=== PATIENT | female | born 1975 | race American Indian/Alaskan Native ===

== ENCOUNTER 2018-01-09 20:19 | Emergency (ER) | payer BC ==
[2018-01-09 21:20] LABS: Basophils % (Auto) 0.3 % (0.0-1.8); Eosinophils % (Auto) 0.1 % (0.0-4.3); Hematocrit 39.4 % (30.3-42.9); Hemoglobin 13.4 gm/dl (10.1-14.3); Lymphocytes # (Auto) 1.5 K/mm3 (1.2-5.4); Mean Corpuscular HGB Conc 34 % (30-34); Mean Corpuscular Hemoglobin 29 pg (28-32); Mean Corpuscular Volume 86 fl (79-97); Monocytes # (Auto) 1.4 K/mm3 (0.0-0.8); Monocytes % (Auto) 9.6 % (0.0-7.3); Platelet Count 300 K/mm3 (140-440); Red Blood Count 4.58 M/mm3 (3.65-5.03); Red Cell Distribution Width 14.4 % (13.2-15.2)
[2018-01-09 21:29] LABS: Alanine Aminotransferase 8 units/L (7-56); BUN/Creatinine Ratio 13; Blood Urea Nitrogen 10 mg/dL (7-17); Calcium 8.6 mg/dL (8.4-10.2); Hemolysis Index 8
[2018-01-09 22:31] LABS: HCG Qualitative,Urine Negative (Negative)
--- NOTE | 2018-01-09 23:10 | XRay Report ---
FINAL REPORT PROCEDURE: XR CHEST ROUTINE 2V TECHNIQUE: PA and lateral chest radiographs were obtained. CPT 96997 HISTORY: cough, fever COMPARISON: No prior studies are available for comparison. FINDINGS: Heart: Normal. Mediastinum/Vessels: Normal. Lungs/Pleural space: Normal. Bony thorax: No acute osseous abnormality. Other: IMPRESSION: Normal examination.
[2018-01-09] MEDS ORDERED: NACL 0.9% 1000 ML 1,000 ML IV ONE (23:29)
[2018-01-09] MEDS ORDERED: CLEOCIN 600 MG/50 mL 600 MG/50 ML BAG IV ONE (23:29)
[2018-01-09] MEDS ORDERED: FLAGYL 500 MG/100 ML 500 MG/100 ML BAG IV ONE (23:29)
--- NOTE | 2018-01-09 23:44 | Emergency Department Report ---
ED Abdominal Pain HPI - General Chief Complaint: Fever Stated Complaint: FEVER; BODYACHES Time Seen by Provider: 01/09/18 23:00 Source: patient Mode of arrival: Wheelchair Limitations: No Limitations - History of Present Illness Initial Comments: This is a 42-year-old female nontoxic, well nourished in appearance, no acute signs of distress presents to the ED with c/o of abdominal pain, fever, chills, body aches and nausea 1. Patient denies any vomiting. Patient describes abdominal pain primarily in the right and left upper quadrant. Patient stated he has subjective fever. Patient denies taking anything [id number]. Patient denies any recent travels or long car rides. Patient denies any chest pain, short of breath, numbness, tingling, back pain, headache, stiff neck. Patient denies any urinary symptoms. Patient states allergies to penicillin. Past medical history includes arthritis, asthma, hypertension and headache and seizures. MD Complaint: abdominal pain -: This morning Location: LUQ, RUQ Radiation: none Migration to: no migration Severity scale (0 -10): 8 Quality: cramping, aching Consistency: constant Improves With: nothing Worsens With: nothing Associated Symptoms: nausea, fever. denies: vomiting, diarrhea, chills, constipation, dysuria, hematemesis, hematochezia, melena, hematuria, anorexia, syncope - Related Data Home Medications Medication Instructions Recorded Confirmed Last Taken Albuterol Sulfate [Ventolin HFA] 2 puff INHALATION Q4HR PRN 08/29/13 10/31/14 Unknown Lisinopril/Hydrochlorothiazide 1 tab PO QDAY 08/29/13 10/31/14 11/01/13 [Zestoretic 20-25 mg] Metoprolol Xl [Metoprolol 1 tab PO QDAY 08/29/13 10/31/14 11/01/13 SUCCINATE ER TAB] Previous Rx's Medication Instructions Recorded Last Taken Type Albuterol *Only Ed* [Proventil 2.5 mg IH Q4H PRN #1 pack 08/29/13 11/01/13 Rx 0.5% NEBS] Albuterol Sulfate [Ventolin HFA] 2 puff IH Q4H PRN #1 hfa.aer.ad 08/29/13 18:00 Rx HYDROcodone/APAP 5-325 [[place] 1 each PO Q8HR PRN #14 tablet 01/10/15 Unknown Rx 5/325] Ibuprofen [Motrin 800 MG tab] 800 mg PO TID PRN #30 tablet 01/10/15 Unknown Rx methOCARBAMOL [Robaxin] 500 mg PO BID PRN #30 tab 01/10/15 Unknown Rx Albuterol Sulfate [Albuterol 0.63% 0.63 mg IH Q4HR PRN #2 ml 11/03/15 Unknown Rx NEBS] Albuterol Sulfate [Proair 90 mcg IH Q4HR PRN #2 aer.pow.ba 11/03/15 Unknown Rx Respiclick] Ipratropium Munday [Atrovent Hfa] 12.9 gm IH Q4HR #2 hfa.aer.ad 11/03/15 Unknown Rx Ipratropium [Atrovent NEB] 0.5 mg IH Q4HR #2 ml 11/03/15 Unknown Rx predniSONE [Deltasone] 40 mg PO QDAY #8 tab 11/03/15 Unknown Rx Cyclobenzaprine [Flexeril] 10 mg PO TID PRN #15 tablet 07/22/16 Unknown Rx Ibuprofen [Motrin] 800 mg PO Q8HR PRN #15 tablet 07/22/16 Unknown Rx Clindamycin [Clindamycin CAP] 300 mg PO Q8H 7 Days cap 01/10/18 Unknown Rx Fluconazole [Diflucan TAB] 150 mg PO ONCE #1 tablet 01/10/18 Unknown Rx Ibuprofen [Motrin] 600 mg PO Q6H PRN #30 tablet 01/10/18 Unknown Rx Allergies Allergy/AdvReac Type Severity Reaction Status Date / Time Penicillins Allergy Rash Verified 07/23/14 16:50 Tomato Allergy Hives Uncoded 07/21/16 22:52 ED Review of Systems ROS: Stated complaint: FEVER; BODYACHES Other details as noted in HPI Constitutional: fever. denies: chills Eyes: denies: eye pain, eye discharge, vision change ENT: denies: ear pain, throat pain Respiratory: denies: cough, shortness of breath, wheezing Cardiovascular: denies: chest pain, palpitations Endocrine: no symptoms reported Gastrointestinal: abdominal pain, nausea. denies: vomiting, diarrhea, constipation Genitourinary: denies: urgency, dysuria, discharge Musculoskeletal: denies: back pain, joint swelling, arthralgia Skin: denies: rash, lesions Neurological: denies: headache, weakness, paresthesias Psychiatric: denies: anxiety, depression Hematological/Lymphatic: denies: easy bleeding, easy bruising ED Past Medical Hx - Past Medical History Previous Medical History?: Yes Hx Hypertension: Yes Hx Arthritis: Yes Hx Headaches / Migraines: Yes Hx Seizures: Yes Hx Asthma: Yes Additional medical history: anemia, svt, endometriosis - Surgical History Past Surgical History?: Yes Additional Surgical History: hernia, tubal ligation knee surgery - Social History Smoking Status: Never Smoker Substance Use Type: None - Medications Home Medications: Home Medications Medication Instructions Recorded Confirmed Last Taken Type Albuterol *Only Ed* [Proventil 2.5 mg IH Q4H PRN #1 pack 08/29/13 10/31/1405/07 Rx 0.5% NEBS] Albuterol Sulfate [Ventolin HFA] 2 puff IH Q4H PRN #1 hfa.aer.ad 08/29/1311/01/13 18:00 Rx Albuterol Sulfate [Ventolin HFA] 2 puff INHALATION Q4HR PRN 08/29/13 10/31/14 Unknown History Lisinopril/Hydrochlorothiazide 1 tab PO QDAY 08/29/13 10/31/14 11/01/13 History [Zestoretic 20-25 mg] Metoprolol Xl [Metoprolol 1 tab PO QDAY 08/29/13 10/31/14 11/01/13 History SUCCINATE ER TAB] HYDROcodone/APAP 5-325 [[place] 1 each PO Q8HR PRN #14 tablet 01/10/15 Unknown Rx 5/325] Ibuprofen [Motrin 800 MG tab] 800 mg PO TID PRN #30 tablet 01/10/15 Unknown Rx methOCARBAMOL [Robaxin] 500 mg PO BID PRN #30 tab 01/10/15 Unknown Rx Albuterol Sulfate [Albuterol 0.63% 0.63 mg IH Q4HR PRN #2 ml 11/03/15 Unknown Rx NEBS] Albuterol Sulfate [Proair 90 mcg IH Q4HR PRN #2 aer.pow.ba 11/03/15 Unknown Rx Respiclick] Ipratropium Munday [Atrovent Hfa] 12.9 gm IH Q4HR #2 hfa.aer.ad 11/03/15 Unknown Rx Ipratropium [Atrovent NEB] 0.5 mg IH Q4HR #2 ml 11/03/15 Unknown Rx predniSONE [Deltasone] 40 mg PO QDAY #8 tab 11/03/15 Unknown Rx Cyclobenzaprine [Flexeril] 10 mg PO TID PRN #15 tablet 07/22/16 Unknown Rx Ibuprofen [Motrin] 800 mg PO Q8HR PRN #15 tablet 07/22/16 Unknown Rx Clindamycin [Clindamycin CAP] 300 mg PO Q8H 7 Days cap 01/10/18 Unknown Rx Fluconazole [Diflucan TAB] 150 mg PO ONCE #1 tablet 01/10/18 Unknown Rx Ibuprofen [Motrin] 600 mg PO Q6H PRN #30 tablet 01/10/18 Unknown Rx ED Physical Exam - General Limitations: No Limitations General appearance: alert, in no apparent distress - Head Head exam: Present: atraumatic, normocephalic - Eye Eye exam: Present: normal appearance Pupils: Present: normal accommodation - ENT ENT exam: Present: normal exam, mucous membranes moist - Neck Neck exam: Present: normal inspection, full ROM. Absent: tenderness, meningismus, lymphadenopathy - Respiratory Respiratory exam: Present: normal lung sounds bilaterally. Absent: respiratory distress, wheezes, rales, rhonchi, stridor, chest wall tenderness, accessory muscle use, decreased breath sounds, prolonged expiratory - Cardiovascular Cardiovascular Exam: Present: regular rate, normal rhythm, tachycardia, normal heart sounds. Absent: irregular rhythm, systolic murmur, diastolic murmur, rubs , gallop - GI/Abdominal GI/Abdominal exam: Present: soft, tenderness (Right and Left upper quadrants), normal bowel sounds. Absent: distended, guarding, rebound, rigid, diminished bowel sounds - Expanded GI/Abdominal Exam Expanded GI/Abdominal exam: Absent: psoas sign, obturator sign, heel tap sign, Felipe's sign, Rovsing's sign, tenderness at [place]bur[place]'s Point, ascites - Rectal Rectal exam: Present: deferred - Extremities Exam Extremities exam: Present: normal inspection, full ROM, normal capillary refill. Absent: tenderness, calf tenderness - Back Exam Back exam: Present: normal inspection, full ROM. Absent: tenderness, CVA tenderness (R), CVA tenderness (L), muscle spasm, paraspinal tenderness, vertebral tenderness, rash noted - Neurological Exam Neurological exam: Present: alert, oriented X3, CN II-XII intact, normal gait - Psychiatric Psychiatric exam: Present: normal affect, normal mood - Skin Skin exam: Present: warm, dry, intact, normal color. Absent: rash ED Course Vital Signs 01/09/18 01/09/18 01/09/18 20:30 20:35 23:42 Temperature 99.1 F 99.1 F 98.8 F Pulse Rate 114 H 117 H 82 Respiratory 17 17 20 Rate Blood Pressure 145/95 Blood Pressure 145/95 137/91 [Left] O2 Sat by Pulse 98 99 99 Oximetry - Reevaluation(s) Reevaluation #1: 01/09/18 23:44 Patient is speaking in full sentences with no signs of distress noted. ED Medical Decision Making - Lab Data Result diagrams: 01/09/18 20:54 01/09/18 20:50 - Medical Decision Making This is a 42-year-old female that presents with bodyaches and abdominal pain. Patient is stable and was examined by me. Dr. Saldana was consulted about patient and agrees to the ED plan of care and discharge. Labs obtained. Chest x -ray obtained and within normal limits and dictated by the radiologist. Patient denies any respiratory symptoms. CT of abdomen/pelvis with contrast obtained and also dictated by the radiologist within normal limits. EKG obtained with normal sinus rhytm. Sepsis protocol orders obtained. Vital signs stable prior to discharge. Patient did receive clindamycin and Flagyl IV in the ED. I will discharge patient with clindamycin and Motrin. Fever episode. Patient also received 1 L of normal saline. Patient's mother is comfortable at the bedside and states she will go the patient after discharge due to drowsiness of morphine. Patient was referred to Follow-up with a primary care doctor in 3-5 days or if symptoms worsen and continue return to emergency room as soon as possible. At time of discharge, the patient does not seem toxic or ill in appearance. No acute signs of distress noted. Patient agrees to discharge treatment plan of care. No further questions noted by the patient. Critical care attestation.: If time is entered above; I have spent that time in minutes in the direct care of this critically ill patient, excluding procedure time. ED Disposition Clinical Impression: Body aches Abdominal pain Qualifiers: Abdominal location: upper abdomen, unspecified Qualified Code(s): R10.10 - Upper abdominal pain, unspecified Disposition: DC- TO HOME OR SELFCARE Is pt being admited?: No Does the pt Need Aspirin: No Condition: Stable Instructions: Abdominal Pain (ED) Additional Instructions: Follow-up with a primary care doctor in 3-5 days or if symptoms worsen and continue return to emergency room as soon as possible. Prescriptions: Clindamycin [Clindamycin CAP] 300 mg PO Q8H 7 Days cap Fluconazole [Diflucan TAB] 150 mg PO ONCE #1 tablet Ibuprofen [Motrin] 600 mg PO Q6H PRN #30 tablet PRN Reason: Fever Referrals: RYAN WEST MD [Primary Care Provider] - 3-5 Days PRIMARY CARE, [Referring] - 3-5 Days [facility] [Outside] - 3-5 Days [facility] [Outside] - 3-5 Days Forms: Work/School Release Form(ED)
[2018-01-09] MEDS ORDERED: NACL ONE (23:51)
[2018-01-10 00:19] LABS: Lipase 14 units/L (13-60)
[2018-01-10] MEDS ORDERED: ZOFRAN IV ONE (01:05)
[2018-01-10] MEDS ORDERED: MORPHINE IV ONE (01:05)
[2018-01-10 01:57] LABS: Bacteria,Urine 1+ /HPF (Negative); Bilirubin,Urine NEG (Negative); Blood,Urine MOD (Negative); Color,Urine Yellow (Yellow); Mucus,Urine FEW /HPF; Protein,Urine <15 mg/dL mg/dL (Negative)
--- NOTE | 2018-01-10 02:03 | Cat Scan Report ---
FINAL REPORT PROCEDURE: CT ABDOMEN PELVIS W CON TECHNIQUE: Computerized axial tomography of the abdomen and pelvis was performed after the IV injection of iodinated nonionic contrast. HISTORY: Fever/Sepsis COMPARISON: No prior studies are available for comparison. FINDINGS: Visualized lower thorax: No significant abnormality. Liver: Normal size and attenuation. Spleen: Normal size and attenuation. Gallbladder and biliary system: Normal. Pancreas: Normal. Adrenals: Normal. Kidneys: Normal. GI tract: There is no bowel obstruction, colitis or enteritis. The appendix is normal.. Lymph nodes and mesentery: Normal. Vasculature: Normal. Bladder: Normal. Reproductive organs: Uterus is intact.. There is small uterine fibroids. There is a 2.4 centimeter left ovarian cyst. Peritoneum: There is no ascites, free air, abscess or adenopathy.. Musculoskeletal structures: No significant abnormality. Other: None. IMPRESSION: There is no bowel obstruction, colitis or enteritis. The appendix is normal.. Uterus is intact.. There is small uterine fibroids. There is a 2.4 centimeter left ovarian cyst. There is no ascites, free air, abscess or adenopathy..
[2018-01-10 04:57] VITALS: BP 125/78
== END 2018-01-10 04:54 | disposition home or self-care (01) ==
LOC: ED 20:19
DX: R10.9 Unspecified abdominal pain (principal); M79.1 Myalgia; I10 Essential (primary) hypertension; J45.909 Unspecified asthma, uncomplicated
CPT/HCPCS: 36415; 71046; 74177; 80053; 81001; 81025; 82140; 82150; 83690; 85025; 87040; 87086; 93005; 93010; 96365; 96366; 96368; 96375; 99285; J2270; J2405; J7030; Q9967

== ENCOUNTER 2018-02-25 17:00 | Emergency (ER) | payer BC ==
[2018-02-25] MEDS ORDERED: HCTZ PO ONE (18:24)
[2018-02-25] MEDS ORDERED: ZESTRIL PO ONE (18:24)
[2018-02-25] MEDS ORDERED: NORVASC ONE (18:34)
[2018-02-25 18:42] VITALS: BP 186/118
[2018-02-25] MEDS ORDERED: NORVASC PO ONE (18:44)
[2018-02-25] MEDS ORDERED: TOPROL XL PO ONE (19:30)
[2018-02-25 19:59] LABS: Basophils % (Auto) 0.5 % (0.0-1.8); Eosinophils % (Auto) 0.2 % (0.0-4.3); Hematocrit 39.4 % (30.3-42.9); Hemoglobin 13.1 gm/dl (10.1-14.3); Lymphocytes # (Auto) 1.9 K/mm3 (1.2-5.4); Lymphocytes % (Auto) 19.6 % (13.4-35.0); Mean Corpuscular HGB Conc 33 % (30-34); Mean Corpuscular Hemoglobin 29 pg (28-32); Mean Corpuscular Volume 87 fl (79-97); Monocytes # (Auto) 0.7 K/mm3 (0.0-0.8); Monocytes % (Auto) 7.8 % (0.0-7.3); Platelet Count 318 K/mm3 (140-440); Red Blood Count 4.53 M/mm3 (3.65-5.03)
[2018-02-25 20:22] LABS: BUN/Creatinine Ratio 14; Blood Urea Nitrogen 11 mg/dL (7-17); Calcium 9.2 mg/dL (8.4-10.2); Hemolysis Index 62
== END 2018-02-26 00:22 | disposition left against medical advice (07) ==
LOC: ED 17:00
DX: M79.602 Pain in left arm (principal); Z53.21 Procedure and treatment not carried out due to patient leaving prior to being seen by health care provider
CPT/HCPCS: 36415; 80048; 85025

== ENCOUNTER 2019-01-30 17:16 | Inpatient (IN) | payer BC ==
[2019-01-30] MEDS ORDERED: ATROVENT IH ONE (17:27)
[2019-01-30] MEDS ORDERED: PROVENTIL IH ONE (17:27)
[2019-01-30 17:48] LABS: Basophils % (Auto) 0.4 % (0.0-1.8); Eosinophils % (Auto) 0.2 % (0.0-4.3); Hematocrit 36.1 % (30.3-42.9); Hemoglobin 12.3 gm/dl (10.1-14.3); Lymphocytes # (Auto) 2.4 K/mm3 (1.2-5.4); Lymphocytes % (Auto) 42.6 % (13.4-35.0); Mean Corpuscular HGB Conc 34 % (30-34); Mean Corpuscular Volume 88 fl (79-97); Monocytes # (Auto) 0.4 K/mm3 (0.0-0.8); Monocytes % (Auto) 7.1 % (0.0-7.3); Platelet Count 232 K/mm3 (140-440); Red Blood Count 4.11 M/mm3 (3.65-5.03); Red Cell Distribution Width 14.5 % (13.2-15.2)
[2019-01-30] MEDS ORDERED: DELTASONE PO ONE (18:03)
[2019-01-30 18:04] LABS: BUN/Creatinine Ratio 18; Blood Urea Nitrogen 11 mg/dL (7-17); Calcium 8.8 mg/dL (8.4-10.2); Hemolysis Index 7
--- NOTE | 2019-01-30 18:05 | XRay Report ---
PROCEDURE: XR CHEST 1V AP TECHNIQUE: Chest radiograph , single frontal view. HISTORY: Chest Pain, DENAE COMPARISONS: CXR 03/26/2018 . FINDINGS: Heart: Normal. Mediastinum/Vessels: Normal. Lungs/Pleural space: Normal. Bony thorax: No acute osseous abnormality. Life support devices: None. IMPRESSION: No acute cardiopulmonary abnormality. No change This document is electronically signed by Roberta York MD., Jan 30 2019 06:03:41 PM ET
--- NOTE | 2019-01-30 18:08 | Emergency Department Report ---
ED Asthma HPI - General Chief Complaint: Dyspnea/Respdistress Stated Complaint: ASTHMA FLARE UP Time Seen by Provider: 01/30/19 17:56 Source: patient Mode of arrival: Ambulatory Limitations: No Limitations - History of Present Illness Initial Comments: Ms. Alvarado is a 43-year-old female with past medical history of seizure, migraine headache, asthma, diabetes, hypertension who presents with shortness of breath, wheezing and cough. She has mild chest tightness. No relief with home nebulizer and bronchodilator therapy. She has had persistent dry cough and wheezing throughout the day beginning this morning. Feels out of breath. Possible trigger: pollen NO sick contacts MD Complaint: "asthma attack", shortness of breath, wheezing -: Gradual, This afternoon Severity: mild Context: none known Associated Symptoms: dry cough, chest pain Treatments Prior to Arrival: inhaled bronchodilator - Related Data Current Asthma Therapy: inhaled bronchodilator Home Medications Medication Instructions Recorded Confirmed Last Taken Albuterol Sulfate [Ventolin HFA] 2 puff INHALATION Q4HR PRN 08/29/13 10/17/18 Unknown Amlodipine Besylate [Norvasc] 5 mg PO QDAY 03/27/18 10/17/18 09/06/18 Divalproex Sodium [Depakote ER] 3,000 mg PO HS 03/27/18 10/18/18 09/06/18 Previous Rx's Medication Instructions Recorded Last Taken Type Famotidine [Pepcid] 20 mg PO BID #60 tablet 03/28/18 09/06/18 Rx Cyclobenzaprine [Flexeril 10 MG 10 mg PO TID PRN #12 tablet 08/07/18 09/04/18 Rx TAB] Ibuprofen [Motrin 600 MG tab] 600 mg PO Q8H PRN #12 tablet 08/07/18 09/05/18 Rx traMADol [Ultram 50 MG tab] 50 mg PO Q6HR PRN #12 tablet 08/07/18 09/06/18 Rx Aspirin [Aspirin BABY CHEW TAB] 81 mg PO QDAY #30 tab.chew 09/08/18 Unknown Rx Simvastatin [Zocor TAB] 40 mg PO QHS #30 tablet 09/08/18 Unknown Rx Meclizine [Antivert] 25 mg PO Q8H PRN #30 tablet 10/19/18 Unknown Rx Prednisone [predniSONE 10 mg 10 mg PO .TAPER #1 tab.ds.pk 01/30/19 Unknown Rx (6-Day Pack, 21 Tabs)] Allergies Allergy/AdvReac Type Severity Reaction Status Date / Time Penicillins Allergy Rash Verified 10/17/18 15:55 Tomato Allergy Hives Uncoded 07/21/16 22:52 ED Review of Systems ROS: Stated complaint: ASTHMA FLARE UP Other details as noted in HPI Comment: All other systems reviewed and negative Constitutional: denies: fever, malaise Respiratory: cough, shortness of breath, wheezing Cardiovascular: chest pain ED Past Medical Hx - Past Medical History Previous Medical History?: Yes Hx Hypertension: Yes Hx Heart Attack/AMI: No Hx Congestive Heart Failure: No Hx Diabetes: Yes Hx Deep Vein Thrombosis: No Hx Pulmonary Embolism: No Hx Liver Disease: No Hx Arthritis: Yes Hx Headaches / Migraines: Yes Hx Seizures: Yes Hx Asthma: Yes Hx COPD: No Hx Tuberculosis: No Hx Dementia: No Additional medical history: anemia, svt, endometriosis, BOILS - Surgical History Past Surgical History?: Yes Hx Coronary Stent: No Hx Pacemaker: No Hx Internal Defibrillator: No Additional Surgical History: hernia, tubal ligation, right knee surgery, heart ablation. right shoulder dislocation - Social History Smoking Status: Never Smoker - Medications Home Medications: Home Medications Medication Instructions Recorded Confirmed Last Taken Type Albuterol Sulfate [Ventolin HFA] 2 puff INHALATION Q4HR PRN 08/29/13 10/17/18 Unknown History Amlodipine Besylate [Norvasc] 5 mg PO QDAY 03/27/18 10/17/18 09/06/18 History Divalproex Sodium [Depakote ER] 3,000 mg PO HS 03/27/18 10/18/18 09/06/18 His tory Famotidine [Pepcid] 20 mg PO BID #60 tablet 03/28/18 10/17/18 09/06/18 Rx Cyclobenzaprine [Flexeril 10 MG 10 mg PO TID PRN #12 tablet 08/07/18 10/17/18 09/04/18 Rx TAB] Ibuprofen [Motrin 600 MG tab] 600 mg PO Q8H PRN #12 tablet 08/07/18 10/17/18 09/05/18 Rx traMADol [Ultram 50 MG tab] 50 mg PO Q6HR PRN #12 tablet 11/10/17/18 09/06/18 Rx Aspirin [Aspirin BABY CHEW TAB] 81 mg PO QDAY #30 tab.chew 09/08/18 10/17/18 Unknown Rx Simvastatin [Zocor TAB] 40 mg PO QHS #30 tablet 09/08/18 10/17/18 Unknown Rx Meclizine [Antivert] 25 mg PO Q8H PRN #30 tablet 10/19/18 Unknown Rx Prednisone [predniSONE 10 mg 10 mg PO .TAPER #1 tab.ds.pk 01/30/19 Unknown Rx (6-Day Pack, 21 Tabs)] ED Physical Exam - General Limitations: No Limitations General appearance: alert, in no apparent distress, other (frequent cough) - Head Head exam: Present: atraumatic, normocephalic - Eye Eye exam: Present: normal appearance - ENT ENT exam: Present: mucous membranes moist - Neck Neck exam: Present: normal inspection - Respiratory Respiratory exam: Present: wheezes, decreased breath sounds, prolonged expiratory. Absent: respiratory distress, rales, rhonchi - Cardiovascular Cardiovascular Exam: Present: regular rate, normal rhythm, normal heart sounds. Absent: systolic murmur, diastolic murmur, rubs, gallop - GI/Abdominal GI/Abdominal exam: Present: soft, normal bowel sounds. Absent: distended, tenderness, guarding, rebound - Extremities Exam Extremities exam: Present: normal inspection - Back Exam Back exam: Present: normal inspection - Neurological Exam Neurological exam: Present: alert, oriented X3 - Psychiatric Psychiatric exam: Present: normal affect, normal mood - Skin Skin exam: Present: warm, dry, intact, normal color. Absent: rash ED Course Vital Signs 01/30/19 01/30/19 01/30/19 17:23 17:31 17:37 Temperature 98.4 F Pulse Rate 120 H Pulse Rate [ 77 Anterior Bilateral] Respiratory 32 H Rate Respiratory 22 Rate [Anterior Bilateral] Blood Pressure 217/112 O2 Sat by Pulse 99 99 Oximetry 01/30/19 01/30/19 01/30/19 17:45 18:00 18:15 Temperature Pulse Rate Pulse Rate [ Anterior Bilateral] Respiratory Rate Respiratory Rate [Anterior Bilateral] Blood Pressure 161/84 176/89 152/81 O2 Sat by Pulse 94 96 97 Oximetry 01/30/19 01/30/19 01/30/19 18:20 18:30 18:40 Temperature Pulse Rate 78 Pulse Rate [ 118 H Anterior Bilateral] Respiratory Rate Respiratory 20 Rate [Anterior Bilateral] Blood Pressure 161/92 O2 Sat by Pulse 97 Oximetry 01/30/19 01/30/19 01/30/19 18:45 19:00 19:15 Temperature Pulse Rate Pulse Rate [ Anterior Bilateral] Respiratory Rate Respiratory Rate [Anterior Bilateral] Blood Pressure 147/80 146/75 125/78 O2 Sat by Pulse 97 96 100 Oximetry 01/30/19 01/30/19 01/30/19 19:30 19:45 20:00 Temperature Pulse Rate Pulse Rate [ Anterior Bilateral] Respiratory Rate Respiratory Rate [Anterior Bilateral] Blood Pressure 141/79 134/78 143/83 O2 Sat by Pulse 99 94 Oximetry - Reevaluation(s) Reevaluation #1: 01/30/19 20:15 mild improvement after continuous neb treatment, still feels short of breath with frequent cough, easily winded with talking in seated position ED Medical Decision Making - Lab Data Result diagrams: 01/30/19 17:36 01/30/19 17:36 - Radiology Data Radiology results: image reviewed interpreted by me: AP portable chest radiograph one view interpreted by me. My impression: No infiltrate, no pneumothorax, normal cardiac silhouette, normal mediastinum, no gross osseous abnormality, no acute process - Medical Decision Making Ms. Alvarado presents with acute asthma exacerbation. blood pressure markedly decreased after receiving asthma treatment. After continuous nebulizer therapy, IV magnesium, oral cough syrup, steroids and antibiotics, Ms. Alvarado still continued to haveshortness of breath frequent cough. Admitted to hospitalist service for further treatment Critical care attestation.: If time is entered above; I have spent that time in minutes in the direct care of this critically ill patient, excluding procedure time. ED Disposition Clinical Impression: Acute asthma exacerbation Disposition: OP ADMIT IP TO THIS HOSP Is pt being admited?: Yes Does the pt Need Aspirin: No Condition: Stable Prescriptions: Prednisone [predniSONE 10 mg (6-Day Pack, 21 Tabs)] 10 mg PO .TAPER #1 tab.ds.pk
[2019-01-30] MEDS ORDERED: TYLENOL #3 PO ONE (18:10)
[2019-01-30] MEDS ORDERED: ZOFRAN ODT PO ONE (18:10)
[2019-01-30] MEDS ORDERED: MAGNESIUM SULFATE 2GM/50ML 2 GM/50 ML BAG IV ONE (20:12)
[2019-01-30] MEDS ORDERED: LEVAQUIN PO ONE (20:12)
[2019-01-30] MEDS ORDERED: ROBITUSSIN AC PO STA (20:13)
[2019-01-30] MEDS ORDERED: TYLENOL PO PRN (22:05)
[2019-01-30] MEDS ORDERED: SODIUM CHLORIDE FLUSH SYRINGE 10 ML IV PRN (22:05)
[2019-01-30] MEDS ORDERED: ZOFRAN IV PRN (22:05)
[2019-01-30] MEDS ORDERED: D50W (25GM) Syringe IV PRN (22:13)
[2019-01-30] MEDS ORDERED: APRESOLINE IV PRN (22:16)
[2019-01-30] MEDS: NORVASC PO SCH (22:22)
--- NOTE | 2019-01-30 22:46 | History and Physical Report ---
History of Present Illness Date of examination: 01/30/19 Date of admission: 01/30/19 21:49 Chief complaint: Shortness of breath History of present illness: Patient is a 43 year old -[place]er female with history of asthma, epilepsy and hypertension who presented to the ED on account of 1 day history of worsening shortness of breath. She had associated dry cough, chest pain, headaches, nausea without vomiting and lightheadedness. She denies palpitation, fever, chills, sore throat, runny nose or congestion, leg swelling, orthopnea or PND. No syncope or loss of consciousness. No abdominal pain, constipation, diarrhea, dysuria or frequency. No reported history of ill contacts. Past History Past Medical History: anemia (iron deficiency), diabetes, hypertension, hyperlipidemia, other (asthma, epilepsy, SVT, vitamin D deficiency) Past Surgical History: hernia repair, Other (Ablation, right knee surgery, tubal ligation, Cyst removal in left arm) Social history: other (patient has a remote history of cigarette smoking. She quit more than 20 years ago. She denies alcohol or illicit drug use.) Family history: diabetes (sister), hypertension (mother) Medications and Allergies Allergies Allergy/AdvReac Type Severity Reaction Status Date / Time Penicillins Allergy Rash Verified 10/17/18 15:55 Tomato Allergy Hives Uncoded 07/21/16 22:52 Home Medications Medication Instructions Recorded Confirmed Last Taken Type Albuterol Sulfate [Ventolin HFA] 2 puff INHALATION Q4HR PRN 08/29/13 10/17/18 Unknown History Amlodipine Besylate [Norvasc] 5 mg PO QDAY 03/27/18 10/17/18 09/06/18 History Divalproex Sodium [Depakote ER] 3,000 mg PO HS 03/27/18 10/18/18 09/06/18 History Famotidine [Pepcid] 20 mg PO BID #60 tablet 03/28/18 10/17/18 09/06/18 Rx Cyclobenzaprine [Flexeril 10 MG 10 mg PO TID PRN #12 tablet 08/07/18 10/17/18 09/04/18 Rx TAB] Ibuprofen [Motrin 600 MG tab] 600 mg PO Q8H PRN #12 tablet 08/07/18 10/17/18 09/05/18 Rx traMADol [Ultram 50 MG tab] 50 mg PO Q6HR PRN #12 tablet 08/07/18 10/17/18 09/06/18 Rx Aspirin [Aspirin BABY CHEW TAB] 81 mg PO QDAY #30 tab.chew 09/08/18 10/17/18 Unknown Rx Simvastatin [Zocor TAB] 40 mg PO QHS #30 tablet 09/08/18 10/17/18 Unknown Rx Meclizine [Antivert] 25 mg PO Q8H PRN #30 tablet 10/19/18 Unknown Rx Prednisone [predniSONE 10 mg 10 mg PO .TAPER #1 tab.ds.pk 01/30/19 Unknown Rx (6-Day Pack, 21 Tabs)] Active Meds: Active Medications Acetaminophen (Tylenol) 650 mg PO Q4H PRN PRN Reason: Pain MILD(1-3)/Fever >100.5/[facility] Albuterol/Ipratropium (Duoneb *Not For Prn Use*) 1 ampul IH Q4HRT [facility] Amlodipine Besylate (Norvasc) 10 mg PO QDAY [facility] Last Admin: 01/30/19 22:22 Dose: 10 mg Documented by: Dextrose (D50w (25gm) Syringe) 50 ml IV PRN PRN PRN Reason: Hypoglycemia Docusate Sodium (Colace) 100 mg PO BID [facility] Guaifenesin (Mucinex Er) 600 mg PO BID [facility] Hydralazine HCl (Apresoline) 10 mg IV Q4HR PRN PRN Reason: Blood Pressure Hydrocodone Bit/Homatropine Methylb (Hydromet) 5 ml PO Q6H PRN PRN Reason: Cough Azithromycin 500 mg/ Sodium (Chloride) 250 mls @ 250 mls/hr IV Q24HR [facility] Stop: 02/05/19 09:59 Insulin Human Lispro (Humalog) 0 unit SUB-Q ACHS [facility]; Protocol Methylprednisolone Sodium Succinate (Solu-Medrol) 125 mg IV Q6HR [facility] Ondansetron HCl (Zofran) 4 mg IV Q8H PRN PRN Reason: Nausea And Vomiting Oxycodone/Acetaminophen (Percocet 5/325) 1 tab PO Q4H PRN PRN Reason: Pain, Moderate (4-6) Sodium Chloride (Sodium Chloride Flush Syringe 10 Ml) 10 ml IV BID [facility] Sodium Chloride (Sodium Chloride Flush Syringe 10 Ml) 10 ml IV PRN PRN PRN Reason: LINE FLUSH Review of Systems All systems: negative (except as documented in the HPI, all other systems were reviewed and negative) Exam - Constitutional Vitals: Temp Pulse Resp BP Pulse Ox 98.4 F 118 H 20 158/89 87 01/30/19 17:23 01/30/19 18:40 01/30/19 18:40 01/30/19 22:00 01/30/19 22:00 General appearance: Present: mild distress, well-nourished - EENT Eyes: Present: PERRL, EOM intact ENT: hearing intact, clear oral mucosa - Neck Neck: Present: supple, normal ROM - Respiratory Respiratory effort: normal Respiratory: bilateral: wheezing - Cardiovascular Rhythm: regular Heart Sounds: Present: S1 & S2. Absent: rub, click - Extremities Extremities: pulses symmetrical, No edema Peripheral Pulses: within normal limits - Abdominal General gastrointestinal: Present: soft, non-tender, non-distended, normal bowel sounds Female genitourinary: Present: deferred - Integumentary Integumentary: Present: clear, warm, dry - Musculoskeletal Musculoskeletal: gait normal, strength equal bilaterally - Psychiatric Psychiatric: appropriate mood/affect, intact judgment & insight - Neurologic Neurologic: CNII-XII intact, moves all extremities Results - Labs CBC & Chem 7: 01/30/19 17:36 01/30/19 17:36 Labs: Laboratory Last Values WBC 5.7 K/mm3 (4.5-11.0) 01/30/19 17:36 RBC 4.11 M/mm3 (3.65-5.03) 01/30/19 17:36 Hgb 12.3 gm/dl (10.1-14.3) 01/30/19 17:36 Hct 36.1 % (30.3-42.9) 01/30/19 17:36 MCV 88 fl (79-97) 01/30/19 17:36 MCH 30 pg (28-32) 01/30/19 17:36 MCHC 34 % (30-34) 01/30/19 17:36 RDW 14.5 % (13.2-15.2) 01/30/19 17:36 Plt Count 232 K/mm3 (140-440) 01/30/19 17:36 Lymph % (Auto) 42.6 % (13.4-35.0) H 01/30/19 17:36 [place] % (Auto) 7.1 % (0.0-7.3) 01/30/19 17:36 Eos % (Auto) 0.2 % (0.0-4.3) 01/30/19 17:36 Baso % (Auto) 0.4 % (0.0-1.8) 01/30/19 17:36 Lymph # 2.4 K/mm3 (1.2-5.4) 01/30/19 17:36 [place] # 0.4 K/mm3 (0.0-0.8) 01/30/19 17:36 Eos # 0.0 K/mm3 (0.0-0.4) 01/30/19 17:36 Baso # 0.0 K/mm3 (0.0-0.1) 01/30/19 17:36 Seg Neutrophils % 49.7 % (40.0-70.0) 01/30/19 17:36 Seg Neutrophils # 2.8 K/mm3 (1.8-7.7) 01/30/19 17:36 Sodium 140 mmol/L (137-145) 01/30/19 17:36 Potassium 3.6 mmol/L (3.6-5.0) 01/30/19 17:36 Chloride 101.7 mmol/L (98-107) 01/30/19 17:36 Carbon Dioxide 26 mmol/L (22-30) 01/30/19 17:36 16 mmol/L 01/30/19 17:36 BUN 11 mg/dL (7-17) 01/30/19 17:36 0.6 mg/dL (0.7-1.2) L 01/30/19 17:36 Estimated GFR > 60 ml/min 01/30/19 17:36 18 % 01/30/19 17:36 Glucose 90 mg/dL (65-100) 01/30/19 17:36 Calcium 8.8 mg/dL (8.4-10.2) 01/30/19 17:36 < 0.010 ng/mL (0.00-0.029) 01/30/19 17:36 Assessment and Plan Assessment and plan: Acute severe asthma exacerbation -Probably secondary to acute bronchitis -On IV steroids, mucinex, antibiotic and nebulizer breathing treatments -Influenza screen pending Acute hypoxemic respiratory failure -Continue oxygen supplementation as needed and nebulizer breathing treatments Hypertensive urgency -On antihypertensives, adjust as needed SIRS -Likely due to noninfectious process -Urinalysis pending Atypical chest pain, rule out ACS -Serial troponin level monitoring History of epilepsy -Stable -Resume home medication -Seizure precautions DM2 -Controlled HLD -On statin History of SVT -Heart rate controlled History of iron deficiency anemia -H/H stable DVT prophylaxis with Lovenox Disposition: For discharge when medically stable Time spent: 38 minutes
[2019-01-30] MEDS: MUCINEX ER PO SCH (23:37)
[2019-01-31] MEDS: SOLU-Medrol IV SCH ×4 (00:03→17:39)
[2019-01-31] MEDS: DUONEB *Not for PRN Use IH SCH ×7 (00:45→23:52)
[2019-01-31] MEDS: NACL 0.9% 1000 ML 1,000 ML IV SCH ×4 (01:43→23:52)
[2019-01-31] MEDS: PERCOCET 5/325 PO PRN ×3 (01:53→23:01)
[2019-01-31 02:29] LABS: Bilirubin,Urine NEG (Negative); Blood,Urine LG (Negative); Color,Urine Straw (Yellow); Mucus,Urine 1+ /HPF; Protein,Urine <15 mg/dL mg/dL (Negative); Urobilinogen,Urine < 2.0 mg/dL (<2.0)
[2019-01-31 06:50] LABS: Alanine Aminotransferase 9 units/L (7-56); BUN/Creatinine Ratio 11; Blood Urea Nitrogen 8 mg/dL (7-17); Calcium 8.2 mg/dL (8.4-10.2); Hemolysis Index 8
[2019-01-31] MEDS: HumaLOG SUB-Q SCH ×4 (08:14→23:51)
--- NOTE | 2019-01-31 08:15 | Progress Note ---
Assessment and Plan Assessment and plan: --Lactic acidosis; possible UTI/acute bronchitis Empiric antibiotics, vigorous IV hydration, follow cultures Trend lactic acid levels --Acute exacerbation of bronchial asthma with acute bronchitis Continue oxygen and titrate O2 sats to within 90% , nebulizers Tapering dose of IV steroids , antibiotic , cough medicine --Acute hypoxemic respiratory failure ; present on admission oxygen titrate O2 sats to more than 90% and supportive care Evaluation for home oxygen --Hypertensive urgency; present on admission Continue antihypertensives. --SIRS Likely due to noninfectious process Urinalysis pending --Atypical chest pain, rule out ACS Serial cardiac enzymes negative Symptoms resolved , probably secondary to acute bronchitis --History of epilepsy Seizure precautions, antiepileptic medications --DM2 Accu-Chek sliding scale coverage and ADA diet --HLD; continue statin --History of SVT; stable --History of iron deficiency anemia; supportive care --DVT prophylaxis with Lovenox Disposition: Possible discharge in 1-2 days if stable Plan of care is reviewed with the patient and her nurse History Interval history: Patient seen and examined medical records reviewed Patient feels better no new complaints Admitted with shortness of breath and mild wheezing Symptoms slightly improved Elevated lactic acid levels Alert awake oriented 3 Vital signs noted Hospitalist Physical - Constitutional Vitals: Temp Pulse Resp BP Pulse Ox 97.6 F 88 18 148/84 95 01/31/19 06:06 01/31/19 06:06 01/31/19 06:06 01/31/19 06:06 01/31/19 06:06 General appearance: Present: mild distress, well-nourished - EENT Eyes: Present: PERRL, EOM intact - Neck Neck: Present: supple, normal ROM - Respiratory Respiratory effort: normal Respiratory: bilateral: diminished, rhonchi, wheezing - Cardiovascular Rhythm: regular Heart Sounds: Present: S1 & S2 - Extremities Extremities: no ischemia, No edema - Abdominal General gastrointestinal: soft, non-tender, non-distended, normal bowel sounds - Integumentary Integumentary: Present: clear, warm - Psychiatric Psychiatric: appropriate mood/affect, cooperative - Neurologic Neurologic: CNII-XII intact, moves all extremities Results - Labs CBC & Chem 7: 01/30/19 17:36 01/31/19 06:12 Labs: Laboratory Last Values WBC 5.7 K/mm3 (4.5-11.0) 01/30/19 17:36 RBC 4.11 M/mm3 (3.65-5.03) 01/30/19 17:36 Hgb 12.3 gm/dl (10.1-14.3) 01/30/19 17:36 Hct 36.1 % (30.3-42.9) 01/30/19 17:36 MCV 88 fl (79-97) 01/30/19 17:36 MCH 30 pg (28-32) 01/30/19 17:36 MCHC 34 % (30-34) 01/30/19 17:36 RDW 14.5 % (13.2-15.2) 01/30/19 17:36 Plt Count 232 K/mm3 (140-440) 01/30/19 17:36 Lymph % (Auto) 42.6 % (13.4-35.0) H 01/30/19 17:36 [place] % (Auto) 7.1 % (0.0-7.3) 01/30/19 17:36 Eos % (Auto) 0.2 % (0.0-4.3) 01/30/19 17:36 Baso % (Auto) 0.4 % (0.0-1.8) 01/30/19 17:36 Lymph # 2.4 K/mm3 (1.2-5.4) 01/30/19 17:36 [place] # 0.4 K/mm3 (0.0-0.8) 01/30/19 17:36 Eos # 0.0 K/mm3 (0.0-0.4) 01/30/19 17:36 Baso # 0.0 K/mm3 (0.0-0.1) 01/30/19 17:36 Seg Neutrophils % 49.7 % (40.0-70.0) 01/30/19 17:36 Seg Neutrophils # 2.8 K/mm3 (1.8-7.7) 01/30/19 17:36 Sodium 140 mmol/L (137-145) 01/31/19 06:12 Potassium 4.1 mmol/L (3.6-5.0) 01/31/19 06:12 Chloride 99.0 mmol/L (98-107) 01/31/19 06:12 Carbon Dioxide 21 mmol/L (22-30) L 01/31/19 06:12 24 mmol/L 01/31/19 06:12 BUN 8 mg/dL (7-17) 01/31/19 06:12 0.7 mg/dL (0.7-1.2) 01/31/19 06:12 Estimated GFR > 60 ml/min 01/31/19 06:12 11 % 01/31/19 06:12 Glucose 169 mg/dL (65-100) H 01/31/19 06:12 POC Glucose 119 (70-105) H 01/30/19 23:32 Lactic Acid 7.00 mmol/L (0.7-2.0) H* 01/31/19 06:12 Calcium 8.2 mg/dL (8.4-10.2) L 01/31/19 06:12 0.20 mg/dL (0.1-1.2) 01/31/19 06:12 AST 13 units/L (5-40) 01/31/19 06:12 ALT 9 units/L (7-56) 01/31/19 06:12 65 units/L (35-129) 01/31/19 06:12 < 0.010 ng/mL (0.00-0.029) 01/31/19 06:12 7.5 g/dL (6.3-8.2) 01/31/19 06:12 4.0 g/dL (3.9-5) 01/31/19 06:12 1.1 % 01/31/19 06:12 Straw (Yellow) 01/30/19 01:50 Clear (Clear) 01/30/19 01:50 5.0 (5.0-7.0) 01/30/19 01:50 Ur Specific [place] 1.015 (1.003-1.030) 01/30/19 01:50 <15 mg/dl mg/dL (Negative) 01/30/19 01:50 Neg mg/dL (Negative) 01/30/19 01:50 20 mg/dL (Negative) 01/30/19 01:50 Lg (Negative) 01/30/19 01:50 Neg (Negative) 01/30/19 01:50 Neg (Negative) 01/30/19 01:50 < 2.0 mg/dL (<2.0) 01/30/19 01:50 Ur Leukocyte Esterase Neg (Negative) 01/30/19 01:50 1.0 /HPF (0.0-6.0) 01/30/19 01:50 8.0 /HPF (0.0-6.0) 01/30/19 01:50 U Epithel Cells (Auto) 1.0 /HPF (0-13.0) 01/30/19 01:50 1+ /HPF 01/30/19 01:50 Active Medications - Current Medications Current Medications: Generic Name Dose Route Start Last Admin Trade Name Freq PRN Reason Stop Dose Admin Acetaminophen 650 mg 01/30/19 22:05 Tylenol PO Q4H PRN Pain MILD(1-3)/Fever >100.5/[facility] Albuterol/Ipratropium 1 ampul 01/31/19 00:00 01/31/19 04:31 Duoneb *Not For Prn Use* IH 1 ampul Q4HRT [facility] Administration Amlodipine Besylate 10 mg 01/30/19 22:16 01/30/19 22:22 Norvasc PO 10 mg QDAY [facility] Administration Aspirin 81 mg 01/31/19 10:00 Baby Aspirin PO QDAY [facility] Dextrose 50 ml 01/30/19 22:13 D50w (25gm) Syringe IV PRN PRN Hypoglycemia Divalproex Sodium 3,000 mg 01/31/19 22:00 Depakote Er PO HS [facility] Docusate Sodium 100 mg 01/31/19 10:00 Colace PO BID [facility] Enoxaparin Sodium 40 mg 01/31/19 10:00 Lovenox SUB-Q QDAY [facility] Guaifenesin 600 mg 01/30/19 23:00 01/30/19 23:37 Mucinex Er PO 600 mg BID [facility] Administration Hydralazine HCl 10 mg 01/30/19 22:16 Apresoline IV Q4HR PRN Blood Pressure Hydrocodone Bit/Homatropine Methylb 5 ml 01/30/19 22:09 Hydromet PO Q6H PRN Cough Azithromycin 500 mg/ Sodium 250 mls @ 250 mls/hr 01/31/19 10:00 Chloride IV 02/05/19 09:59 Q24HR [facility] Sodium Chloride 1,000 mls @ 125 mls/hr 01/31/19 02:00 01/31/19 01:43 Nacl 0.9% 1000 Ml IV 01/31/19 12:00 125 mls/hr DIRECT [facility] Administration Insulin Human Lispro 0 unit 01/31/19 07:30 Humalog SUB-Q ACHS [facility] Protocol Meclizine HCl 25 mg 01/31/19 00:20 Antivert PO Q8H PRN Vertigo Methylprednisolone Sodium Succinate 125 mg 01/31/19 00:00 01/31/19 05:42 Solu-Medrol IV 125 mg Q6HR [facility] Administration Ondansetron HCl 4 mg 01/30/19 22:05 01/31/19 01:56 Zofran IV 4 mg Q8H PRN Administration Nausea And Vomiting Oxycodone/Acetaminophen 1 tab 01/30/19 22:05 01/31/19 01:53 Percocet 5/325 PO 1 tab Q4H PRN Administration Pain, Moderate (4-6) Pravastatin Sodium 80 mg 01/31/19 22:00 Pravachol PO QHS [facility] Sodium Chloride 10 ml 01/31/19 10:00 Sodium Chloride Flush Syringe 10 Ml IV BID [facility] Sodium Chloride 10 ml 01/30/19 22:05 Sodium Chloride Flush Syringe 10 Ml IV PRN PRN LINE FLUSH
[2019-01-31] MEDS: MUCINEX ER PO SCH ×2 (09:32→23:00)
[2019-01-31] MEDS: COLACE PO SCH ×2 (09:32→23:00)
[2019-01-31] MEDS: BABY ASPIRIN PO SCH (09:33)
[2019-01-31] MEDS: NORVASC PO SCH (09:33)
[2019-01-31] MEDS: LOVENOX SUB-Q SCH (09:33)
[2019-01-31] MEDS: SODIUM CHLORIDE FLUSH SYRINGE 10 ML IV SCH ×2 (09:34→23:55)
[2019-01-31] MEDS ORDERED: ZITHROMAX 500 MG in NACL 0.9% 250ML 250 ML IV SCH (10:00)
[2019-01-31] MEDS ORDERED: NON-FORMULARY (Simvastatin 40 MG) PO SCH (22:00)
[2019-01-31] MEDS: PRAVACHOL PO SCH (22:58)
[2019-01-31] MEDS: ANTIVERT PO PRN (23:53)
[2019-02-01] MEDS: DUONEB *Not for PRN Use IH SCH ×5 (03:52→20:01)
[2019-02-01] MEDS: SOLU-Medrol IV SCH ×3 (04:10→18:13)
[2019-02-01] MEDS: NACL 0.9% 1000 ML 1,000 ML IV SCH ×3 (04:13→13:49)
[2019-02-01 07:23] LABS: Hematocrit 34.7 % (30.3-42.9); Hemoglobin 11.6 gm/dl (10.1-14.3); Mean Corpuscular HGB Conc 33 % (30-34); Mean Corpuscular Volume 90 fl (79-97); Platelet Count 230 K/mm3 (140-440); Red Blood Count 3.87 M/mm3 (3.65-5.03); Red Cell Distribution Width 14.9 % (13.2-15.2)
[2019-02-01 07:43] LABS: BUN/Creatinine Ratio 20; Blood Urea Nitrogen 14 mg/dL (7-17); Calcium 7.8 mg/dL (8.4-10.2); Hemolysis Index 5
[2019-02-01] MEDS: PERCOCET 5/325 PO PRN (08:47)
[2019-02-01] MEDS: HumaLOG SUB-Q SCH ×4 (08:48→21:12)
[2019-02-01] MEDS: ANTIVERT PO PRN (08:49)
--- NOTE | 2019-02-01 09:22 | Progress Note ---
Assessment and Plan Assessment and plan: --Lactic acidosis; levels trending down ? UTI/acute bronchitis, and DC Zithromax, add Levaquin vigorous IV hydration, sodium bicarbonate, follow cultures --Acute exacerbation of bronchial asthma with acute bronchitis Continue oxygen and titrate O2 sats to within 90% , nebulizers Tapering dose of IV steroids , antibiotic , cough medicine --Acute hypoxemic respiratory failure ; present on admission oxygen titrate O2 sats to more than 90% and supportive care Evaluation for home oxygen --Hypertensive urgency; present on admission Continue antihypertensives. --SIRS:Likely due to noninfectious process Urinalysis pending --Atypical chest pain, rule out ACS Serial cardiac enzymes negative Symptoms resolved , probably secondary to acute bronchitis --History of seizures; present on admission Seizure precautions, antiepileptic medications --DM2;Accu-Chek sliding scale coverage and ADA diet --HLD; continue statin --History of SVT; stable --History of iron deficiency anemia; supportive care --DVT prophylaxis with Lovenox Disposition: Possible discharge in 1-2 days if stable Plan of care is reviewed with the patient and her nurse History Interval history: Patient seen and examined medical records reviewed Patient feels slightly better however lactic acid levels are still elevated and trending down Complaints of generalized weakness Denies chest pain or shortness of breath Vital signs reviewed Hospitalist Physical - Constitutional Vitals: Temp Pulse Resp BP Pulse Ox 97.5 F L 84 17 121/75 99 02/01/19 05:39 02/01/19 05:39 02/01/19 05:39 02/01/19 05:39 02/01/19 05:39 General appearance: Present: no acute distress, well-nourished - EENT Eyes: Present: PERRL, EOM intact - Neck Neck: Present: supple, normal ROM - Respiratory Respiratory effort: normal Respiratory: bilateral: diminished, wheezing, negative: rales, rhonchi - Cardiovascular Rhythm: regular Heart Sounds: Present: S1 & S2 - Extremities Extremities: no ischemia, No edema - Abdominal General gastrointestinal: soft, non-tender, non-distended, normal bowel sounds - Integumentary Integumentary: Present: clear, warm - Psychiatric Psychiatric: appropriate mood/affect, cooperative - Neurologic Neurologic: CNII-XII intact, moves all extremities Results - Labs CBC & Chem 7: 02/01/19 06:52 02/01/19 06:52 Labs: Laboratory Last Values WBC 14.3 K/mm3 (4.5-11.0) H 02/01/19 06:52 RBC 3.87 M/mm3 (3.65-5.03) 02/01/19 06:52 Hgb 11.6 gm/dl (10.1-14.3) 02/01/19 06:52 Hct 34.7 % (30.3-42.9) 02/01/19 06:52 MCV 90 fl (79-97) 02/01/19 06:52 MCH 30 pg (28-32) 02/01/19 06:52 MCHC 33 % (30-34) 02/01/19 06:52 RDW 14.9 % (13.2-15.2) 02/01/19 06:52 Plt Count 230 K/mm3 (140-440) 02/01/19 06:52 Lymph % (Auto) 42.6 % (13.4-35.0) H 01/30/19 17:36 [place] % (Auto) 7.1 % (0.0-7.3) 01/30/19 17:36 Eos % (Auto) 0.2 % (0.0-4.3) 01/30/19 17:36 Baso % (Auto) 0.4 % (0.0-1.8) 01/30/19 17:36 Lymph # 2.4 K/mm3 (1.2-5.4) 01/30/19 17:36 [place] # 0.4 K/mm3 (0.0-0.8) 01/30/19 17:36 Eos # 0.0 K/mm3 (0.0-0.4) 01/30/19 17:36 Baso # 0.0 K/mm3 (0.0-0.1) 01/30/19 17:36 Seg Neutrophils % [employer] 02/01/19 06:52 Seg Neutrophils # 2.8 K/mm3 (1.8-7.7) 01/30/19 17:36 Sodium 138 mmol/L (137-145) 02/01/19 06:52 Potassium 4.2 mmol/L (3.6-5.0) 02/01/19 06:52 Chloride 102.0 mmol/L (98-107) 02/01/19 06:52 Carbon Dioxide 22 mmol/L (22-30) 02/01/19 06:52 18 mmol/L 02/01/19 06:52 BUN 14 mg/dL (7-17) 02/01/19 06:52 0.7 mg/dL (0.7-1.2) 02/01/19 06:52 Estimated GFR > 60 ml/min 02/01/19 06:52 20 % 02/01/19 06:52 Glucose 172 mg/dL (65-100) H 02/01/19 06:52 POC Glucose 158 (70-105) H 02/01/19 07:19 Lactic Acid 5.00 mmol/L (0.7-2.0) H* 02/01/19 06:52 Calcium 7.8 mg/dL (8.4-10.2) L 02/01/19 06:52 Magnesium 2.40 mg/dL (1.7-2.3) H 02/01/19 06:52 0.20 mg/dL (0.1-1.2) 01/31/19 06:12 AST 13 units/L (5-40) 01/31/19 06:12 ALT 9 units/L (7-56) 01/31/19 06:12 65 units/L (35-129) 01/31/19 06:12 < 0.010 ng/mL (0.00-0.029) 01/31/19 06:12 7.5 g/dL (6.3-8.2) 01/31/19 06:12 4.0 g/dL (3.9-5) 01/31/19 06:12 1.1 % 01/31/19 06:12 Straw (Yellow) 01/30/19 01:50 Clear (Clear) 01/30/19 01:50 5.0 (5.0-7.0) 01/30/19 01:50 Ur Specific [place] 1.015 (1.003-1.030) 01/30/19 01:50 <15 mg/dl mg/dL (Negative) 01/30/19 01:50 Neg mg/dL (Negative) 01/30/19 01:50 20 mg/dL (Negative) 01/30/19 01:50 Lg (Negative) 01/30/19 01:50 Neg (Negative) 01/30/19 01:50 Neg (Negative) 01/30/19 01:50 < 2.0 mg/dL (<2.0) 01/30/19 01:50 Ur Leukocyte Esterase Neg (Negative) 01/30/19 01:50 1.0 /HPF (0.0-6.0) 01/30/19 01:50 8.0 /HPF (0.0-6.0) 01/30/19 01:50 U Epithel Cells (Auto) 1.0 /HPF (0-13.0) 01/30/19 01:50 1+ /HPF 01/30/19 01:50 Active Medications - Current Medications Current Medications: Generic Name Dose Route Start Last Admin Trade Name Freq PRN Reason Stop Dose Admin Acetaminophen 650 mg 01/30/19 22:05 Tylenol PO Q4H PRN Pain MILD(1-3)/Fever >100.5/[facility] Albuterol/Ipratropium 1 ampul 01/31/19 00:00 02/01/19 09:09 Duoneb *Not For Prn Use* IH 1 ampul Q4HRT [facility] Administration Amlodipine Besylate 10 mg 01/30/19 22:16 01/31/19 09:33 Norvasc PO 10 mg QDAY [facility] Administration Aspirin 81 mg 01/31/19 10:00 01/31/19 09:33 Baby Aspirin PO 81 mg QDAY [facility] Administration Dextrose 50 ml 01/30/19 22:13 D50w (25gm) Syringe IV PRN PRN Hypoglycemia Divalproex Sodium 3,000 mg 01/31/19 22:00 01/31/19 22:53 Depakote Er PO 3,000 mg HS [facility] Administration Docusate Sodium 100 mg 01/31/19 10:00 01/31/19 23:00 Colace PO 100 mg BID [facility] Administration Enoxaparin Sodium 40 mg 01/31/19 10:00 01/31/19 09:33 Lovenox SUB-Q 40 mg QDAY [facility] Administration Guaifenesin 600 mg 01/30/19 23:00 01/31/19 23:00 Mucinex Er PO 600 mg BID [facility] Administration Hydralazine HCl 10 mg 01/30/19 22:16 Apresoline IV Q4HR PRN Blood Pressure Hydrocodone Bit/Homatropine Methylb 5 ml 01/30/19 22:09 Hydromet PO Q6H PRN Cough Azithromycin 500 mg/ Sodium 250 mls @ 250 mls/hr 01/31/19 10:00 01/31/19 09 :40 Chloride IV 02/05/19 09:59 250 mls/hr Q24HR [facility] Administration Sodium Chloride 1,000 mls @ 125 mls/hr 01/31/19 19:00 02/01/19 04:19 Nacl 0.9% 1000 Ml IV 100 mls/hr DIRECT [facility] Administration Sodium Chloride 250 mls @ 999 mls/hr 02/01/19 09:17 Nacl 0.9% 250ml IV 02/01/19 09:32 ONCE ONE Levofloxacin/Dextrose 750 mg in 150 mls @ 100 mls/hr 02/01/19 10:00 Levaquin 750mg/150ml IV Q24HR [facility] Protocol Insulin Human Lispro 0 unit 01/31/19 07:30 02/01/19 08:48 Humalog SUB-Q 2 unit ACHS [facility] Administration Protocol Meclizine HCl 25 mg 01/31/19 00:20 02/01/19 08:49 Antivert PO 25 mg Q8H PRN Administration Vertigo Methylprednisolone Sodium Succinate 80 mg 02/01/19 02:30 02/01/19 04:10 Solu-Medrol IV 80 mg Q8H [facility] Administration Ondansetron HCl 4 mg 01/30/19 22:05 01/31/19 01:56 Zofran IV 4 mg Q8H PRN Administration Nausea And Vomiting Oxycodone/Acetaminophen 1 tab 01/30/19 22:05 02/01/19 08:47 Percocet 5/325 PO 1 tab Q4H PRN Administration Pain, Moderate (4-6) Pravastatin Sodium 80 mg 01/31/19 22:00 01/31/19 22:58 Pravachol PO 80 mg QHS [facility] Administration Sodium Chloride 10 ml 01/31/19 10:00 01/31/19 23:55 Sodium Chloride Flush Syringe 10 Ml IV 10 ml BID [facility] Administration Sodium Chloride 10 ml 01/30/19 22:05 Sodium Chloride Flush Syringe 10 Ml IV PRN PRN LINE FLUSH
[2019-02-01] MEDS ORDERED: NACL 0.9% 250ML 250 ML IV ONE (10:00)
[2019-02-01] MEDS: COLACE PO SCH ×2 (10:33→21:03)
[2019-02-01] MEDS: BABY ASPIRIN PO SCH (10:33)
[2019-02-01] MEDS: MUCINEX ER PO SCH ×2 (10:34→21:03)
[2019-02-01] MEDS: NORVASC PO SCH (10:34)
[2019-02-01] MEDS: LOVENOX SUB-Q SCH (10:34)
[2019-02-01] MEDS: LEVAQUIN 750MG/150ML 750 MG/150 ML BAG IV SCH (10:43)
[2019-02-01] MEDS: SODIUM CHLORIDE FLUSH SYRINGE 10 ML IV SCH ×2 (10:47→21:07)
[2019-02-01 11:14] LABS: Basophils % (Manual) 0 % (0.0-1.8); Eosinophils % (Manual) 0 % (0.0-4.3); Platelet Estimate Consistent w Auto; RBC Morphology Normal; Total Cells Counted 100
[2019-02-01] MEDS: SODIUM BICARBONATE IV SCH ×2 (15:05→21:20)
[2019-02-01] MEDS: NACL 0.9% IV SCH ×2 (15:05→21:20)
[2019-02-01] MEDS: HYDROMET PO PRN (15:56)
[2019-02-01] MEDS: PRAVACHOL PO SCH (21:03)
[2019-02-02] MEDS: DUONEB *Not for PRN Use IH SCH ×6 (00:08→19:52)
[2019-02-02] MEDS: ANTIVERT PO PRN (00:41)
[2019-02-02] MEDS: PERCOCET 5/325 PO PRN ×2 (00:41→20:42)
[2019-02-02] MEDS: SOLU-Medrol IV SCH ×3 (04:36→17:31)
[2019-02-02] MEDS: SODIUM BICARBONATE IV SCH ×2 (04:52→14:19)
[2019-02-02] MEDS: NACL 0.9% IV SCH ×2 (04:52→14:19)
[2019-02-02 07:35] LABS: BUN/Creatinine Ratio 23; Blood Urea Nitrogen 14 mg/dL (7-17); Calcium 7.4 mg/dL (8.4-10.2); Hemolysis Index 6
[2019-02-02] MEDS ORDERED: LASIX IV NR (08:03)
--- NOTE | 2019-02-02 09:09 | Progress Note ---
Assessment and Plan Assessment and plan: --Lactic acidosis; levels trending down ? UTI/acute bronchitis, and DC Zithromax, add Levaquin vigorous IV hydration, sodium bicarbonate, follow cultures --Acute exacerbation of bronchial asthma with acute bronchitis Continue oxygen and titrate O2 sats to within 90% , nebulizers Tapering dose of IV steroids , antibiotic , cough medicine --Acute hypoxemic respiratory failure ; present on admission oxygen titrate O2 sats to more than 90% and supportive care Evaluation for home oxygen --Hypertensive urgency; present on admission Continue antihypertensives. --SIRS:Likely due to noninfectious process Urinalysis pending --Atypical chest pain, rule out ACS Serial cardiac enzymes negative Symptoms resolved , probably secondary to acute bronchitis --History of seizures; present on admission Seizure precautions, antiepileptic medications --DM2;Accu-Chek sliding scale coverage and ADA diet --HLD; continue statin --History of SVT; stable --History of iron deficiency anemia; supportive care --DVT prophylaxis with Lovenox Disposition: Possible discharge in 1-2 days if stable Plan of care is reviewed with the patient and her nurse History Interval history: Patient seen and examined medical records reviewed Complains of some cough Lactic acid level significantly improved Alert awake oriented Vital signs stable Hospitalist Physical - Constitutional Vitals: Temp Pulse Resp BP Pulse Ox 96.7 F L 91 H 18 142/82 100 02/01/19 22:30 02/02/19 05:00 02/02/19 05:00 02/01/19 22:30 02/01/19 22:30 General appearance: Present: no acute distress, well-nourished - EENT Eyes: Present: PERRL, EOM intact - Neck Neck: Present: supple, normal ROM - Respiratory Respiratory effort: normal Respiratory: bilateral: diminished, wheezing, negative: rales, rhonchi - Cardiovascular Rhythm: regular Heart Sounds: Present: S1 & S2 - Extremities Extremities: no ischemia, No edema - Abdominal General gastrointestinal: soft, non-tender, non-distended, normal bowel sounds - Integumentary Integumentary: Present: clear, warm - Psychiatric Psychiatric: appropriate mood/affect, cooperative - Neurologic Neurologic: CNII-XII intact Results - Labs CBC & Chem 7: 02/01/19 06:52 02/02/19 06:55 Labs: Laboratory Last Values WBC 14.3 K/mm3 (4.5-11.0) H 02/01/19 06:52 RBC 3.87 M/mm3 (3.65-5.03) 02/01/19 06:52 Hgb 11.6 gm/dl (10.1-14.3) 02/01/19 06:52 Hct 34.7 % (30.3-42.9) 02/01/19 06:52 MCV 90 fl (79-97) 02/01/19 06:52 MCH 30 pg (28-32) 02/01/19 06:52 MCHC 33 % (30-34) 02/01/19 06:52 RDW 14.9 % (13.2-15.2) 02/01/19 06:52 Plt Count 230 K/mm3 (140-440) 02/01/19 06:52 Lymph % (Auto) 42.6 % (13.4-35.0) H 01/30/19 17:36 Imperial % (Auto) 7.1 % (0.0-7.3) 01/30/19 17:36 Eos % (Auto) 0.2 % (0.0-4.3) 01/30/19 17:36 Baso % (Auto) 0.4 % (0.0-1.8) 01/30/19 17:36 Lymph # 2.4 K/mm3 (1.2-5.4) 01/30/19 17:36 Imperial # 0.4 K/mm3 (0.0-0.8) 01/30/19 17:36 Eos # 0.0 K/mm3 (0.0-0.4) 01/30/19 17:36 Baso # 0.0 K/mm3 (0.0-0.1) 01/30/19 17:36 Add Manual Diff Complete 02/01/19 06:52 Total Counted 100 02/01/19 06:52 Seg Neutrophils % [employer] 02/01/19 06:52 Seg Neuts % (Manual) 93.0 % (40.0-70.0) H 02/01/19 06:52 0 % 02/01/19 06:52 6.0 % (13.4-35.0) L 02/01/19 06:52 Reactive Lymphs % (Man) 0 % 02/01/19 06:52 1.0 % (0.0-7.3) 02/01/19 06:52 0 % (0.0-4.3) 02/01/19 06:52 0 % (0.0-1.8) 02/01/19 06:52 0 % 02/01/19 06:52 0 % 02/01/19 06:52 0 % 02/01/19 06:52 0 % 02/01/19 06:52 Nucleated RBC % Not Reportable 02/01/19 06:52 Seg Neutrophils # 2.8 K/mm3 (1.8-7.7) 01/30/19 17:36 Seg Neutrophils # Man 13.3 K/mm3 (1.8-7.7) H 02/01/19 06:52 Band Neutrophils # 0.0 K/mm3 02/01/19 06:52 0.9 K/mm3 (1.2-5.4) L 02/01/19 06:52 Abs React Lymphs (Man) 0.0 K/mm3 02/01/19 06:52 0.1 K/mm3 (0.0-0.8) 02/01/19 06:52 0.0 K/mm3 (0.0-0.4) 02/01/19 06:52 0.0 K/mm3 (0.0-0.1) 02/01/19 06:52 0.0 K/mm3 02/01/19 06:52 0.0 K/mm3 02/01/19 06:52 0.0 K/mm3 02/01/19 06:52 Blast Cells # 0.0 K/mm3 02/01/19 06:52 WBC Morphology Not Reportable 02/01/19 06:52 Hypersegmented Neuts Not Reportable 02/01/19 06:52 Hyposegmented Neuts Not Reportable 02/01/19 06:52 Hypogranular Neuts Not Reportable 02/01/19 06:52 Not Reportable 02/01/19 06:52 Not Reportable 02/01/19 06:52 Not Reportable 02/01/19 06:52 Not Reportable 02/01/19 06:52 Not Reportable 02/01/19 06:52 Not Reportable 02/01/19 06:52 Consistent w auto 02/01/19 06:52 Not Reportable 02/01/19 06:52 Plt Clumps, EDTA Not Reportable 02/01/19 06:52 Not Reportable 02/01/19 06:52 Not Reportable 02/01/19 06:52 Not Reportable 02/01/19 06:52 Plt Morphology Comment Not Reportable 02/01/19 06:52 RBC Morphology Normal 02/01/19 06:52 Dimorphic RBCs Not Reportable 02/01/19 06:52 Not Reportable 02/01/19 06:52 Not Reportable 02/01/19 06:52 Not Reportable 02/01/19 06:52 Not Reportable 02/01/19 06:52 Not Reportable 02/01/19 06:52 Not Reportable 02/01/19 06:52 Not Reportable 02/01/19 06:52 Not Reportable 02/01/19 06:52 Not Reportable 02/01/19 06:52 Not Reportable 02/01/19 06:52 Not Reportable 02/01/19 06:52 Not Reportable 02/01/19 06:52 Not Reportable 02/01/19 06:52 Not Reportable 02/01/19 06:52 Not Reportable 02/01/19 06:52 Not Reportable 02/01/19 06:52 Not Reportable 02/01/19 06:52 Not Reportable 02/01/19 06:52 Not Reportable 02/01/19 06:52 Acanthocytes (Spur) Not Reportable 02/01/19 06:52 Rouleaux Not Reportable 02/01/19 06:52 Not Reportable 02/01/19 06:52 Not Reportable 02/01/19 06:52 Not Reportable 02/01/19 06:52 Not Reportable 02/01/19 06:52 Hem Pathologist Commnt No 02/01/19 06:52 Sodium 142 mmol/L (137-145) 02/02/19 06:55 Potassium 4.2 mmol/L (3.6-5.0) 02/02/19 06:55 Chloride 104.5 mmol/L (98-107) 02/02/19 06:55 Carbon Dioxide 25 mmol/L (22-30) 02/02/19 06:55 17 mmol/L 02/02/19 06:55 BUN 14 mg/dL (7-17) 02/02/19 06:55 0.6 mg/dL (0.7-1.2) L 02/02/19 06:55 Estimated GFR > 60 ml/min 02/02/19 06:55 23 % 02/02/19 06:55 Glucose 153 mg/dL (65-100) H 02/02/19 06:55 POC Glucose 141 (70-105) H 02/02/19 07:37 Lactic Acid 4.00 mmol/L (0.7-2.0) H* 02/02/19 06:55 Calcium 7.4 mg/dL (8.4-10.2) L 02/02/19 06:55 Magnesium 2.40 mg/dL (1.7-2.3) H 02/01/19 06:52 0.20 mg/dL (0.1-1.2) 01/31/19 06:12 AST 13 units/L (5-40) 01/31/19 06:12 ALT 9 units/L (7-56) 01/31/19 06:12 65 units/L (35-129) 01/31/19 06:12 < 0.010 ng/mL (0.00-0.029) 01/31/19 06:12 7.5 g/dL (6.3-8.2) 01/31/19 06:12 4.0 g/dL (3.9-5) 01/31/19 06:12 1.1 % 01/31/19 06:12 Straw (Yellow) 01/30/19 01:50 Clear (Clear) 01/30/19 01:50 5.0 (5.0-7.0) 01/30/19 01:50 Ur Specific Waterproof 1.015 (1.003-1.030) 01/30/19 01:50 <15 mg/dl mg/dL (Negative) 01/30/19 01:50 Neg mg/dL (Negative) 01/30/19 01:50 20 mg/dL (Negative) 01/30/19 01:50 Lg (Negative) 01/30/19 01:50 Neg (Negative) 01/30/19 01:50 Neg (Negative) 01/30/19 01:50 < 2.0 mg/dL (<2.0) 01/30/19 01:50 Ur Leukocyte Esterase Neg (Negative) 01/30/19 01:50 1.0 /HPF (0.0-6.0) 01/30/19 01:50 8.0 /HPF (0.0-6.0) 01/30/19 01:50 U Epithel Cells (Auto) 1.0 /HPF (0-13.0) 01/30/19 01:50 1+ /HPF 01/30/19 01:50 Active Medications - Current Medications Current Medications: Generic Name Dose Route Start Last Admin Trade Name Freq PRN Reason Stop Dose Admin Acetaminophen 650 mg 01/30/19 22:05 Tylenol PO Q4H PRN Pain MILD(1-3)/Fever >100.5/[facility]I Albuterol/Ipratropium 1 ampul 01/31/19 00:00 02/02/19 08:48 Duoneb *Not For Prn Use* IH 1 ampul Q4HRT LENI Administration Amlodipine Besylate 10 mg 01/30/19 22:16 02/01/19 10:34 Norvasc PO 10 mg QDAY LENI Administration Aspirin 81 mg 01/31/19 10:00 02/01/19 10:33 Baby Aspirin PO 81 mg QDAY LENI Administration Benzonatate 100 mg 02/02/19 14:00 Tessalon Perles PO Q8HR LENI Dextrose 50 ml 01/30/19 22:13 D50w (25gm) Syringe IV PRN PRN Hypoglycemia Divalproex Sodium 3,000 mg 01/31/19 22:00 02/01/19 21:03 Depakote Er PO 3,000 mg HS LENI Administration Docusate Sodium 100 mg 01/31/19 10:00 02/01/19 21:03 Colace PO 100 mg BID LENI Administration Enoxaparin Sodium 40 mg 01/31/19 10:00 02/01/19 10:34 Lovenox SUB-Q 40 mg QDAY LENI Administration Furosemide 40 mg 02/02/19 08:03 Lasix IV 02/02/19 10:00 ONCE NR Guaifenesin 600 mg 01/30/19 23:00 02/01/19 21:03 Mucinex Er PO 600 mg BID LENI Administration Hydralazine HCl 10 mg 01/30/19 22:16 Apresoline IV Q4HR PRN Blood Pressure Hydrocodone Bit/Homatropine Methylb 5 ml 05/09/19 22:09 02/01/19 15:56 Hydromet PO 5 ml Q6H PRN Administration Cough Levofloxacin/Dextrose 750 mg in 150 mls @ 100 mls/hr 02/01/19 10:00 02/01/19 10:43 Levaquin 750mg/150ml IV 100 mls/hr Q24HR LENI Administration Protocol Sodium Bicarbonate 40 meq/ 1,040 mls @ 75 mls/hr 02/01/19 14:42 02/02/19 04:52 Sodium Chloride IV 150 mls/hr DIRECT LENI Administration Insulin Human Lispro 0 unit 01/31/19 07:30 02/01/19 21:12 Humalog SUB-Q 2 unit ACHS LENI Administration Protocol Meclizine HCl 25 mg 01/31/19 00:20 02/02/19 00:41 Antivert PO 25 mg Q8H PRN Administration Vertigo Methylprednisolone Sodium Succinate 80 mg 02/01/19 02:30 02/02/19 04:36 Solu-Medrol IV 80 mg Q8H LENI Administration Ondansetron HCl 4 mg 01/30/19 22:05 01/31/19 01:56 Zofran IV 4 mg Q8H PRN Administration Nausea And Vomiting Oxycodone/Acetaminophen 1 tab 01/30/19 22:05 02/02/19 00:41 Percocet 5/325 PO 1 tab Q4H PRN Administration Pain, Moderate (4-6) Pravastatin Sodium 80 mg 01/31/19 22:00 02/01/19 21:03 Pravachol PO 80 mg QHS LENI Administration Sodium Chloride 10 ml 01/31/19 10:00 02/01/19 21:07 Sodium Chloride Flush Syringe 10 Ml IV 10 ml BID LENI Administration Sodium Chloride 10 ml 01/30/19 22:05 Sodium Chloride Flush Syringe 10 Ml IV PRN PRN LINE FLUSH
[2019-02-02] MEDS: MUCINEX ER PO SCH ×2 (09:33→20:59)
[2019-02-02] MEDS: LEVAQUIN 750MG/150ML 750 MG/150 ML BAG IV SCH (09:33)
[2019-02-02] MEDS: NORVASC PO SCH (09:33)
[2019-02-02] MEDS: LOVENOX SUB-Q SCH (09:34)
[2019-02-02] MEDS: COLACE PO SCH ×2 (09:34→21:00)
[2019-02-02] MEDS: BABY ASPIRIN PO SCH (09:34)
[2019-02-02] MEDS: HumaLOG SUB-Q SCH ×4 (09:35→21:57)
[2019-02-02] MEDS: SODIUM CHLORIDE FLUSH SYRINGE 10 ML IV SCH ×2 (10:32→22:02)
[2019-02-02] MEDS: TESSALON PERLES PO SCH ×2 (13:40→20:59)
[2019-02-02] MEDS: HYDROMET PO PRN (20:42)
[2019-02-02] MEDS ORDERED: MILK OF MAGNESIA PO PRN (21:22)
[2019-02-02] MEDS: PRAVACHOL PO SCH (21:57)
[2019-02-03] MEDS: DUONEB *Not for PRN Use IH SCH ×4 (00:22→13:28)
[2019-02-03] MEDS: SOLU-Medrol IV SCH ×2 (03:03→10:22)
[2019-02-03] MEDS: SODIUM BICARBONATE IV SCH (05:47)
[2019-02-03] MEDS: NACL 0.9% IV SCH (05:47)
[2019-02-03] MEDS: TESSALON PERLES PO SCH ×2 (05:50→13:40)
[2019-02-03] MEDS: HumaLOG SUB-Q SCH ×2 (08:52→12:27)
[2019-02-03] MEDS: LEVAQUIN 750MG/150ML 750 MG/150 ML BAG IV SCH (10:18)
[2019-02-03] MEDS: MUCINEX ER PO SCH (10:19)
[2019-02-03] MEDS: NORVASC PO SCH (10:19)
[2019-02-03] MEDS: BABY ASPIRIN PO SCH (10:19)
[2019-02-03] MEDS: COLACE PO SCH (10:19)
[2019-02-03] MEDS: LOVENOX SUB-Q SCH (10:20)
[2019-02-03] MEDS: SODIUM CHLORIDE FLUSH SYRINGE 10 ML IV SCH (10:22)
--- NOTE | 2019-02-03 12:03 | Discharge Summary ---
Providers - Providers Date of Admission: 01/30/19 21:49 Date of discharge: 02/03/19 Attending physician: DENIZ LUIS [facility] Reason for admission: Worsening shortness of breath Condition: Stable Pertinent studies: CXR : no acute abnormality Hospital course: 43 year old -[place] female with history of asthma, epilepsy and hypertension was admitted throug ED with 1 day history of worsening shortness of breath. She had associated dry cough, chest pain, headaches, nausea .without vomiting and lightheadedness. noted to have lactic acidosis and hypertensive urgency as well as hypoxic resp failure. Managed appropriately and symptoms completely resolved. Today patient is comfortable,no new complaints,vital signs stable Physical exam unremarkable. Stable at discharge Discharge Diagnosis: --Lactic acidosis; levels trending down ? UTI/acute bronchitis, and DC Zithromax, add Levaquin vigorous IV hydration, sodium bicarbonate, follow cultures --Acute exacerbation of bronchial asthma with acute bronchitis Continue oxygen and titrate O2 sats to within 90% , nebulizers Tapering dose of IV steroids , antibiotic , cough medicine --Acute hypoxemic respiratory failure ; present on admission oxygen titrate O2 sats to more than 90% and supportive care Evaluation for home oxygen --Hypertensive urgency; present on admission Continue antihypertensives. --SIRS:Likely due to noninfectious process Urinalysis pending --Atypical chest pain, rule out ACS Serial cardiac enzymes negative Symptoms resolved , probably secondary to acute bronchitis --History of seizures; present on admission Seizure precautions, antiepileptic medications --DM2;Accu-Chek sliding scale coverage and ADA diet --HLD; continue statin --History of SVT; stable --History of iron deficiency anemia; supportive care --DVT prophylaxis with Lovenox Stable at discharge Disposition: DC-01 TO HOME OR SELFCARE Time spent for discharge: 32 min Core Measure Documentation - Palliative Care Palliative Care/ Comfort Measures: Not Applicable - Core Measures Any of the following diagnoses?: none Exam - Constitutional Vitals: Temp Pulse Resp BP Pulse Ox 98.1 F 77 18 128/76 100 02/03/19 04:12 02/03/19 10:19 02/03/19 08:29 02/03/19 10:02/03/19 08:29 General appearance: Present: no acute distress, well-nourished - EENT Eyes: Present: PERRL, EOM intact - Neck Neck: Present: supple, normal ROM - Respiratory Respiratory effort: normal Respiratory: bilateral: diminished, negative: rales, rhonchi, wheezing - Cardiovascular Rhythm: regular Heart Sounds: Present: S1 & S2 - Extremities Extremities: no ischemia, pulses intact - Abdominal General gastrointestinal: Present: soft, non-tender, non-distended, normal bowel sounds - Integumentary Integumentary: Present: clear, warm - Musculoskeletal Musculoskeletal: strength equal bilaterally, generalized weakness - Psychiatric Psychiatric: appropriate mood/affect, cooperative - Neurologic Neurologic: CNII-XII intact, moves all extremities Plan Activity: advance as tolerated Diet: diabetic Additional Instructions: Advise one day work excuse on 02/04/2019. History of chest pain or shortness of breath contact M.D. or go to emergency room Follow up with: MIRTA DONAHUELANDENBERG MD BELINDA [Primary Care Provider] - 7 Days Forms: Work/School Release Form Prescriptions: levoFLOXacin [Levaquin TAB] 750 mg PO DAILY #5 tablet Prednisone [predniSONE 10 mg (6-Day Pack, 21 Tabs)] 10 mg PO .TAPER #1 tab.ds.pk Benzonatate [Tessalon Perles] 100 mg PO Q8HR #15 capsule ALBUTEROL Inhaler(NF) [VENTOLIN Inhaler(NF)] 1 puff IH QID PRN #1 inha PRN Reason: Shortness Of Breath
[2019-02-03 14:07] VITALS: BP 135/84
[2019-02-03] MEDS ORDERED: SOLU-Medrol IV SCH ×2 (22:00)
[2019-02-04] MEDS ORDERED: LEVAQUIN PO SCH (10:00)
== END 2019-02-03 14:50 | disposition home or self-care (01) | DRG 189 ==
LOC: ED 17:16 → 3A 21:49
PROVIDERS: ADMIT Internal Medicine; ATTEND Internal Medicine
DX: J96.01 Acute respiratory failure with hypoxia (principal); J45.901 Unspecified asthma with (acute) exacerbation; R65.10 Systemic inflammatory response syndrome (SIRS) of non-infectious origin without acute organ dysfunction; E87.2 Acidosis; N39.0 Urinary tract infection, site not specified; I16.0 Hypertensive urgency; J20.9 Acute bronchitis, unspecified; E11.9 Type 2 diabetes mellitus without complications; E78.5 Hyperlipidemia, unspecified; G40.909 Epilepsy, unspecified, not intractable, without status epilepticus; M19.90 Unspecified osteoarthritis, unspecified site; G43.909 Migraine, unspecified, not intractable, without status migrainosus; Z98.51 Tubal ligation status; Z87.891 Personal history of nicotine dependence; Z82.49 Family history of ischemic heart disease and other diseases of the circulatory system; Z83.3 Family history of diabetes mellitus; Z88.0 Allergy status to penicillin; Z79.899 Other long term (current) drug therapy; Z79.82 Long term (current) use of aspirin
CPT/HCPCS: 36415; 71045; 80048; 80053; 81001; 82140; 82962; 83735; 84484; 85007; 85025; 87040; 87086; 87116; 94640; 94760; 96365; 99285; G0378; A9270-GY; J0456; J1650; J1815; J1940; J1956; J2405; J2930; J3475; J7030; J7050; J7512; Q0162

== ENCOUNTER 2019-04-08 15:48 | Emergency (ER) | payer BC ==
--- NOTE | 2019-04-08 16:01 | Event Note ---
ED Screening Note ED Screening Note: WEAK NAUSEA DM HTN HPLD FAM HX CAD BS 100 VIA EMS This initial assessment/diagnostic orders/clinical plan/treatment(s) is/are subject to change based on patients health status, clinical progression and re- assessment by fellow clinical providers in the ED. Further treatment and workup at subsequent clinical providers discretion. Patient/guardian urged not to elope from the ED as their condition may be serious if not clinically assessed and managed. Initial orders include: UA BG 12 LEAD LABS
[2019-04-08 16:42] LABS: Basophils % (Auto) 0.7 % (0.0-1.8); Eosinophils % (Auto) 0.5 % (0.0-4.3); Hemoglobin 12.5 gm/dl (10.1-14.3); Lymphocytes # (Auto) 2.1 K/mm3 (1.2-5.4); Lymphocytes % (Auto) 40.1 % (13.4-35.0); Mean Corpuscular HGB Conc 34 % (30-34); Mean Corpuscular Volume 88 fl (79-97); Monocytes # (Auto) 0.3 K/mm3 (0.0-0.8); Monocytes % (Auto) 5.1 % (0.0-7.3); Platelet Count 440 K/mm3 (140-440); Red Cell Distribution Width 14.8 % (13.2-15.2)
[2019-04-08 17:01] LABS: Alanine Aminotransferase 5 units/L (7-56); Albumin 4.2 g/dL (3.9-5); BUN/Creatinine Ratio 14; Blood Urea Nitrogen 10 mg/dL (7-17); Calcium 8.9 mg/dL (8.4-10.2); Hemolysis Index 11
[2019-04-08] MEDS ORDERED: ANTIVERT PO ONE (18:14)
[2019-04-08] MEDS ORDERED: ZOFRAN IV ONE (18:14)
[2019-04-08] MEDS ORDERED: NACL 0.9% 1000 ML 1,000 ML IV ONE (18:14)
[2019-04-08] MEDS ORDERED: TORADOL IV ONE (18:17)
--- NOTE | 2019-04-08 18:44 | Emergency Department Report ---
ED Dizziness HPI - General Chief Complaint: Dizziness Stated Complaint: DIZZINESS Time Seen by Provider: 04/08/19 15:58 Source: patient, old records reviewed Mode of arrival: Wheelchair Limitations: No Limitations - History of Present Illness Initial Comments: 44-year-old female with past medical history asthma, diabetes, headaches, hypertension, seizures, anemia, SVT, and tubal ligation presents to Hospital complains of dizziness and headache intermittently since the past 3 days. Symptoms worsened while at her physical therapy appointment for her right knee. Patient states her gait has also felt unsteady. She feels more dizzy when she looks to the right side with associated nausea but she has not been able to vomit. Patient complains of a 10/10 frontal headache as well. Patient has similar presentations and was seen by me in the ED in September of this year. She failed ED treatment and was subsequently admitted to the hospital. During admission she had a negative brain MRI. 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 Patient is currently on Depakote for seizures. She reports she is currently on her menstrual cycle. She took one dose of meclizine on Sunday but has not taking any additional doses. - Related Data Home Medications Medication Instructions Recorded Confirmed Last Taken Albuterol Sulfate [Ventolin HFA] 2 puff INHALATION Q4HR PRN 08/29/13 10/17/18 Unknown Amlodipine Besylate [Norvasc] 5 mg PO QDAY 03/27/18 10/17/18 09/06/18 Divalproex Sodium [Depakote ER] 3,000 mg PO HS 03/27/18 10/18/18 09/06/18 Previous Rx's Medication Instructions Recorded Last Taken Type Famotidine [Pepcid] 20 mg PO BID #60 tablet 03/28/18 09/06/18 Rx Cyclobenzaprine [Flexeril 10 MG 10 mg PO TID PRN #12 tablet 08/07/18 09/04/18 Rx TAB] traMADol [Ultram 50 MG tab] 50 mg PO Q6HR PRN #12 tablet 08/07/18 09/06/18 Rx Aspirin [Aspirin BABY CHEW TAB] 81 mg PO QDAY #30 tab.chew 09/08/18 Unknown Rx Simvastatin [Zocor TAB] 40 mg PO QHS #30 tablet 09/08/18 Unknown Rx Meclizine [Antivert] 25 mg PO Q8H PRN #30 tablet 10/19/18 Unknown Rx Prednisone [predniSONE 10 mg 10 mg PO .TAPER #1 tab.ds.pk 01/30/19 Unknown Rx (6-Day Pack, 21 Tabs)] ALBUTEROL Inhaler(NF) [VENTOLIN 1 puff IH QID PRN #1 inha 02/03/19 Unknown Rx Inhaler(NF)] Benzonatate [Tessalon Perles] 100 mg PO Q8HR #15 capsule 02/03/19 Unknown Rx levoFLOXacin [Levaquin TAB] 750 mg PO DAILY #5 tablet 02/03/19 Unknown Rx HYDROcodone/APAP 5-325 [Morral 1 each PO Q6HR PRN #15 tablet 04/09/19 Unknown Rx 5/325] Ibuprofen [Motrin 600 MG tab] 600 mg PO Q8H PRN #30 tablet 04/09/19 Unknown Rx Meclizine [Antivert] 25 mg PO TID PRN #30 tablet 04/09/19 Unknown Rx Allergies Allergy/AdvReac Type Severity Reaction Status Date / Time Penicillins Allergy Rash Verified 04/08/19 15:53 Tomato Allergy Hives Uncoded 07/21/16 22:52 ED Review of Systems ROS: Stated complaint: DIZZINESS Other details as noted in HPI Comment: All other systems reviewed and negative ED Past Medical Hx - Past Medical History Hx Hypertension: Yes Hx Heart Attack/AMI: No Hx Congestive Heart Failure: No Hx Diabetes: Yes Hx Deep Vein Thrombosis: No Hx Pulmonary Embolism: No Hx Liver Disease: No Hx Arthritis: Yes Hx Headaches / Migraines: Yes Hx Seizures: Yes Hx Asthma: Yes Hx COPD: No Hx Tuberculosis: No Hx Dementia: No Hx HIV: No Additional medical history: anemia, svt, endometriosis, BOILS - Surgical History Hx Coronary Stent: No Hx Pacemaker: No Hx Internal Defibrillator: No Additional Surgical History: hernia, tubal ligation, right knee surgery, heart ablation. right shoulder dislocation - Social History Smoking Status: Never Smoker Substance Use Type: None - Medications Home Medications: Home Medications Medication Instructions Recorded Confirmed Last Taken Type Albuterol Sulfate [Ventolin HFA] 2 puff INHALATION Q4HR PRN 08/29/13 10/17/18 Unknown History Amlodipine Besylate [Norvasc] 5 mg PO QDAY 0710/17/18 09/06/18 History Divalproex Sodium [Depakote ER] 3,000 mg PO HS 03/27/18 10/18/18 09/06/18 History Famotidine [Pepcid] 20 mg PO BID #60 tablet 03/28/18 10/17/18 09/06/18 Rx Cyclobenzaprine [Flexeril 10 MG 10 mg PO TID PRN #12 tablet 08/07/18 10/17/18 09/04/18 Rx TAB] traMADol [Ultram 50 MG tab] 50 mg PO Q6HR PRN #12 tablet 08/07/18 10/17/18 09/06/18 Rx Aspirin [Aspirin BABY CHEW TAB] 81 mg PO QDAY #30 tab.chew 09/08/18 10/17/18 Unknown Rx Simvastatin [Zocor TAB] 40 mg PO QHS #30 tablet 09/08/18 10/17/18 Unknown Rx Meclizine [Antivert] 25 mg PO Q8H PRN #30 tablet 10/19/18 Unknown Rx Prednisone [predniSONE 10 mg 10 mg PO .TAPER #1 tab.ds.pk 01/30/19 Unknown Rx (6-Day Pack, 21 Tabs)] ALBUTEROL Inhaler(NF) [VENTOLIN 1 puff IH QID PRN #1 inha 02/03/19 Unknown Rx Inhaler(NF)] Benzonatate [Tessalon Perles] 100 mg PO Q8HR #15 capsule 02/03/19 Unknown Rx levoFLOXacin [Levaquin TAB] 750 mg PO DAILY #5 tablet 02/03/19 Unknown Rx HYDROcodone/APAP 5-325 [Morral 1 each PO Q6HR PRN #15 tablet 04/09/19 Unknown Rx 5/325] Ibuprofen [Motrin 600 MG tab] 600 mg PO Q8H PRN #30 tablet 04/09/19 Unknown Rx Meclizine [Antivert] 25 mg PO TID PRN #30 tablet 04/09/19 Unknown Rx ED Physical Exam - General Limitations: No Limitations - Other Other exam information: General: No limitations, patient is alert in no acute distress Head exam: Atraumatic, normocephalic Eyes exam: Normal appearance, pupils equal reactive to light, extraocular movements intact. Patient is hesitant to look to the right side because it worsens her vertigo is also hesitant to move her head ENT: Moist mucous membrane, normal oropharynx Neck exam: Normal inspection, full range of motion, no meningismus nontender Respiratory exam: Clear to auscultation bilateral, no wheezes, rales, crackles Cardiovascular: Normal rate and rhythm, normal heart sounds Abdomen: Soft, nondistended, and nontender, with normal bowel sounds, no rebound, or guarding Extremity: Full range of motion normal inspection no deformity Back: Normal Inspection, full range of motion, no tenderness Neurologic: Alert, oriented x3, cranial nerves intact, no motor or sensory deficit him a [id number] function intact Psychiatric: normal affect, normal mood Skin: Warm, dry, intact ED Course Vital Signs 04/08/19 15:57 Temperature 98.0 F Pulse Rate 84 Respiratory 18 Rate Blood Pressure 162/92 O2 Sat by Pulse 99 Oximetry - Reevaluation(s) Reevaluation #1: 04/08/19 20:31 Patient received Toradol, meclizine, and normal saline. She states her headache has improved. She is resting afraid to move her head at this time. CT head still pending. ED Medical Decision Making - Lab Data Result diagrams: 04/08/19 16:21 04/08/19 16:21 Lab Results 04/08/19 04/08/19 04/08/19 Range/Units 16:21 16:21 16:21 WBC 5.2 (4.5-11.0) K/mm3 RBC 4.20 (3.65-5.03) M/mm3 Hgb 12.5 (10.1-14.3) gm/dl Hct 37.0 (30.3-42.9) % MCV 88 (79-97) fl MCH 30 (28-32) pg MCHC 34 (30-34) % RDW 14.8 (13.2-15.2) % Plt Count 440 (140-440) K/mm3 Lymph % (Auto) 40.1 H (13.4-35.0) % [place] % (Auto) 5.1 (0.0-7.3) % Eos % (Auto) 0.5 (0.0-4.3) % Baso % (Auto) 0.7 (0.0-1.8) % Lymph # 2.1 (1.2-5.4) K/mm3 [place] # 0.3 (0.0-0.8) K/mm3 Eos # 0.0 (0.0-0.4) K/mm3 Baso # 0.0 (0.0-0.1) K/mm3 Seg Neutrophils % 53.6 (40.0-70.0) % Seg Neutrophils # 2.8 (1.8-7.7) K/mm3 Sodium 141 (137-145) mmol/L Potassium 3.7 (3.6-5.0) mmol/L Chloride 102.2 (98-107) mmol/L Carbon Dioxide 28 (22-30) mmol/L Anion Gap 15 mmol/L BUN 10 (7-17) mg/dL Creatinine 0.7 (0.7-1.2) mg/dL Estimated GFR > 60 ml/min BUN/Creatinine Ratio 14 % Glucose 90 (65-100) mg/dL Calcium 8.9 (8.4-10.2) mg/dL Total Bilirubin 0.20 (0.1-1.2) mg/dL AST 10 (5-40) units/L ALT 5 L (7-56) units/L Alkaline Phosphatase 71 (35-129) units/L Troponin T < 0.010 (0.00-0.029) ng/mL Total Protein 7.4 (6.3-8.2) g/dL Albumin 4.2 (3.9-5) g/dL Albumin/Globulin Ratio 1.3 % Lipase 20 (13-60) units/L HCG, Qual (Negative) Valproic Acid (50-100) ug/mL 04/08/19 04/08/19 Range/Units 19:16 19:16 WBC (4.5-11.0) K/mm3 RBC (3.65-5.03) M/mm3 Hgb (10.1-14.3) gm/dl Hct (30.3-42.9) % MCV (79-97) fl MCH (28-32) pg MCHC (30-34) % RDW (13.2-15.2) % Plt Count (140-440) K/mm3 Lymph % (Auto) (13.4-35.0) % [place] % (Auto) (0.0-7.3) % Eos % (Auto) (0.0-4.3) % Baso % (Auto) (0.0-1.8) % Lymph # (1.2-5.4) K/mm3 [place] # (0.0-0.8) K/mm3 Eos # (0.0-0.4) K/mm3 Baso # (0.0-0.1) K/mm3 Seg Neutrophils % (40.0-70.0) % Seg Neutrophils # (1.8-7.7) K/mm3 Sodium (137-145) mmol/L Potassium (3.6-5.0) mmol/L Chloride (98-107) mmol/L Carbon Dioxide (22-30) mmol/L Anion Gap mmol/L BUN (7-17) mg/dL Creatinine (0.7-1.2) mg/dL Estimated GFR ml/min BUN/Creatinine Ratio % Glucose (65-100) mg/dL Calcium (8.4-10.2) mg/dL Total Bilirubin (0.1-1.2) mg/dL AST (5-40) units/L ALT (7-56) units/L Alkaline Phosphatase (35-129) units/L Troponin T (0.00-0.029) ng/mL Total Protein (6.3-8.2) g/dL Albumin (3.9-5) g/dL Albumin/Globulin Ratio % Lipase (13-60) units/L HCG, Qual Negative (Negative) Valproic Acid 127.8 H (50-100) ug/mL - EKG Data -: EKG Interpreted by [facility] EKG shows normal: sinus rhythm, axis (qrs 28), QRS complexes (qrsd 84), ST-T waves (no stemi/ t inv) Rate: normal (76) - Radiology Data Radiology results: report reviewed CT HEAD WITHOUT CONTRAST INDICATION / CLINICAL INFORMATION: frontal headache and vertigo, hx of seizure. TECHNIQUE: All CT scans at this location are performed using CT dose reduction for ALARA by means of automated exposure control. COMPARISON: Head CT 10/17/2018 FINDINGS: HEMORRHAGE: No evidence of intracranial hemorrhage or extra-axial fluid collection. EXTRA-AXIAL SPACES: Cortical sulci, sylvian fissures and basilar cisterns have an unremarkable appearance. VENTRICULAR SYSTEM: The ventricular system is of normal size and configuration. CEREBRAL PARENCHYMA: No areas of abnormal brain parenchymal attenuation are identified. There is no indication of recent infarction. MIDLINE SHIFT OR HERNIATION: There is no mass effect. CEREBELLUM / BRAINSTEM: Brainstem and cerebellum have an unremarkable appearance. INTRACRANIAL VESSELS:No abnormalities are identified on this noncontrast head CT. ORBITS: visualized portions of the orbits have an unremarkable appearance. SOFT TISSUES of HEAD: No significant abnormality. CALVARIUM: Evaluation of bone windows reveals no abnormalities. PARANASAL SINUSES / MASTOID AIR CELLS: Paranasal sinuses are free from inflammatory mucosal disease. Mastoid air cells are normally pneumatized. IMPRESSION: 1. No abnormalities are identified on head CT without contrast. No interval change since previous study dated 10/17/2018. - Medical Decision Making Patient has a headache as well as vertigo to her presentation in September. Improved to the ED treatment. Symptomatic treatment will be provided. Mildly supratherapeutic Depakote level. Patient instructed to hold a dose of depakote then resume - Differential Diagnosis vertigo, ICH vertebrobasilar insufficiency, complex migraine, Depakote toxi Critical Care Time: No Critical care attestation.: If time is entered above; I have spent that time in minutes in the direct care of this critically ill patient, excluding procedure time. ED Disposition Clinical Impression: Vertigo, Headache Disposition: DC-01 TO HOME OR SELFCARE Is pt being admited?: No Does the pt Need Aspirin: No Condition: Stable Instructions: Vertigo (ED), Acute Headache (ED) Additional Instructions: Take the medication as prescribed. Follow up with your doctor or the clinic/doctor provided. Return if symptoms worsen as indicated by your discharge instructions. You Depakote level is above therapeutic range. Hold 1 dose and then resume treatment. Prescriptions: Meclizine [Antivert] 25 mg PO TID PRN #30 tablet PRN Reason: Vertigo Ibuprofen [Motrin 600 MG tab] 600 mg PO Q8H PRN #30 tablet PRN Reason: Pain HYDROcodone/APAP 5-325 [Morral 5/325] 1 each PO Q6HR PRN #15 tablet PRN Reason: Pain Referrals: AKASH TAPIA MD [Staff Physician] - 3-5 Days (ENT) LEBRON AKINS MD [Staff Physician] - 3-5 Days (Neurolgy) AVEL HOWELL MD [Primary Care Provider] - 3-5 Days (primary care doctor ) Time of Disposition: 01:30
--- NOTE | 2019-04-08 22:35 | Cat Scan Report ---
CT HEAD WITHOUT CONTRAST INDICATION / CLINICAL INFORMATION: frontal headache and vertigo, hx of seizure. TECHNIQUE: All CT scans at this location are performed using CT dose reduction for ALARA by means of automated e xposure control. COMPARISON: Head CT 10/17/2018 FINDINGS: HEMORRHAGE: No evidence of intracranial hemorrhage or extra-axial fluid collection. EXTRA-AXIAL SPACES: Cortical sulci, sylvian fissures and basilar cisterns have an unremarkable appear ance. VENTRICULAR SYSTEM: The ventricular system is of normal size and configuration. CEREBRAL PARENCHYMA: No areas of abnormal brain parenchymal attenuation are identified. There is no i ndication of recent infarction. MIDLINE SHIFT OR HERNIATION: There is no mass effect. CEREBELLUM / BRAINSTEM: Brainstem and cerebellum have an unremarkable appearance. INTRACRANIAL VESSELS:No abnormalities are identified on this noncontrast head CT. ORBITS: visualized portions of the orbits have an unremarkable appearance. SOFT TISSUES of HEAD: No significant abnormality. CALVARIUM: Evaluation of bone windows reveals no abnormalities. PARANASAL SINUSES / MASTOID AIR CELLS: Paranasal sinuses are free from inflammatory mucosal disease. Mastoid air cells are normally pneumatized. IMPRESSION: 1. No abnormalities are identified on head CT without contrast. No interval change since previous brandon dy dated 10/17/2018. Signer Name: Maldonado Meyer MD Signed: 04/08/2019 10:31 PM Workstation Name: [id number]
[2019-04-08] MEDS ORDERED: DILAUDID IV ONE (22:48)
[2019-04-09] MEDS ORDERED: BENADRYL IV ONE (01:35)
[2019-04-09] MEDS ORDERED: SOLU-Medrol IV ONE (01:35)
[2019-04-09] MEDS ORDERED: PEPCID IV ONE (01:35)
[2019-04-09 02:06] VITALS: BP 125/80
== END 2019-04-09 02:50 | disposition home or self-care (01) ==
LOC: ED 15:48
DX: R42 Dizziness and giddiness (principal); R51 Headache; I10 Essential (primary) hypertension; E11.9 Type 2 diabetes mellitus without complications; M19.90 Unspecified osteoarthritis, unspecified site; J45.909 Unspecified asthma, uncomplicated; Z88.0 Allergy status to penicillin; Z91.018 Allergy to other foods; Z79.899 Other long term (current) drug therapy; Z86.2 Personal history of diseases of the blood and blood-forming organs and certain disorders involving the immune mechanism; Z98.51 Tubal ligation status
CPT/HCPCS: 36415; 70450; 80053; 80164; 82962; 83690; 84484; 84703; 85025; 93005; 93010; 96361; 96374; 96375; 99285; J1170; J1200; J1885; J2405; J2930; J7030

== ENCOUNTER 2019-06-18 17:25 | Emergency (ER) | payer BC ==
--- NOTE | 2019-06-18 19:34 | XRay Report ---
CHEST 2 VIEWS INDICATION / CLINICAL INFORMATION: Chest Pain. COMPARISON: Chest x-ray 01/30/2019 FINDINGS: SUPPORT DEVICES: None. HEART / MEDIASTINUM: No significant abnormality. LUNGS / PLEURA: No significant pulmonary or pleural abnormality. No pneumothorax. ADDITIONAL FINDINGS: No significant additional findings. IMPRESSION: 1. No acute findings. Signer Name: Sunil Ortega MD Signed: 06/18/2019 7:29 PM Workstation Name: [id number]
[2019-06-18 19:36] LABS: Basophils % (Auto) 0.4 % (0.0-1.8); Eosinophils % (Auto) 0.1 % (0.0-4.3); Hematocrit 41.1 % (30.3-42.9); Hemoglobin 13.4 gm/dl (10.1-14.3); Lymphocytes # (Auto) 2.5 K/mm3 (1.2-5.4); Lymphocytes % (Auto) 28.7 % (13.4-35.0); Mean Corpuscular HGB Conc 33 % (30-34); Mean Corpuscular Volume 87 fl (79-97); Monocytes # (Auto) 1.2 K/mm3 (0.0-0.8); Monocytes % (Auto) 13.4 % (0.0-7.3); Platelet Count 249 K/mm3 (140-440); Red Blood Count 4.74 M/mm3 (3.65-5.03); Red Cell Distribution Width 15.1 % (13.2-15.2)
[2019-06-18] MEDS ORDERED: NITROGLYCERIN 0.4 MG TAB SUBL SL ONE (19:36)
--- NOTE | 2019-06-18 19:40 | Emergency Department Report ---
ED Chest Pain HPI - General Chief Complaint: Chest Pain Stated Complaint: CHEST PRESSURE/BP HIGH Time Seen by Provider: 06/18/19 19:32 Source: patient Mode of arrival: Ambulatory Limitations: No Limitations - History of Present Illness Initial Comments: Patient is 44-year-old female with history of hypertension. Patient presented to the ER complaining of left-sided chest pain. Patient described her pain as pressure with radiation to the left upper extremity. Patient stated that pain started this afternoon. Patient stated that she saw Dr. Myrna jovel and she was told labs are fine. Patient denied any headache, neck pain, abdominal pain, weakness numbness or tingling sensation. Patient found to have a blood pressure of 170/105. MD Complaint: chest pain -: This afternoon Onset: during rest Pain Location: substernal, left chest Pain Radiation: LUE Severity: moderate Severity scale (0 -10): 6 Quality: heaviness, pressure - Related Data Home Medications Medication Instructions Recorded Confirmed Last Taken Albuterol Sulfate [Ventolin HFA] 2 puff INHALATION Q4HR PRN 08/29/13 06/19/19 Unknown Amlodipine Besylate [Norvasc] 5 mg PO QDAY 03/27/18 06/19/19 09/06/18 Divalproex Sodium [Depakote ER] 3,000 mg PO HS 03/27/18 06/19/19 09/06/18 Escitalopram Oxalate [Lexapro] 10 mg PO QAM 06/19/19 06/19/19 Unknown Toprol Xl 25 mg PO DAILY 06/19/19 06/19/19 Unknown traZODone [Desyrel] 1 tab PO HS 06/19/19 06/19/19 Unknown Previous Rx's Medication Instructions Recorded Last Taken Type Cyclobenzaprine [Flexeril 10 MG 10 mg PO TID PRN #12 tablet 08/07/18 09/04/18 Rx TAB] traMADol [Ultram 50 MG tab] 50 mg PO Q6HR PRN #12 tablet 08/07/18 09/06/18 Rx Simvastatin [Zocor TAB] 40 mg PO QHS #30 tablet 09/08/18 Unknown Rx Meclizine [Antivert] 25 mg PO Q8H PRN #30 tablet 10/19/18 Unknown Rx Prednisone [predniSONE 10 mg 10 mg PO .TAPER #1 tab.ds.pk 01/30/19 Unknown Rx (6-Day Pack, 21 Tabs)] ALBUTEROL Inhaler(NF) [VENTOLIN 1 puff IH QID PRN #1 inha 02/03/19 Unknown Rx Inhaler(NF)] HYDROcodone/APAP 5-325 [Ransom 1 each PO Q6HR PRN #15 tablet 04/09/19 Unknown Rx 5/325] Ibuprofen [Motrin 600 MG tab] 600 mg PO Q8H PRN #30 tablet 04/09/19 Unknown Rx Meclizine [Antivert] 25 mg PO TID PRN #30 tablet 04/09/19 Unknown Rx predniSONE [Deltasone] 40 mg PO QDAY #5 tab 04/09/19 Unknown Rx Allergies Allergy/AdvReac Type Severity Reaction Status Date / Time Penicillins Allergy Rash Verified 04/08/19 15:53 Tomato Allergy Hives Uncoded 07/21/16 22:52 Heart Score - HEART Score History: Moderately suspicious EKG: Non-specific Age: 45-65 Risk factors: 1-2 risk factors Troponin: < normal limit HEART Score: 4 - Critical Actions Critical Actions: 4-6 pts:12-16.6% risk of adverse cardiac event. Should be admitted ED Review of Systems ROS: Stated complaint: CHEST PRESSURE/BP HIGH Other details as noted in HPI Comment: All other systems reviewed and negative Constitutional: denies: chills, fever Respiratory: denies: cough, shortness of breath, SOB with exertion Cardiovascular: chest pain. denies: palpitations Gastrointestinal: denies: abdominal pain, nausea, vomiting Musculoskeletal: denies: back pain Neurological: denies: headache, weakness ED Past Medical Hx - Past Medical History Hx Hypertension: Yes Hx Heart Attack/AMI: No Hx Congestive Heart Failure: No Hx Diabetes: Yes Hx Deep Vein Thrombosis: No Hx Pulmonary Embolism: No Hx Liver Disease: No Hx Arthritis: Yes Hx Headaches / Migraines: Yes Hx Seizures: Yes Hx Asthma: Yes Hx COPD: No Hx Tuberculosis: No Hx Dementia: No Hx HIV: No Additional medical history: anemia, svt, endometriosis, BOILS - Surgical History Hx Coronary Stent: No Hx Pacemaker: No Hx Internal Defibrillator: No Additional Surgical History: hernia, tubal ligation, right knee surgery, heart ablation. right shoulder dislocation - Social History Smoking Status: Never Smoker Substance Use Type: None - Medications Home Medications: Home Medications Medication Instructions Recorded Confirmed Last Taken Type Albuterol Sulfate [Ventolin HFA] 2 puff INHALATION Q4HR PRN 08/29/13 06/19/19 Unknown History Amlodipine Besylate [Norvasc] 5 mg PO QDAY 03/27/18 06/19/19 09/06/18 History Divalproex Sodium [Depakote ER] 3,000 mg PO HS 03/27/18 06/19/19 09/06/18 History Cyclobenzaprine [Flexeril 10 MG 10 mg PO TID PRN #12 tablet 08/07/18 06/19/19 09/04/18 Rx TAB] traMADol [Ultram 50 MG tab] 50 mg PO Q6HR PRN #12 tablet 08/07/18 06/19/19 09/06/18 Rx Simvastatin [Zocor TAB] 40 mg PO QHS #30 tablet 09/08/18 06/19/19 Unknown Rx Meclizine [Antivert] 25 mg PO Q8H PRN #30 tablet 10/19/18 06/19/19 Unknown Rx Prednisone [predniSONE 10 mg 10 mg PO .TAPER #1 tab.ds.pk 01/30/19 06/19/19 Unknown Rx (6-Day Pack, 21 Tabs)] ALBUTEROL Inhaler(NF) [VENTOLIN 1 puff IH QID PRN #1 inha 02/03/19 06/19/19 Unknown Rx Inhaler(NF)] HYDROcodone/APAP 5-325 [Ransom 1 each PO Q6HR PRN #15 tablet 04/09/19 06/19/19 Unknown Rx 5/325] Ibuprofen [Motrin 600 MG tab] 600 mg PO Q8H PRN #30 tablet 04/09/19 06/19/19 Unknown Rx Meclizine [Antivert] 25 mg PO TID PRN #30 tablet 04/09/19 06/19/19 Unknown Rx predniSONE [Deltasone] 40 mg PO QDAY #5 tab 04/09/19 06/19/19 Unknown Rx Escitalopram Oxalate [Lexapro] 10 mg PO QAM 06/19/19 06/19/19 Unknown History Toprol Xl 25 mg PO DAILY 06/19/19 06/19/19 Unknown History traZODone [Desyrel] 1 tab PO HS 06/19/19 06/19/19 Unknown History ED Physical Exam - General Limitations: No Limitations General appearance: alert, in no apparent distress - Head Head exam: Present: atraumatic, normocephalic, normal inspection - Eye Eye exam: Present: normal appearance - ENT ENT exam: Present: normal exam, normal orophraynx, mucous membranes moist - Neck Neck exam: Present: normal inspection, full ROM. Absent: tenderness, meningismus, lymphadenopathy, thyromegaly - Respiratory Respiratory exam: Present: normal lung sounds bilaterally - Cardiovascular Cardiovascular Exam: Present: regular rate, normal rhythm, normal heart sounds - GI/Abdominal GI/Abdominal exam: Present: soft, normal bowel sounds. Absent: distended, tenderness, guarding, rebound, rigid, diminished bowel sounds, organomegaly, mass, bruit, pulsatile mass, hernia - Extremities Exam Extremities exam: Present: normal inspection, full ROM, normal capillary refill. Absent: tenderness, pedal edema, joint swelling, calf tenderness - Back Exam Back exam: Present: normal inspection, full ROM. Absent: CVA tenderness (R), CVA tenderness (L), muscle spasm, paraspinal tenderness, vertebral tenderness - Neurological Exam Neurological exam: Present: alert, oriented X3, CN II-XII intact, normal gait, reflexes normal - Psychiatric Psychiatric exam: Present: normal mood - Skin Skin exam: Present: warm, intact, normal color ED Course Vital Signs 06/18/19 06/18/19 06/18/19 17:39 19:55 19:56 Temperature 99.2 F 98.3 F Pulse Rate 108 H 96 H 100 H Respiratory 18 24 Rate Blood Pressure 178/105 192/108 Blood Pressure 183/101 [Left] O2 Sat by Pulse 96 100 Oximetry 06/18/19 06/18/19 06/18/19 20:31 21:00 21:01 Temperature Pulse Rate 94 H 94 H 108 H Respiratory 22 21 Rate Blood Pressure 183/101 117/66 Blood Pressure 120/72 [Left] O2 Sat by Pulse 100 100 Oximetry 06/18/19 06/18/19 06/18/19 21:31 22:01 22:30 Temperature Pulse Rate 86 83 81 Respiratory 21 16 19 Rate Blood Pressure 117/66 117/66 108/61 Blood Pressure [Left] O2 Sat by Pulse 100 100 100 Oximetry 06/18/19 06/18/19 06/19/19 23:01 23:31 00:00 Temperature Pulse Rate 81 80 80 Respiratory 21 20 22 Rate Blood Pressure 108/61 113/75 110/77 Blood Pressure [Left] O2 Sat by Pulse 100 100 Oximetry 06/19/19 06/19/19 06/19/19 00:31 01:00 02:10 Temperature Pulse Rate 77 71 72 Respiratory 20 16 12 Rate Blood Pressure 110/77 98/65 Blood Pressure 109/73 [Left] O2 Sat by Pulse 100 100 Oximetry ANSELMO score - Anselmo Score Age > 65: (0) No Aspirin use within the Past 7 Days: (0) No 3 or more CAD Risk Factors: (0) No 2 or more Angina events in past 24 hrs: (1) Yes Known CAD with more than 50% Stenosis: (0) No Elevated Cardiac Markers: (0) No ST Deviation Greater than 0.5mm: (0) No ANSELMO Score: 1 ED Medical Decision Making - Lab Data Result diagrams: 06/18/19 19:08 06/18/19 19:08 - EKG Data -: EKG Interpreted by Ny EKG shows normal: sinus rhythm Rate: tachycardia - EKG Data Interpretation: no acute changes - Radiology Data Radiology results: report reviewed Referring Physician: SARWAT WEEMS Patient Name: DYLON MENDOZA Date of : 1975 Sex: Female Report Date: 2019-06-19 Report Status: Finalized Findings [facility] [address] [place] [address] Cat Scan Report Signed Patient: DYLON MENDOZA MR#: [id number] : 1975 Acct:[id number] Age/Sex: 44 / F ADM Date: 06/18/19 Loc: ED Attending Dr: Ordering Physician: SAWRAT WEEMS Date of Service: 06/18/19 Procedure(s): CT angio chest Accession Number(s): [id number] cc: SARWAT WEEMS CTA CHEST WITH IV CONTRAST INDICATION: CHEST PAIN WITH ELEVATED D-DIMER. TECHNIQUE: Axial CT images were obtained through the chest after injection of 100 mL Omnipaque 350 IV contrast. 3 plane MIP reconstructions were produced. All CT scans at this location are performed using CT dose reduction for ALARA by means of automated exposure control. COMPARISON: CTA chest on 09/07/2018. FINDINGS: Pulmonary Arteries: No pulmonary emboli. Lungs: No significant abnormality. Trachea and Bronchi: No significant abnormality. Heart and Pericardium: No significant abnormality. Vasculature: No significant abnormality. Lymphatics: No lymphadenopathy. Additional Findings: None. Upper Abdomen: No acute findings. Skeletal Structures: No significant osseous abnormality. IMPRESSION: 1. No CT evidence for pulmonary embolism. 2. No acute findings. Signer Name: Richar Bonilla MD Signed: 06/19/2019 2:30 AM Workstation Name: [id number] Transcribed By: ASHLEY Dictated By: Richar Bonilla MD Electronically Authenticated By: Richar Bonilla MD Signed Date/Time: 06/19/19229 DD/ 7 TD/TT: - Medical Decision Making Patient is 44-year-old female with history of hypertension. Patient presented to the ER complaining of left-sided chest pain. Patient described her pain as pressure with radiation to the left upper extremity. Patient stated that pain started this afternoon. Patient stated that she saw Dr. Myrna jovel and she was told labs are fine. Patient denied any headache, neck pain, abdominal pain, weakness numbness or tingling sensation. Patient found to have a blood pressure of 170/105. Patient labs reviewed and is unremarkable except for elevated d-dimer. Patient CTA chest is negative for PE. Patient stated that she is feeling much better, dispense completely resolved. Patient advised to follow-up with her stumper feller in the next 2-3 days and to attend to the ER if symptoms are not improved. Critical care attestation.: If time is entered above; I have spent that time in minutes in the direct care of this critically ill patient, excluding procedure time. ED Disposition Clinical Impression: Chest pain, Malignant hypertension Disposition: DC-01 TO HOME OR SELFCARE Is pt being admited?: No Condition: Stable Instructions: Chest Pain (ED), Hypertension (ED) Referrals: PRIMARY CARE, [Primary Care Provider] - 3-5 Days
[2019-06-18 19:57] LABS: Alanine Aminotransferase 14 units/L (7-56); Albumin 4.5 g/dL (3.9-5); BUN/Creatinine Ratio 13; Blood Urea Nitrogen 9 mg/dL (7-17); Calcium 8.8 mg/dL (8.4-10.2); Hemolysis Index 28
[2019-06-18] MEDS ORDERED: ACETAMINOPHEN 500 MG TAB PO ONE (20:11)
--- NOTE | 2019-06-19 02:34 | Cat Scan Report ---
CTA CHEST WITH IV CONTRAST INDICATION: CHEST PAIN WITH ELEVATED D-DIMER. TECHNIQUE: Axial CT images were obtained through the chest after injection of 100 mL Omnipaque 350 IV contrast. 3 plane MIP reconstructions were produced. All CT scans at this location are performed using CT dose reduction for ALARA by means of automated exposure control. COMPARISON: CTA chest on 09/07/2018. FINDINGS: Pulmonary Arteries: No pulmonary emboli. Lungs: No significant abnormality. Trachea and Bronchi: No significant abnormality. Heart and Pericardium: No significant abnormality. Vasculature: No significant abnormality. Lymphatics: No lymphadenopathy. Additional Findings: None. Upper Abdomen: No acute findings. Skeletal Structures: No significant osseous abnormality. IMPRESSION: 1. No CT evidence for pulmonary embolism. 2. No acute findings. Signer Name: Richar Bonilla MD Signed: 06/19/2019 2:30 AM Workstation Name: [id number]
[2019-06-19 03:15] VITALS: BP 119/80
== END 2019-06-19 03:00 | disposition home or self-care (01) ==
LOC: ED 17:25
DX: R07.89 Other chest pain (principal); I10 Essential (primary) hypertension; E11.9 Type 2 diabetes mellitus without complications; M19.90 Unspecified osteoarthritis, unspecified site; G43.909 Migraine, unspecified, not intractable, without status migrainosus; J45.909 Unspecified asthma, uncomplicated; Z86.2 Personal history of diseases of the blood and blood-forming organs and certain disorders involving the immune mechanism; Z98.51 Tubal ligation status; Z98.890 Other specified postprocedural states; Z88.8 Allergy status to other drugs, medicaments and biological substances; Z91.018 Allergy to other foods
CPT/HCPCS: 36415; 71046; 71275; 80053; 84484; 85025; 85379; 93005; 93010; 99284; Q9967

== ENCOUNTER 2019-07-23 18:22 | Emergency (ER) | payer BC ==
--- NOTE | 2019-07-23 18:55 | Event Note ---
ED Screening Note Date of service: 07/23/19 Time: 18:52 ED Screening Note: Pt complains of left middle finger pain and hand pain after jamming finger x today This initial assessment/diagnostic orders/clinical plan/treatment(s) is/are subject to change based on patients health status, clinical progression and re- assessment by fellow clinical providers in the ED. Further treatment and workup at subsequent clinical providers discretion. Patient/guardian urged not to elope from the ED as their condition may be serious if not clinically assessed and managed. Initial orders include: xr
--- NOTE | 2019-07-23 20:03 | XRay Report ---
LEFT HAND 3 VIEWS INDICATION / CLINICAL INFORMATION: middle finger and middle pain, jammed COMPARISON: None available. FINDINGS: BONES / JOINT(S): No acute fracture or subluxation. No significant arthritis. SOFT TISSUES: No significant abnormality. ADDITIONAL FINDINGS: None. Signer Name: Michoacano Crockett MD Signed: 07/23/2019 7:59 PM Workstation Name: [id number]
--- NOTE | 2019-07-23 20:42 | Emergency Department Report ---
ED Upper Extremity Inj HPI - General Chief Complaint: Extremity Injury, Upper Stated Complaint: L FINGER INJURY Time Seen by Provider: 07/23/19 18:51 Source: patient Mode of arrival: Ambulatory Limitations: No Limitations - History of Present Illness Initial Comments: This is a 44-year-old female who presents to the ED complaining of left middle finger pain x 5 days. Patient states she was running from of dog and accidentally hit it against a truck. Patient states she's been having pain in the finger since then. Patient states she went to type today and started having shooting pains on the finger. she states that movement of the finger me in worse. She denies any lacerations swelling to the finger. Complaint: Injury to:: left (middle finger) Other Extremity Injury: Fingers: Left Other Injuries: none - Related Data Home Medications Medication Instructions Recorded Confirmed Last Taken Albuterol Sulfate [Ventolin HFA] 2 puff INHALATION Q4HR PRN 08/29/13 06/19/19 Unknown Amlodipine Besylate [Norvasc] 5 mg PO QDAY 03/27/18 06/19/19 09/06/18 Divalproex Sodium [Depakote ER] 3,000 mg PO HS 03/27/18 06/19/19 09/06/18 Escitalopram Oxalate [Lexapro] 10 mg PO QAM 06/19/19 06/19/19 Unknown Toprol Xl 25 mg PO DAILY 06/19/19 06/19/19 Unknown traZODone [Desyrel] 1 tab PO HS 06/19/19 06/19/19 Unknown Previous Rx's Medication Instructions Recorded Last Taken Type traMADol [Ultram 50 MG tab] 50 mg PO Q6HR PRN #12 tablet 08/07/18 09/06/18 Rx Simvastatin [Zocor TAB] 40 mg PO QHS #30 tablet 09/08/18 Unknown Rx Meclizine [Antivert] 25 mg PO Q8H PRN #30 tablet 10/19/18 Unknown Rx Prednisone [predniSONE 10 mg 10 mg PO .TAPER #1 tab.ds.pk 01/30/19 Unknown Rx (6-Day Pack, 21 Tabs)] ALBUTEROL Inhaler(NF) [VENTOLIN 1 puff IH QID PRN #1 inha 02/03/19 Unknown Rx Inhaler(NF)] HYDROcodone/APAP 5-325 [Gove 1 each PO Q6HR PRN #15 tablet 04/09/19 Unknown Rx 5/325] Meclizine [Antivert] 25 mg PO TID PRN #30 tablet 04/09/19 Unknown Rx predniSONE [Deltasone] 40 mg PO QDAY #5 tab 04/09/19 Unknown Rx Nitroglycerin [Nitrostat] 0.4 mg SL Q5M PRN #30 tab 06/19/19 Unknown Rx Cyclobenzaprine [Flexeril 10 MG 10 mg PO QHS PRN #12 tablet 07/23/19 Unknown Rx TAB] Ibuprofen [Motrin 600 MG tab] 600 mg PO Q8H PRN #30 tablet 07/23/19 Unknown Rx Allergies Allergy/AdvReac Type Severity Reaction Status Date / Time Penicillins Allergy Rash Verified 04/08/19 15:53 Tomato Allergy Hives Uncoded 07/21/16 22:52 ED Review of Systems ROS: Stated complaint: L FINGER INJURY Other details as noted in HPI Comment: All other systems reviewed and negative ED Past Medical Hx - Past Medical History Previous Medical History?: Yes Hx Hypertension: Yes Hx Heart Attack/AMI: No Hx Congestive Heart Failure: No Hx Diabetes: Yes Hx Deep Vein Thrombosis: No Hx Pulmonary Embolism: No Hx Liver Disease: No Hx Arthritis: Yes Hx Headaches / Migraines: Yes Hx Seizures: Yes Hx Asthma: Yes Hx COPD: No Hx Tuberculosis: No Hx Dementia: No Hx HIV: No Additional medical history: anemia, svt, endometriosis, BOILS - Surgical History Past Surgical History?: Yes Hx Coronary Stent: No Hx Pacemaker: No Hx Internal Defibrillator: No Additional Surgical History: hernia, tubal ligation, right knee surgery, heart ablation. right shoulder dislocation - Social History Smoking Status: Former Smoker Substance Use Type: None - Medications Home Medications: Home Medications Medication Instructions Recorded Confirmed Last Taken Type Albuterol Sulfate [Ventolin HFA] 2 puff INHALATION Q4HR PRN 08/29/13 06/19/19 Unknown History Amlodipine Besylate [Norvasc] 5 mg PO QDAY 03/27/18 06/19/19 09/06/18 History Divalproex Sodium [Depakote ER] 3,000 mg PO HS 03/27/18 06/19/19 09/06/18 History traMADol [Ultram 50 MG tab] 50 mg PO Q6HR PRN #12 tablet 08/07/18 06/19/19 09/06/18 Rx Simvastatin [Zocor TAB] 40 mg PO QHS #30 tablet 09/08/18 06/19/19 Unknown Rx Meclizine [Antivert] 25 mg PO Q8H PRN #30 tablet 10/19/18 06/19/19 Unknown Rx Prednisone [predniSONE 10 mg 10 mg PO .TAPER #1 tab.ds.pk 01/30/19 06/19/19 Unknown Rx (6-Day Pack, 21 Tabs)] ALBUTEROL Inhaler(NF) [VENTOLIN 1 puff IH QID PRN #1 inha 02/03/19 06/19/19 Unknown Rx Inhaler(NF)] HYDROcodone/APAP 5-325 [Gove 1 each PO Q6HR PRN #15 tablet 04/09/19 06/19/19 Unknown Rx 5/325] Meclizine [Antivert] 25 mg PO TID PRN #30 tablet 04/09/19 06/19/19 Unknown Rx predniSONE [Deltasone] 40 mg PO QDAY #5 tab 04/09/19 06/19/19 Unknown Rx Escitalopram Oxalate [Lexapro] 10 mg PO QAM 06/19/19 06/19/19 Unknown History Nitroglycerin [Nitrostat] 0.4 mg SL Q5M PRN #30 tab 06/19/19 Unknown Rx Toprol Xl 25 mg PO DAILY 06/19/19 06/19/19 Unknown History traZODone [Desyrel] 1 tab PO HS 06/19/19 06/19/19 Unknown History Cyclobenzaprine [Flexeril 10 MG 10 mg PO QHS PRN #12 tablet 07/23/19 Unknown Rx TAB] Ibuprofen [Motrin 600 MG tab] 600 mg PO Q8H PRN #30 tablet 07/23/19 Unknown Rx ED Physical Exam - General Limitations: No Limitations General appearance: alert, in no apparent distress - Head Head exam: Present: atraumatic, normocephalic - Eye Eye exam: Present: normal appearance - ENT ENT exam: Present: mucous membranes moist - Neck Neck exam: Present: normal inspection - Respiratory Respiratory exam: Present: normal lung sounds bilaterally. Absent: respiratory distress - Cardiovascular Cardiovascular Exam: Present: regular rate, normal rhythm. Absent: systolic murmur, diastolic murmur, rubs, gallop - GI/Abdominal GI/Abdominal exam: Present: soft, normal bowel sounds - Extremities Exam Extremities exam: Present: normal inspection, full ROM, tenderness (to palpation of the left middle finger, no swelling no laceration) - Back Exam Back exam: Present: normal inspection - Neurological Exam Neurological exam: Present: alert, oriented X3 - Psychiatric Psychiatric exam: Present: normal affect, normal mood - Skin Skin exam: Present: warm, dry, intact, normal color. Absent: rash ED Course Vital Signs 07/23/19 07/23/19 18:26 21:25 Temperature 98.3 F Pulse Rate 84 69 Respiratory 17 17 Rate Blood Pressure 172/95 Blood Pressure 136/91 [Right] O2 Sat by Pulse 98 99 Oximetry ED Medical Decision Making - Radiology Data Radiology results: report reviewed, image reviewed LEFT HAND 3 VIEWS INDICATION / CLINICAL INFORMATION: middle finger and middle pain, jammed COMPARISON: None available. FINDINGS: BONES / JOINT(S): No acute fracture or subluxation. No significant arthritis. SOFT TISSUES: No significant abnormality. ADDITIONAL FINDINGS: None. Signer Name: Michoacano Crockett MD Signed: 07/23/2019 7:59 PM Workstation Name: [id number] Transcribed By: SS Dictated By: Michoacano Crockett MD Electronically Authenticated By: Michoacano Crockett MD Signed Date/Time: 07/23/191958 - Medical Decision Making 44-year-old female presents with left finger contusion. X-rays ordered. X-ray shows no acute fracture or dislocation. I discussed x-ray findings with the patient. Vital signs are normal she is in no acute distress. Discussed the patient to follow-up with the primary care physician. Critical care attestation.: If time is entered above; I have spent that time in minutes in the direct care of this critically ill patient, excluding procedure time. ED Disposition Clinical Impression: Finger pain, left, Contusion of finger of left hand Disposition: DC- TO HOME OR SELFCARE Is pt being admited?: No Does the pt Need Aspirin: No Condition: Stable Instructions: Finger Sprain (ED), Arthralgia (ED) Additional Instructions: Make sure to follow up with the primary care physician as discussed. Take all your medications as you've been prescribed. If you have any worsening symptoms or develop new symptoms please return to ED immediately. Prescriptions: Cyclobenzaprine [Flexeril 10 MG TAB] 10 mg PO QHS PRN #12 tablet PRN Reason: Muscle Spasm Ibuprofen [Motrin 600 MG tab] 600 mg PO Q8H PRN #30 tablet PRN Reason: Pain Referrals: [facility] [Outside] - 3-5 Days [facility] [Outside] - 3-5 Days Forms: Work/School Release Form(ED) Time of Disposition: 21:19
[2019-07-23 21:47] VITALS: BP 136/91
== END 2019-07-23 21:25 | disposition home or self-care (01) ==
LOC: ED 18:22
DX: S60.032A Contusion of left middle finger without damage to nail, initial encounter (principal); I10 Essential (primary) hypertension; E11.9 Type 2 diabetes mellitus without complications; G43.909 Migraine, unspecified, not intractable, without status migrainosus; J45.909 Unspecified asthma, uncomplicated; D64.9 Anemia, unspecified; Z98.51 Tubal ligation status; Z98.890 Other specified postprocedural states; Z87.891 Personal history of nicotine dependence; Z79.899 Other long term (current) drug therapy; Z88.0 Allergy status to penicillin; W22.8XXA Striking against or struck by other objects, initial encounter; Y93.02 Activity, running; Y92.89 Other specified places as the place of occurrence of the external cause; Y99.8 Other external cause status

== ENCOUNTER 2019-10-27 17:01 | Emergency (ER) | payer BC ==
--- NOTE | 2019-10-27 19:18 | Event Note ---
ED Screening Note ED Screening Note: right sided rib pain that began yesterday states she used her inhaler and pain medication and still has pain states she has SOB +dry cough pt states she has pain with coughing no fall or injury PMHx epilepsy, asthma, HTN, DM allergy: PCN, dilaudid This initial assessment/diagnostic orders/clinical plan/treatment(s) is/are subject to change based on patients health status, clinical progression and re- assessment by fellow clinical providers in the ED. Further treatment and workup at subsequent clinical providers discretion. Patient/guardian urged not to elope from the ED as their condition may be serious if not clinically assessed and managed. Initial orders include: cp protocol
[2019-10-27 21:23] LABS: Basophils # (Auto) 0.1 K/mm3 (0.0-0.1); Basophils % (Auto) 0.7 % (0.0-1.8); Eosinophils % (Auto) 0.3 % (0.0-4.3); Hematocrit 37.8 % (30.3-42.9); Hemoglobin 12.5 gm/dl (10.1-14.3); Lymphocytes # (Auto) 3.2 K/mm3 (1.2-5.4); Lymphocytes % (Auto) 40.1 % (13.4-35.0); Mean Corpuscular HGB Conc 33 % (30-34); Mean Corpuscular Volume 86 fl (79-97); Monocytes # (Auto) 0.4 K/mm3 (0.0-0.8); Monocytes % (Auto) 5.5 % (0.0-7.3); Platelet Count 300 K/mm3 (140-440); Red Cell Distribution Width 15.3 % (13.2-15.2)
[2019-10-27 21:39] LABS: INR 0.96 (0.87-1.13)
[2019-10-27 21:47] LABS: Alanine Aminotransferase 5 units/L (7-56); BUN/Creatinine Ratio 17; Blood Urea Nitrogen 10 mg/dL (7-17); Calcium 8.9 mg/dL (8.4-10.2); Hemolysis Index 4
--- NOTE | 2019-10-27 23:38 | XRay Report ---
CHEST 2 VIEWS INDICATION: right rib pain, SOB. COMPARISON: 06/18/2019 FINDINGS: Support devices: None. Heart: Within normal limits. Lungs/pleura: No acute air space or interstitial disease. No pneumothorax. Additional findings: None. IMPRESSION: 1. No acute findings. Signer Name: Darshan Bolton MD Signed: 10/27/2019 11:34 PM Workstation Name: [id number]
[2019-10-28 00:34] VITALS: BP 154/92
== END 2019-10-28 02:29 | disposition left against medical advice (07) ==
LOC: ED 17:01
DX: R10.9 Unspecified abdominal pain (principal); Z53.21 Procedure and treatment not carried out due to patient leaving prior to being seen by health care provider
CPT/HCPCS: 36415; 71046; 80053; 84484; 84703; 85025; 85610; 85730; 93005; 93010

== ENCOUNTER 2019-11-05 14:57 | Emergency (ER) | payer BC ==
[2019-11-05] MEDS ORDERED: SODIUM CHLORIDE 0.9% 1000 ML 1,000 ML IV ONE (15:39)
[2019-11-05 16:16] LABS: Basophils # (Auto) 0.1 K/mm3 (0.0-0.1); Basophils % (Auto) 0.8 % (0.0-1.8); Eosinophils % (Auto) 0.2 % (0.0-4.3); Hematocrit 41.1 % (30.3-42.9); Hemoglobin 13.3 gm/dl (10.1-14.3); Lymphocytes # (Auto) 4.3 K/mm3 (1.2-5.4); Lymphocytes % (Auto) 38.4 % (13.4-35.0); Mean Corpuscular HGB Conc 32 % (30-34); Mean Corpuscular Volume 87 fl (79-97); Monocytes # (Auto) 0.7 K/mm3 (0.0-0.8); Monocytes % (Auto) 6.3 % (0.0-7.3); Platelet Count 350 K/mm3 (140-440); Red Blood Count 4.73 M/mm3 (3.65-5.03); Red Cell Distribution Width 15.3 % (13.2-15.2)
[2019-11-05 16:41] LABS: Alanine Aminotransferase 10 units/L (7-56); Albumin 4.2 g/dL (3.9-5); BUN/Creatinine Ratio 20; Blood Urea Nitrogen 16 mg/dL (7-17); Calcium 8.9 mg/dL (8.4-10.2); Hemolysis Index 53
[2019-11-05 17:29] LABS: Bilirubin,Urine NEG (Negative); Blood,Urine SM (Negative); Color,Urine Straw (Yellow); Mucus,Urine FEW /HPF; Protein,Urine <15 mg/dL mg/dL (Negative); Urobilinogen,Urine < 2.0 mg/dL (<2.0); WBC,Urine < 1.0 /HPF (0.0-6.0)
[2019-11-05 17:36] LABS: Amphetamine Screen,Urine PRESUMPTIVE NEGATIVE; Benzodiazepines Screen,Urine PRESUMPTIVE NEGATIVE; Cannabinoid Screen,Urine PRESUMPTIVE NEGATIVE; Cocaine Screen,Urine PRESUMPTIVE NEGATIVE; Methadone Screen,Urine PRESUMPTIVE NEGATIVE; Opiate Screen,Urine PRESUMPTIVE NEGATIVE
[2019-11-05 18:12] LABS: Free T4 (Free Thyroxine) 1.24 ng/dL (0.76-1.46)
[2019-11-05 19:57] VITALS: BP 140/95
--- NOTE | 2019-11-05 20:31 | Emergency Department Report ---
- General Chief complaint: Altered Mental Status Stated complaint: SLEEPY Time Seen by Provider: 11/05/19 15:25 Source: patient, EMS Mode of arrival: Stretcher Limitations: No Limitations - History of Present Illness Initial comments: Patient is a 44-year-old F [place] female who states she has had extreme fatigue all day. Patient believed that her blood glucose was low. She does have a history of diabetes. She checked her blood sugar and was 86 which is low for her but still within normal limits. Patient states he is having hard time staying awake and she feels weak. She has some mild nausea associated with this. She denies any actual focal neurological deficit she can move her arms and legs and speak in full sentences however she states after a few seconds of talking to someone she close arises and starts to fall asleep. She has no difficulty breathing or history of sleep apnea. She states she is not depressed and not having any homicidal suicidal ideations. Severity scale (0 -10): 5 - Related Data Home Medications Medication Instructions Recorded Confirmed Last Taken Albuterol Sulfate [Ventolin HFA] 2 puff INHALATION Q4HR PRN 08/29/13 09/24/19 Unknown Amlodipine Besylate [Norvasc] 5 mg PO QDAY 03/27/18 09/24/19 09/06/18 Divalproex Sodium [Depakote ER] 3,000 mg PO HS 03/27/18 09/24/19 09/06/18 Toprol Xl 25 mg PO DAILY 06/19/19 09/24/19 Unknown traZODone [Desyrel] 1 tab PO HS 06/19/19 09/24/19 Unknown Previous Rx's Medication Instructions Recorded Last Taken Type traMADoL [Ultram 50 MG tab] 50 mg PO Q6HR PRN #12 tablet 08/07/18 09/06/18 Rx Simvastatin [Zocor TAB] 40 mg PO QHS #30 tablet 09/08/18 Unknown Rx Meclizine [Antivert] 25 mg PO Q8H PRN #30 tablet 10/19/18 Unknown Rx ALBUTEROL Inhaler(NF) [VENTOLIN 1 puff IH QID PRN #1 inha 02/03/19 Unknown Rx Inhaler(NF)] HYDROcodone/APAP 5-325 [[place] 1 each PO Q6HR PRN #15 tablet 04/09/19 Unknown Rx 5/325] Meclizine [Antivert] 25 mg PO TID PRN #30 tablet 04/09/19 Unknown Rx Nitroglycerin [Nitrostat] 0.4 mg SL Q5M PRN #30 tab 06/19/19 Unknown Rx Cyclobenzaprine [Flexeril 10 MG 10 mg PO QHS PRN #12 tablet 07/23/19 Unknown Rx TAB] Ibuprofen [Motrin 600 MG tab] 600 mg PO Q8H PRN #30 tablet 07/23/19 Unknown Rx Allergies Allergy/AdvReac Type Severity Reaction Status Date / Time Penicillins Allergy Rash Verified 04/08/19 15:53 Tomato Allergy Hives Uncoded 07/21/16 22:52 ED Review of Systems ROS: Stated complaint: SLEEPY Other details as noted in HPI Comment: All other systems reviewed and negative ED Past Medical Hx - Past Medical History Hx Hypertension: Yes Hx Heart Attack/AMI: No Hx Congestive Heart Failure: No Hx Diabetes: Yes Hx Deep Vein Thrombosis: No Hx Pulmonary Embolism: No Hx Liver Disease: No Hx Arthritis: Yes Hx Headaches / Migraines: Yes Hx Seizures: Yes Hx Asthma: Yes Hx COPD: No Hx Tuberculosis: No Hx Dementia: No Hx HIV: No Additional medical history: anemia, svt, endometriosis, BOILS - Surgical History Hx Coronary Stent: No Hx Pacemaker: No Hx Internal Defibrillator: No Additional Surgical History: hernia, tubal ligation, right knee surgery, heart ablation. right shoulder dislocation - Social History Smoking Status: Never Smoker Substance Use Type: None - Medications Home Medications: Home Medications Medication Instructions Recorded Confirmed Last Taken Type Albuterol Sulfate [Ventolin HFA] 2 puff INHALATION Q4HR PRN 08/29/13 09/24/19 Unknown History Amlodipine Besylate [Norvasc] 5 mg PO QDAY 03/27/18 09/24/19 09/06/18 History Divalproex Sodium [Depakote ER] 3,000 mg PO HS 03/27/18 09/24/19 09/06/18 History traMADoL [Ultram 50 MG tab] 50 mg PO Q6HR PRN #12 tablet 08/07/18 09/24/19 09/06/18 Rx Simvastatin [Zocor TAB] 40 mg PO QHS #30 tablet 09/08/18 09/24/19 Unknown Rx Meclizine [Antivert] 25 mg PO Q8H PRN #30 tablet 10/19/18 06/19/19 Unknown Rx ALBUTEROL Inhaler(NF) [VENTOLIN 1 puff IH QID PRN #1 inha 02/03/19 09/24/19 Unknown Rx Inhaler(NF)] HYDROcodone/APAP 5-325 [[place] 1 each PO Q6HR PRN #15 tablet 04/09/19 09/24/19 Unknown Rx 5/325] Meclizine [Antivert] 25 mg PO TID PRN #30 tablet 04/09/19 09/24/19 Unknown Rx Nitroglycerin [Nitrostat] 0.4 mg SL Q5M PRN #30 tab 06/19/19 09/24/19 Unknown Rx Toprol Xl 25 mg PO DAILY 06/19/19 09/24/19 Unknown History traZODone [Desyrel] 1 tab PO HS 06/19/19 09/24/19 Unknown History Cyclobenzaprine [Flexeril 10 MG 10 mg PO QHS PRN #12 tablet 07/23/19 09/24/19 Unknown Rx TAB] Ibuprofen [Motrin 600 MG tab] 600 mg PO Q8H PRN #30 tablet 07/23/19 09/24/19 Unknown Rx ED Physical Exam - General Limitations: No Limitations General appearance: alert, in no apparent distress - Head Head exam: Present: atraumatic, normocephalic - Eye Eye exam: Present: normal appearance - ENT ENT exam: Present: mucous membranes moist - Neck Neck exam: Present: normal inspection - Respiratory Respiratory exam: Present: normal lung sounds bilaterally. Absent: respiratory distress - Cardiovascular Cardiovascular Exam: Present: regular rate, normal rhythm. Absent: systolic murmur, diastolic murmur, rubs, gallop - GI/Abdominal GI/Abdominal exam: Present: soft, normal bowel sounds - Extremities Exam Extremities exam: Present: normal inspection - Back Exam Back exam: Present: normal inspection - Neurological Exam Neurological exam: Present: alert, oriented X3 - Psychiatric Psychiatric exam: Present: normal affect, normal mood - Skin Skin exam: Present: warm, dry, intact, normal color. Absent: rash - Level of Consciousness 1a. Level of Consciousness: alert/keenly responsive - LOC Questions 1b. LOC Questions: answers both correctly - LOC Command 1c. LOC Commands: performs tasks correctly - Best Gaze 2. Best Gaze: normal - Visual 3. Visual: no visual loss - Facial Palsy 4. Facial Palsy: normal symmetrical movement - Motor Arm 5a. Motor Arm Left: drift 5b. Motor Arm Right: drift - Motor Leg 6a. Motor Leg Left: drift 6b. Motor Leg Right: drift - Limb Ataxia 7. Limb Ataxia: absent - Sensory 8. Sensory: normal - Best Language 9. Best Language: no aphasia - Dysarthria 10. Dysarthria: normal - Extinction and Inattention 11. Extinction/Inattention: no abnormality - Scoring Total Score: 4 Stroke Severity: Minor Stroke ED Course Vital Signs 11/05/19 11/05/19 11/05/19 15:13 15:31 16:01 Temperature 98.1 F Pulse Rate 74 73 101 H Respiratory 16 11 L 11 L Rate Blood Pressure 176/80 176/80 Blood Pressure 176/80 [Left] O2 Sat by Pulse 98 98 91 Oximetry 11/05/19 11/05/19 11/05/19 16:23 16:31 17:01 Temperature 98.3 F Pulse Rate 75 70 74 Respiratory 13 17 19 Rate Blood Pressure 163/88 163/94 Blood Pressure 176/80 [Left] O2 Sat by Pulse 99 99 98 Oximetry 11/05/19 11/05/19 11/05/19 17:31 18:01 18:31 Temperature Pulse Rate 67 64 68 Respiratory 17 17 15 Rate Blood Pressure 163/94 150/99 150/99 Blood Pressure [Left] O2 Sat by Pulse 100 99 100 Oximetry 11/05/19 19:57 Temperature Pulse Rate 65 Respiratory 15 Rate Blood Pressure Blood Pressure 140/95 [Left] O2 Sat by Pulse 97 Oximetry ED Medical Decision Making - Lab Data Result diagrams: 11/05/19 15:52 11/05/19 15:52 Labs 11/05/19 11/05/19 11/05/19 15:33 15:52 15:52 WBC 11.2 H RBC 4.73 Hgb 13.3 Hct 41.1 MCV 87 MCH 28 MCHC 32 RDW 15.3 H Plt Count 350 Lymph % (Auto) 38.4 H [place] % (Auto) 6.3 Eos % (Auto) 0.2 Baso % (Auto) 0.8 Lymph # 4.3 [place] # 0.7 Eos # 0.0 Baso # 0.1 Seg Neutrophils % 54.3 Seg Neutrophils # 6.1 Sodium 140 Potassium 3.7 Chloride 98.7 Carbon Dioxide 24 Anion Gap 21 BUN 16 Creatinine 0.8 Estimated GFR > 60 BUN/Creatinine Ratio 20 Glucose 84 POC Glucose 83 Calcium 8.9 Total Bilirubin 0.20 AST 18 ALT 10 Alkaline Phosphatase 67 Ammonia Troponin T < 0.010 Total Protein 7.9 Albumin 4.2 Albumin/Globulin Ratio 1.1 TSH Free T4 Urine Color Urine Turbidity Urine pH Ur Specific [place] Urine Protein Urine Glucose (UA) Urine Ketones Urine Blood Urine Nitrite Urine Bilirubin Urine Urobilinogen Ur Leukocyte Esterase Urine WBC (Auto) Urine RBC (Auto) U Epithel Cells (Auto) Urine Mucus Urine Opiates Screen Urine Methadone Screen Ur Barbiturates Screen Ur Phencyclidine Scrn Ur Amphetamines Screen U Benzodiazepines Scrn Urine Cocaine Screen U Marijuana (THC) Screen Drugs of Abuse Note Plasma/Serum Alcohol 11/05/19 11/05/19 11/05/19 15:52 15:52 15:52 WBC RBC Hgb Hct MCV MCH MCHC RDW Plt Count Lymph % (Auto) [place] % (Auto) Eos % (Auto) Baso % (Auto) Lymph # [place] # Eos # Baso # Seg Neutrophils % Seg Neutrophils # Sodium Potassium Chloride Carbon Dioxide Anion Gap BUN Creatinine Estimated GFR BUN/Creatinine Ratio Glucose POC Glucose Calcium Total Bilirubin AST ALT Alkaline Phosphatase Ammonia 43.0 Troponin T Total Protein Albumin Albumin/Globulin Ratio TSH 4.410 H Free T4 Urine Color Urine Turbidity Urine pH Ur Specific [place] Urine Protein Urine Glucose (UA) Urine Ketones Urine Blood Urine Nitrite Urine Bilirubin Urine Urobilinogen Ur Leukocyte Esterase Urine WBC (Auto) Urine RBC (Auto) U Epithel Cells (Auto) Urine Mucus Urine Opiates Screen Urine Methadone Screen Ur Barbiturates Screen Ur Phencyclidine Scrn Ur Amphetamines Screen U Benzodiazepines Scrn Urine Cocaine Screen U Marijuana (THC) Screen Drugs of Abuse Note Plasma/Serum Alcohol < 0.01 11/05/19 11/05/19 11/05/19 17:00 17:00 17:07 WBC RBC Hgb Hct MCV MCH MCHC RDW Plt Count Lymph % (Auto) [place] % (Auto) Eos % (Auto) Baso % (Auto) Lymph # [place] # Eos # Baso # Seg Neutrophils % Seg Neutrophils # Sodium Potassium Chloride Carbon Dioxide Anion Gap BUN Creatinine Estimated GFR BUN/Creatinine Ratio Glucose POC Glucose Calcium Total Bilirubin AST ALT Alkaline Phosphatase Ammonia Troponin T Total Protein Albumin Albumin/Globulin Ratio TSH 4.620 H Free T4 1.24 Urine Color Straw Urine Turbidity Clear Urine pH 7.0 Ur Specific [place] 1.013 Urine Protein <15 mg/dl Urine Glucose (UA) Neg Urine Ketones Neg Urine Blood Sm Urine Nitrite Neg Urine Bilirubin Neg Urine Urobilinogen < 2.0 Ur Leukocyte Esterase Neg Urine WBC (Auto) < 1.0 Urine RBC (Auto) 3.0 U Epithel Cells (Auto) 2.0 Urine Mucus Few Urine Opiates Screen Presumptive negative Urine Methadone Screen Presumptive negative Ur Barbiturates Screen Presumptive negative Ur Phencyclidine Scrn Presumptive negative Ur Amphetamines Screen Presumptive negative U Benzodiazepines Scrn Presumptive negative Urine Cocaine Screen Presumptive negative U Marijuana (THC) Screen Presumptive negative Drugs of Abuse Note Disclamer Plasma/Serum Alcohol - Medical Decision Making Patient is a 44-year-old F [place] female with history of diabetes who is presenting with extreme fatigue. Patient seems to be falling asleep during our interaction. Initially thought the patient could have hyperkalemia or elevated ammonia level or hypothyroid. Patient is vital signs are within normal limits. Patient's TSH was slightly elevated however free T4 was within normal limits making a myxedema coma unlikely. Did ask about possible depression causing the patient's symptoms she states she is not depressed and had normal he has normal activity. Patient will be discharged from the emergency department to follow with her primary care physician. Found no emergent conditions at this time. Critical care attestation.: If time is entered above; I have spent that time in minutes in the direct care of this critically ill patient, excluding procedure time. ED Disposition Clinical Impression: Fatigue Disposition: DC-01 TO HOME OR SELFCARE Is pt being admited?: No Does the pt Need Aspirin: No Condition: Stable Referrals: PRIMARY CARE, [Primary Care Provider] - 3-5 Days Time of Disposition: 20:33
== END 2019-11-05 21:11 | disposition home or self-care (01) ==
LOC: ED 14:57
DX: R53.83 Other fatigue (principal); I10 Essential (primary) hypertension; E11.9 Type 2 diabetes mellitus without complications; M19.90 Unspecified osteoarthritis, unspecified site; G43.909 Migraine, unspecified, not intractable, without status migrainosus; J45.909 Unspecified asthma, uncomplicated; Z86.2 Personal history of diseases of the blood and blood-forming organs and certain disorders involving the immune mechanism; Z98.51 Tubal ligation status; Z98.890 Other specified postprocedural states; Z79.899 Other long term (current) drug therapy; Z88.0 Allergy status to penicillin; Z91.018 Allergy to other foods
CPT/HCPCS: 36415; 80053; 80307; 81001; 82140; 82962; 84439; 84443; 84484; 85025; 99284; J7030; 80320; G0480

== ENCOUNTER 2020-05-24 12:42 | Emergency (ER) | payer BC ==
[2020-05-24] MEDS ORDERED: diphenhydrAMINE 50 MG/ML VIAL IV ONE (18:22)
[2020-05-24] MEDS ORDERED: BUTALB/ACETAMINOPHEN/CAFFEINE TAB PO ONE (18:22)
[2020-05-24] MEDS ORDERED: METOCLOPRAMIDE 10 MG/2 ML INJ IV ONE (18:22)
--- NOTE | 2020-05-24 18:45 | Emergency Department Report ---
ED General Adult HPI - General Chief complaint: High BP Stated complaint: HBP Time Seen by Provider: 05/24/20 18:04 Source: patient Mode of arrival: Wheelchair Limitations: No Limitations - History of Present Illness Initial comments: The patient presents to the emergency department the chief complaint of elevated blood pressure along with chest pain and headache. Patient states she normally takes losartan with hydrochlorothiazide for her blood pressure but for the last 4 days is been elevated. Patient complains of substernal chest pain has been p resent for 1 day and continuous in nature. Patient also complains of a headache that is been present since Sunday. She describes a headache as throbbing in nature and denies it being the worst headache of her life. -: Gradual Location: head, chest Radiation: non-radiation Severity scale (0 -10): 5 Quality: aching Consistency: constant Improves with: none Worsens with: none Associated Symptoms: denies other symptoms Treatments Prior to Arrival: none - Related Data Home Medications Medication Instructions Recorded Confirmed Last Taken Albuterol Sulfate [Ventolin HFA] 2 puff INHALATION Q4HR PRN 08/29/13 09/24/19 Unknown Amlodipine Besylate [Norvasc] 5 mg PO QDAY 03/27/18 09/24/19 09/06/18 Divalproex Sodium [Depakote ER] 3,000 mg PO HS 03/27/18 09/24/19 09/06/18 Toprol Xl 25 mg PO DAILY 06/19/19 09/24/19 Unknown traZODone [Desyrel] 1 tab PO HS 06/19/19 09/24/19 Unknown Previous Rx's Medication Instructions Recorded Last Taken Type traMADoL [Ultram 50 MG tab] 50 mg PO Q6HR PRN #12 tablet 08/07/18 09/06/18 Rx Simvastatin [Zocor TAB] 40 mg PO QHS #30 tablet 09/08/18 Unknown Rx Meclizine [Antivert] 25 mg PO Q8H PRN #30 tablet 10/19/18 Unknown Rx ALBUTEROL Inhaler(NF) [VENTOLIN 1 puff IH QID PRN #1 inha 02/03/19 Unknown Rx Inhaler(NF)] HYDROcodone/APAP 5-325 [[place] 1 each PO Q6HR PRN #15 tablet 04/09/19 Unknown Rx 5/325] Meclizine [Antivert] 25 mg PO TID PRN #30 tablet 04/09/19 Unknown Rx Nitroglycerin [Nitrostat] 0.4 mg SL Q5M PRN #30 tab 06/19/19 Unknown Rx Cyclobenzaprine [Flexeril 10 MG 10 mg PO QHS PRN #12 tablet 07/23/19 Unknown Rx TAB] Ibuprofen [Motrin 600 MG tab] 600 mg PO Q8H PRN #30 tablet 07/23/19 Unknown Rx Butalb/Acetamin/Caff 50-325-40 1 tab PO Q6HR PRN #24 tab 05/24/20 Unknown Rx [Fioricet] Allergies Allergy/AdvReac Type Severity Reaction Status Date / Time hydromorphone [From Dilaudid] Allergy Hives Verified 05/24/20 13:30 Penicillins Allergy Rash Verified 05/24/20 13:27 Tomato Allergy Hives Uncoded 07/21/16 22:52 ED Review of Systems ROS: Stated complaint: HBP Other details as noted in HPI Constitutional: denies: chills, fever Eyes: denies: eye pain, eye discharge, vision change ENT: denies: ear pain, throat pain Respiratory: denies: cough, shortness of breath, wheezing Cardiovascular: chest pain. denies: palpitations Endocrine: no symptoms reported Gastrointestinal: denies: abdominal pain, nausea, diarrhea Genitourinary: denies: urgency, dysuria, discharge Musculoskeletal: denies: back pain, joint swelling, arthralgia Skin: denies: rash, lesions Neurological: headache. denies: weakness, paresthesias Psychiatric: denies: anxiety, depression Hematological/Lymphatic: denies: easy bleeding, easy bruising ED Past Medical Hx - Past Medical History Hx Hypertension: Yes Hx Heart Attack/AMI: No Hx Congestive Heart Failure: No Hx Diabetes: Yes Hx Deep Vein Thrombosis: No Hx Pulmonary Embolism: No Hx Liver Disease: No Hx Arthritis: Yes Hx Headaches / Migraines: Yes Hx Seizures: Yes Hx Asthma: Yes Hx COPD: No Hx Tuberculosis: No Hx Dementia: No Hx HIV: No Additional medical history: anemia, svt, endometriosis, BOILS - Surgical History Hx Coronary Stent: No Hx Pacemaker: No Hx Internal Defibrillator: No Additional Surgical History: hernia, tubal ligation, right knee surgery, heart ablation. right shoulder dislocation - Social History Smoking Status: Never Smoker Substance Use Type: None - Medications Home Medications: Home Medications Medication Instructions Recorded Confirmed Last Taken Type Albuterol Sulfate [Ventolin HFA] 2 puff INHALATION Q4HR PRN 08/29/13 09/24/19 Unknown History Amlodipine Besylate [Norvasc] 5 mg PO QDAY 03/27/18 09/24/19 09/06/18 History Divalproex Sodium [Depakote ER] 3,000 mg PO HS 03/27/18 09/24/19 09/06/18 History traMADoL [Ultram 50 MG tab] 50 mg PO Q6HR PRN #12 tablet 08/07/18 09/24/19 09/06/18 Rx Simvastatin [Zocor TAB] 40 mg PO QHS #30 tablet 09/08/18 09/24/19 Unknown Rx Meclizine [Antivert] 25 mg PO Q8H PRN #30 tablet 10/19/18 06/19/19 Unknown Rx ALBUTEROL Inhaler(NF) [VENTOLIN 1 puff IH QID PRN #1 inha 02/03/19 09/24/19 Unknown Rx Inhaler(NF)] HYDROcodone/APAP 5-325 [[place] 1 each PO Q6HR PRN #15 tablet 04/09/19 09/24/19 Unknown Rx 5/325] Meclizine [Antivert] 25 mg PO TID PRN #30 tablet 04/09/19 09/24/19 Unknown Rx Nitroglycerin [Nitrostat] 0.4 mg SL Q5M PRN #30 tab 06/19/19 09/24/19 Unknown Rx Toprol Xl 25 mg PO DAILY 06/19/19 09/24/19 Unknown History traZODone [Desyrel] 1 tab PO HS 06/19/19 09/24/19 Unknown History Cyclobenzaprine [Flexeril 10 MG 10 mg PO QHS PRN #12 tablet 07/23/19 09/24/19 U nknown Rx TAB] Ibuprofen [Motrin 600 MG tab] 600 mg PO Q8H PRN #30 tablet 07/23/19 09/24/19 Unknown Rx Butalb/Acetamin/Caff 50-325-40 1 tab PO Q6HR PRN #24 tab 05/24/20 Unknown Rx [Fioricet] ED Physical Exam - General Limitations: No Limitations General appearance: alert, in no apparent distress - Head Head exam: Present: atraumatic, normocephalic - Eye Eye exam: Present: normal appearance, PERRL, EOMI - ENT ENT exam: Present: mucous membranes moist - Neck Neck exam: Present: normal inspection - Respiratory Respiratory exam: Present: normal lung sounds bilaterally. Absent: respiratory distress - Cardiovascular Cardiovascular Exam: Present: normal rhythm, tachycardia. Absent: systolic murmur, diastolic murmur, rubs, gallop - GI/Abdominal GI/Abdominal exam: Present: soft, normal bowel sounds. Absent: distended, tenderness - Extremities Exam Extremities exam: Present: normal inspection - Back Exam Back exam: Present: normal inspection - Neurological Exam Neurological exam: Present: alert, oriented X3, CN II-XII intact. Absent: motor sensory deficit - Psychiatric Psychiatric exam: Present: normal affect, normal mood - Skin Skin exam: Present: warm, dry, intact, normal color. Absent: rash ED Course Vital Signs 05/24/20 05/24/20 05/24/20 13:30 17:52 17:58 Temperature 98.0 F 98.2 F Pulse Rate 111 H 72 Respiratory 20 18 Rate Blood Pressure 196/121 194/103 Blood Pressure [Right] O2 Sat by Pulse 100 100 100 Oximetry 05/24/20 05/24/20 05/24/20 18:00 18:01 18:16 Temperature 98.4 F Pulse Rate 72 75 Respiratory 18 14 Rate Blood Pressure 190/105 190/105 Blood Pressure 194/103 [Right] O2 Sat by Pulse 98 100 100 Oximetry 05/24/20 05/24/20 05/24/20 18:30 18:46 19:00 Temperature Pulse Rate 79 74 80 Respiratory 20 14 10 L Rate Blood Pressure 190/105 190/105 190/105 Blood Pressure [Right] O2 Sat by Pulse 100 99 100 Oximetry 05/24/20 05/24/20 05/24/20 19:14 19:16 19:19 Temperature Pulse Rate 67 89 Respiratory 18 18 Rate Blood Pressure 190/105 164/99 Blood Pressure [Right] O2 Sat by Pulse 100 Oximetry 05/24/20 05/24/20 05/24/20 19:30 19:46 20:00 Temperature Pulse Rate 70 71 70 Respiratory 18 18 19 Rate Blood Pressure 190/105 190/105 140/79 Blood Pressure [Right] O2 Sat by Pulse 97 99 97 Oximetry 05/24/20 20:16 Temperature Pulse Rate 72 Respiratory 17 Rate Blood Pressure 140/79 Blood Pressure [Right] O2 Sat by Pulse 98 Oximetry ED Medical Decision Making - Lab Data Result diagrams: 05/24/20 18:44 05/24/20 18:44 Lab Results 05/24/20 05/24/20 05/24/20 Range/Units 18:44 18:44 18:44 WBC 6.7 (4.5-11.0) K/mm3 RBC 4.68 (3.65-5.03) M/mm3 Hgb 12.8 (10.1-14.3) gm/dl Hct 39.1 (30.3-42.9) % MCV 83 (79-97) fl MCH 27 L (28-32) pg MCHC 33 (30-34) % RDW 14.9 (13.2-15.2) % Plt Count 374 (140-440) K/mm3 Lymph % (Auto) 40.0 H (13.4-35.0) % [place] % (Auto) 7.6 H (0.0-7.3) % Eos % (Auto) 0.4 (0.0-4.3) % Baso % (Auto) 0.4 (0.0-1.8) % Lymph # 2.7 (1.2-5.4) K/mm3 [place] # 0.5 (0.0-0.8) K/mm3 Eos # 0.0 (0.0-0.4) K/mm3 Baso # 0.0 (0.0-0.1) K/mm3 Seg Neutrophils % 51.6 (40.0-70.0) % Seg Neutrophils # 3.5 (1.8-7.7) K/mm3 PT 11.8 L (12.2-14.9) Sec. INR 0.86 L (0.87-1.13) APTT 31.8 (24.2-36.6) Sec. Sodium 138 (137-145) mmol/L Potassium 3.4 L (3.6-5.0) mmol/L Chloride 98.0 (98-107) mmol/L Carbon Dioxide 26 (22-30) mmol/L Anion Gap 17 mmol/L BUN 9 (7-17) mg/dL Creatinine 0.7 (0.6-1.2) mg/dL Estimated GFR > 60 ml/min BUN/Creatinine Ratio 13 % Glucose 99 (65-100) mg/dL Calcium 9.3 (8.4-10.2) mg/dL Total Bilirubin 0.30 (0.1-1.2) mg/dL AST 13 (5-40) units/L ALT 7 (7-56) units/L Alkaline Phosphatase 93 (35-129) units/L Troponin T < 0.010 (0.00-0.029) ng/mL Total Protein 7.7 (6.3-8.2) g/dL Albumin 4.3 (3.9-5) g/dL Albumin/Globulin Ratio 1.3 % Urine Color (Yellow) Urine Turbidity (Clear) Urine pH (5.0-7.0) Ur Specific [place] (1.003-1.030) Urine Protein (Negative) mg/dL Urine Glucose (UA) (Negative) mg/dL Urine Ketones (Negative) mg/dL Urine Blood (Negative) Urine Nitrite (Negative) Urine Bilirubin (Negative) Urine Urobilinogen (<2.0) mg/dL Ur Leukocyte Esterase (Negative) Urine WBC (Auto) (0.0-6.0) /HPF Urine RBC (Auto) (0.0-6.0) /HPF U Epithel Cells (Auto) (0-13.0) /HPF Urine Mucus /HPF Urine Opiates Screen Urine Methadone Screen Ur Barbiturates Screen Ur Phencyclidine Scrn Ur Amphetamines Screen U Benzodiazepines Scrn Urine Cocaine Screen U Marijuana (THC) Screen Drugs of Abuse Note 05/24/20 05/24/20 Range/Units 19:19 19:19 WBC (4.5-11.0) K/mm3 RBC (3.65-5.03) M/mm3 Hgb (10.1-14.3) gm/dl Hct (30.3-42.9) % MCV (79-97) fl MCH (28-32) pg MCHC (30-34) % RDW (13.2-15.2) % Plt Count (140-440) K/mm3 Lymph % (Auto) (13.4-35.0) % [place] % (Auto) (0.0-7.3) % Eos % (Auto) (0.0-4.3) % Baso % (Auto) (0.0-1.8) % Lymph # (1.2-5.4) K/mm3 [place] # (0.0-0.8) K/mm3 Eos # (0.0-0.4) K/mm3 Baso # (0.0-0.1) K/mm3 Seg Neutrophils % (40.0-70.0) % Seg Neutrophils # (1.8-7.7) K/mm3 PT (12.2-14.9) Sec. INR (0.87-1.13) APTT (24.2-36.6) Sec. Sodium (137-145) mmol/L Potassium (3.6-5.0) mmol/L Chloride (98-107) mmol/L Carbon Dioxide (22-30) mmol/L Anion Gap mmol/L BUN (7-17) mg/dL Creatinine (0.6-1.2) mg/dL Estimated GFR ml/min BUN/Creatinine Ratio % Glucose (65-100) mg/dL Calcium (8.4-10.2) mg/dL Total Bilirubin (0.1-1.2) mg/dL AST (5-40) units/L ALT (7-56) units/L Alkaline Phosphatase (35-129) units/L Troponin T (0.00-0.029) ng/mL Total Protein (6.3-8.2) g/dL Albumin (3.9-5) g/dL Albumin/Globulin Ratio % Urine Color Yellow (Yellow) Urine Turbidity Clear (Clear) Urine pH 5.0 (5.0-7.0) Ur Specific [place] 1.018 (1.003-1.030) Urine Protein <15 mg/dl (Negative) mg/dL Urine Glucose (UA) Neg (Negative) mg/dL Urine Ketones Neg (Negative) mg/dL Urine Blood Neg (Negative) Urine Nitrite Neg (Negative) Urine Bilirubin Neg (Negative) Urine Urobilinogen < 2.0 (<2.0) mg/dL Ur Leukocyte Esterase Tr (Negative) Urine WBC (Auto) 4.0 (0.0-6.0) /HPF Urine RBC (Auto) 3.0 (0.0-6.0) /HPF U Epithel Cells (Auto) 4.0 (0-13.0) /HPF Urine Mucus Few /HPF Urine Opiates Screen Negative Urine Methadone Screen Negative Ur Barbiturates Screen Negative Ur Phencyclidine Scrn Negative Ur Amphetamines Screen Negative U Benzodiazepines Scrn Negative Urine Cocaine Screen Negative U Marijuana (THC) Screen Negative Drugs of Abuse Note Disclamer - EKG Data -: EKG Interpreted by Me EKG shows normal: sinus rhythm Rate: normal - Radiology Data Radiology results: report reviewed - Medical Decision Making Patient had relief of her headache with medications given Discussed results with patient Discussed the need for the patient to follow-up with her primary care physician for BP management Critical care attestation.: If time is entered above; I have spent that time in minutes in the direct care of this critically ill patient, excluding procedure time. ED Disposition Clinical Impression: Hypertension, Headache, Nonspecific chest pain Disposition: DC-01 TO HOME OR SELFCARE Is pt being admited?: No Does the pt Need Aspirin: No Condition: Stable Instructions: Hypertension (ED), Chest Pain (ED) Additional Instructions: return if worse Please follow up with your pcp for bp med management Referrals: AVEL HOWELL MD [Staff Physician] - 3-5 Days Time of Disposition: 20:50
--- NOTE | 2020-05-24 19:06 | Cat Scan Report ---
CT head/brain wo con INDICATION / CLINICAL INFORMATION: 45 years Female; headache. TECHNIQUE: Routine CT head without contrast. All CT scans at this location are performed using CT dos e reduction for ALARA by means of automated exposure control. Significant streak artifact noted. COMPARISON: 04/08/2019 FINDINGS: BRAIN / INTRACRANIAL CONTENTS: No acute hemorrhage, mass effect, midline shift, hydrocephalus, or acu te, large territorial infarct. No chronic infarct or atrophy appreciated. There are minimal areas of decreased attenuation in the white matter of the cerebral hemispheres. The se are nonspecific findings and may be related to microangiopathy (hypertension, diabetes, atheroscle rosis), given the patient's age. Findings may be artifactual. Also, it is difficult to evaluate the p osterior fossa because of streak artifact. CRANIOCERVICAL JUNCTION: No significant abnormality. ORBITS: No significant abnormality of visualized orbits. SINUSES / MASTOIDS: No significant abnormality in the visualized paranasal sinuses or mastoid air chyna ls. ADDITIONAL FINDINGS: None. IMPRESSION: 1. No focal mass, hemorrhage, hydrocephalus, or acute, large territorial infarct appreciated on this limited exam. Signer Name: Chris Parker MD, III Signed: 05/24/2020 7:01 PM Workstation Name: [id number]
[2020-05-24 19:17] LABS: Basophils % (Auto) 0.4 % (0.0-1.8); Eosinophils % (Auto) 0.4 % (0.0-4.3); Hematocrit 39.1 % (30.3-42.9); Hemoglobin 12.8 gm/dl (10.1-14.3); Lymphocytes # (Auto) 2.7 K/mm3 (1.2-5.4); Mean Corpuscular HGB Conc 33 % (30-34); Mean Corpuscular Volume 83 fl (79-97); Monocytes # (Auto) 0.5 K/mm3 (0.0-0.8); Monocytes % (Auto) 7.6 % (0.0-7.3); Platelet Count 374 K/mm3 (140-440); Red Blood Count 4.68 M/mm3 (3.65-5.03); Red Cell Distribution Width 14.9 % (13.2-15.2)
[2020-05-24 19:25] LABS: INR 0.86 (0.87-1.13)
[2020-05-24 19:26] LABS: Partial Thromboplastin Time 31.8 Sec. (24.2-36.6)
[2020-05-24 19:38] LABS: Bilirubin,Urine NEG (Negative); Blood,Urine NEG (Negative); Color,Urine Yellow (Yellow); Mucus,Urine FEW /HPF; Protein,Urine <15 mg/dL mg/dL (Negative); Urobilinogen,Urine < 2.0 mg/dL (<2.0)
[2020-05-24 19:46] LABS: Amphetamine Screen,Urine Negative; Benzodiazepines Screen,Urine Negative; Cannabinoid Screen,Urine Negative; Cocaine Screen,Urine Negative; Methadone Screen,Urine Negative; Opiate Screen,Urine Negative
[2020-05-24 19:50] LABS: Alanine Aminotransferase 7 units/L (7-56); Albumin 4.3 g/dL (3.9-5); Blood Urea Nitrogen 9 mg/dL (7-17); Calcium 9.3 mg/dL (8.4-10.2); Hemolysis Index 14
[2020-05-24 20:02] LABS: BUN/Creatinine Ratio 13
--- NOTE | 2020-05-24 20:23 | XRay Report ---
CHEST 1 VIEW INDICATION / CLINICAL INFORMATION: Chest Pain. COMPARISON: 10/27/2019 FINDINGS: SUPPORT DEVICES: None. HEART / MEDIASTINUM: No significant abnormality. LUNGS / PLEURA: No significant pulmonary or pleural abnormality. No pneumothorax. ADDITIONAL FINDINGS: No significant additional findings. IMPRESSION: 1. No acute findings. No significant interval change Signer Name: Kee Almanza MD Signed: 05/24/2020 8:19 PM Workstation Name: [id number]
[2020-05-24 21:19] VITALS: BP 154/91
== END 2020-05-24 21:42 | disposition home or self-care (01) ==
LOC: ED 12:42
DX: R07.89 Other chest pain (principal); R51 Headache; I10 Essential (primary) hypertension; E11.9 Type 2 diabetes mellitus without complications; M19.91 Primary osteoarthritis, unspecified site; J45.909 Unspecified asthma, uncomplicated; Z98.51 Tubal ligation status; Z98.890 Other specified postprocedural states; Z79.1 Long term (current) use of non-steroidal anti-inflammatories (NSAID); Z79.899 Other long term (current) drug therapy; Z88.0 Allergy status to penicillin; Z88.8 Allergy status to other drugs, medicaments and biological substances; Z91.018 Allergy to other foods
CPT/HCPCS: 36415; 70450; 71045; 80053; 80307; 81001; 84484; 85025; 85610; 85730; 93005; 96374; 96375; 99285; J1200; J2765

== ENCOUNTER 2020-08-03 19:46 | Emergency (ER) | payer BC ==
[2020-08-03] MEDS ORDERED: cloNIDine 0.2 MG TAB PO ONE (19:58)
[2020-08-03 20:06] VITALS: BP 218/128
== END 2020-08-03 20:05 | disposition left against medical advice (07) ==
LOC: ED 19:46
DX: I10 Essential (primary) hypertension (principal); Z53.21 Procedure and treatment not carried out due to patient leaving prior to being seen by health care provider

== ENCOUNTER 2020-08-12 12:53 | Outpatient (CLI) | payer BC ==
--- NOTE | 2020-08-13 08:36 | Mammography Report ---
DIGITAL SCREENING MAMMOGRAM WITH CAD, 08/12/2020 CLINICAL INFORMATION / INDICATION: Routine screening mammography. TECHNIQUE: Digital bilateral 2D mammography was obtained in the craniocaudal and mediolateral obliqu e projections. This examination was interpreted with the benefit of Computer-Aided Detection analysis . COMPARISON: None available. FINDINGS: Breast Density: There are scattered areas of fibroglandular density. No dominant mass, suspicious calcifications, or architectural distortion in either breast. IMPRESSION: No mammographic evidence of malignancy. Follow up recommendation: Routine yearly BI-RADS Category 1: Negative. A "normal" or negative report should not discourage follow up or biopsy of a clinically significant f inding. A written summary of these findings will be mailed to the patient. The patient will be entered into a mammography reporting system which will generate a reminder letter for the patient's next appointmen t at the appropriate interval. The [employer] recommends yearly mammograms starting at age 40 and continuing as l jagdish as a woman is in good health. Breast MRI is recommended for women with an approximate 20-25% or greater lifetime risk of breast cancer, including women with a strong family history of breast or ova radha cancer or who have been treated for Hodgkin's disease. Signer Name: Bhavin Moreno MD Signed: 08/13/2020 8:32 AM Workstation Name: [email or web address]
== END 2020-08-12 12:54 | disposition home or self-care (01) ==
LOC: MAMMO 12:53
PROVIDERS: ATTEND Internal Medicine
DX: Z12.31 Encounter for screening mammogram for malignant neoplasm of breast (principal)
CPT/HCPCS: 77067

== ENCOUNTER 2020-10-21 13:36 | Outpatient (CLI) | payer BC ==
--- NOTE | 2020-10-21 15:52 | XRay Report ---
LUMBAR SPINE 5 VIEWS INDICATION: Back pain. COMPARISON: Lumbar spine series from 08/07/2018. FINDINGS: VERTEBRAE: No acute fracture. There is minimal levoscoliosis. DISC SPACES: No significant abnormality. FACET JOINTS: No significant abnormality. SOFT TISSUES: No significant abnormality. ADDITIONAL FINDINGS: No additional significant findings. IMPRESSION: 1. No acute findings. 2. Similar minimal levoscoliosis of the lumbar spine. Signer Name: Bhavin Moreno MD Signed: 10/21/2020 3:48 PM Workstation Name: [id number]
== END 2020-10-21 13:37 | disposition home or self-care (01) ==
LOC: XRAY 13:36
PROVIDERS: ATTEND Internal Medicine
DX: M41.86 Other forms of scoliosis, lumbar region (principal)
CPT/HCPCS: 72110

== ENCOUNTER 2020-10-29 17:57 | Emergency (ER) | payer BC ==
[2020-10-29] MEDS ORDERED: cloNIDine 0.2 MG TAB PO ONE (21:11)
[2020-10-29] MEDS ORDERED: LORazepam 2 MG/ML VIAL IV ONE ×2 (21:39→22:07)
--- NOTE | 2020-10-29 22:01 | Emergency Department Report ---
ED Headache HPI - General Chief Complaint: Headache Stated Complaint: HIGH BLOOD PRESSURE Time Seen by Provider: 10/29/20 21:29 Source: patient Exam Limitations: no limitations - History of Present Illness Initial Comments: Patient is a 45-year-old female that presents emergency room with complaints of headache and elevated blood pressure. Patient also complains of dizziness. Patient states her headache and dizziness better with rest. Patient states that headaches dizziness are also better with her blood pressure medication. Patient states her blood pressure elevation and her headache and dizziness started last night at 8 PM. Patient dates her symptoms are worsening. Patient states she is compliant with all of her blood pressure medication. Patient states her blood pressure prior to leaving her house was 214/114. Patient states she called her primary care and they told her to come to the hospital. Patient states when she arrived here was 250/125. Patient states is also feeling anxious because of the headache and blood pressure. Patient states her headache is a 10 out of 10. Patient dates her headache is global. Patient denies blurry vision. Patient denies neck stiffness. Patient denies fever and chills. Patient denies recent travel. Patient denies recent international travel. Patient denies exposure to the novel coronavirus. Patient denies sick contacts. Patient denies fever and chills. Patient denies cough. Patient denies diarrhea. Patient denies coming in contact with anybody with symptoms of the novel coronavirus. Timing/Duration: constant, increasing Quality: severe, throbbing Head Injury Location: global Recent Head Trauma: no recent headache/trauma Modifying Factors: improves with: medication, movement, rest Associated Symptoms: denies symptoms. denies: confusion, fatigue, facial pain, fever/chills, flushing, loss of consciousness, nausea/vomiting, nasal congestion , nasal drainage, numbness in legs/feet, seizures, sinus infection, stiff neck, vision changes, weakness Allergies/Adverse Reactions: Allergies hydromorphone [From Dilaudid] Allergy (Verified 05/24/20 13:30) Hives Penicillins Allergy (Verified 05/24/20 13:27) Rash Tomato Allergy (Uncoded 07/21/16 22:52) Hives Home Medications: Ambulatory Orders Albuterol Sulfate [Ventolin HFA] 2 puff INHALATION Q4HR PRN 08/29/13 Amlodipine Besylate [Norvasc] 5 mg PO QDAY 03/27/18 Divalproex Sodium [Depakote ER] 3,000 mg PO HS 03/27/18 traMADoL [Ultram 50 MG tab] 50 mg PO Q6HR PRN #12 tablet 08/07/18 Simvastatin [Zocor TAB] 40 mg PO QHS #30 tablet 09/08/18 Meclizine [Antivert] 25 mg PO Q8H PRN #30 tablet 10/19/18 ALBUTEROL Inhaler(NF) [VENTOLIN Inhaler(NF)] 1 puff IH QID PRN #1 inha 02/03/19 HYDROcodone/APAP 5-325 [[place] 5/325] 1 each PO Q6HR PRN #15 tablet 04/09/19 Meclizine [Antivert] 25 mg PO TID PRN #30 tablet 04/09/19 Nitroglycerin [Nitrostat] 0.4 mg SL Q5M PRN #30 tab 06/19/19 Toprol Xl 25 mg PO DAILY 06/19/19 traZODone [Desyrel] 1 tab PO HS 06/19/19 Cyclobenzaprine [Flexeril 10 MG TAB] 10 mg PO QHS PRN #12 tablet 07/23/19 Ibuprofen [Motrin 600 MG tab] 600 mg PO Q8H PRN #30 tablet 07/23/19 Butalb/Acetamin/Caff 50-325-40 [Fioricet] 1 tab PO Q6HR PRN #24 tab 05/24/20 Metoprolol Xl [Metoprolol SUCCINATE ER TAB] 50 mg PO BID 60 Days #30 tablet 10/30/20 ED Review of Systems ROS: Stated complaint: HIGH BLOOD PRESSURE Other details as noted in HPI Constitutional: denies: chills, fever Eyes: denies: eye pain, eye discharge, vision change ENT: denies: ear pain, throat pain Respiratory: denies: cough, shortness of breath, wheezing Cardiovascular: denies: chest pain, palpitations Endocrine: no symptoms reported Gastrointestinal: denies: abdominal pain, nausea, diarrhea Genitourinary: denies: urgency, dysuria, discharge Musculoskeletal: denies: back pain, joint swelling, arthralgia Skin: denies: rash, lesions Neurological: as per HPI, headache. denies: weakness, paresthesias Psychiatric: anxiety. denies: depression Hematological/Lymphatic: denies: easy bleeding, easy bruising ED Past Medical Hx - Past Medical History Previous Medical History?: Yes Hx Hypertension: Yes Hx Heart Attack/AMI: No Hx Congestive Heart Failure: No Hx Diabetes: Yes Hx Deep Vein Thrombosis: No Hx Pulmonary Embolism: No Hx Liver Disease: No Hx Arthritis: Yes Hx Headaches / Migraines: Yes Hx Seizures: Yes Hx Asthma: Yes Hx COPD: No Hx Tuberculosis: No Hx Dementia: No Hx HIV: No Additional medical history: anemia, svt, endometriosis, BOILS - Surgical History Past Surgical History?: Yes Hx Coronary Stent: No Hx Pacemaker: No Hx Internal Defibrillator: No Additional Surgical History: hernia, tubal ligation, right knee surgery, heart ablation. right shoulder dislocation - Family History Family history: no significant - Social History Smoking Status: Never Smoker Substance Use Type: None - Medications Home Medications: Home Medications Medication Instructions Recorded Confirmed Last Taken Type Albuterol Sulfate [Ventolin HFA] 2 puff INHALATION Q4HR PRN 08/29/13 09/24/19 Unknown History Amlodipine Besylate [Norvasc] 5 mg PO QDAY 03/27/18 09/24/19 09/06/18 History Divalproex Sodium [Depakote ER] 3,000 mg PO HS 03/27/18 09/24/19 09/06/18 History traMADoL [Ultram 50 MG tab] 50 mg PO Q6HR PRN #12 tablet 08/07/18 09/24/19 09/06/18 Rx Simvastatin [Zocor TAB] 40 mg PO QHS #30 tablet 09/08/18 09/24/19 Unknown Rx Meclizine [Antivert] 25 mg PO Q8H PRN #30 tablet 10/19/18 06/19/19 Unknown Rx ALBUTEROL Inhaler(NF) [VENTOLIN 1 puff IH QID PRN #1 inha 02/03/19 09/24/19 Unknown Rx Inhaler(NF)] HYDROcodone/APAP 5-325 [[place] 1 each PO Q6HR PRN #15 tablet 04/09/19 09/24/19 Unknown Rx 5/325] Meclizine [Antivert] 25 mg PO TID PRN #30 tablet 04/09/19 09/24/19 Unknown Rx Nitroglycerin [Nitrostat] 0.4 mg SL Q5M PRN #30 tab 06/19/19 09/24/19 Unknown Rx Toprol Xl 25 mg PO DAILY 06/19/19 09/24/19 Unknown History traZODone [Desyrel] 1 tab PO HS 06/19/19 09/24/19 Unknown History Cyclobenzaprine [Flexeril 10 MG 10 mg PO QHS PRN #12 tablet 07/23/19 09/24/19 Unknown Rx TAB] Ibuprofen [Motrin 600 MG tab] 600 mg PO Q8H PRN #30 tablet 07/23/19 09/24/19 Unknown Rx Butalb/Acetamin/Caff 50-325-40 1 tab PO Q6HR PRN #24 tab 05/24/20 Unknown Rx [Fioricet] Metoprolol Xl [Metoprolol 50 mg PO BID 60 Days #30 tablet 10/30/20 Unknown Rx SUCCINATE ER TAB] ED Physical Exam - General Limitations: No Limitations General appearance: alert, in no apparent distress - Head Head exam: Present: atraumatic, normocephalic - Eye Eye exam: Present: normal appearance, PERRL Pupils: Present: normal accommodation - ENT ENT exam: Present: mucous membranes moist - Neck Neck exam: Present: normal inspection, full ROM. Absent: tenderness, meningismus - Respiratory Respiratory exam: Present: normal lung sounds bilaterally. Absent: respiratory distress, wheezes, rales - Cardiovascular Cardiovascular Exam: Present: regular rate, normal rhythm, normal heart sounds. Absent: systolic murmur, diastolic murmur, rubs, gallop - GI/Abdominal GI/Abdominal exam: Present: soft, normal bowel sounds. Absent: distended, tenderness, guarding - Extremities Exam Extremities exam: Present: normal inspection - Back Exam Back exam: Present: normal inspection - Neurological Exam Neurological exam: Present: alert, oriented X3 - Psychiatric Psychiatric exam: Present: normal affect, normal mood - Skin Skin exam: Present: warm, dry, intact, normal color. Absent: rash ED Course Vital Signs 10/29/20 10/29/20 10/29/20 18:01 21:01 21:30 Temperature 98.4 F Pulse Rate 80 75 Respiratory 18 20 18 Rate Blood Pressure Blood Pressure 225/125 175/94 [Right] O2 Sat by Pulse 100 95 Oximetry 10/29/20 10/29/20 10/29/20 21:32 22:01 23:01 Temperature Pulse Rate 92 H 69 73 Respiratory 15 20 Rate Blood Pressure 192/99 Blood Pressure 161/90 140/83 [Right] O2 Sat by Pulse 95 97 Oximetry - Reevaluation(s) Reevaluation #1: After initial evaluation, the patient complained of anxiety. Patient will be given 0.5 Ativan. 10/29/20 21:29 Reevaluation #2: Patient states that her anxiety has resolved. Patient states her headache is resolved. Patient states he is feeling much better. Patient's labs are pending. 10/29/20 23:29 Reevaluation #3: Patient is resting comfortably in bed. Patient states she is feeling much better. Patient states she is taking 50 mg of metoprolol daily. I will increase the metoprolol to 50 twice daily. I discussed all results and clinical findings with patient. I discussed plan of care with patient. Patient agrees with plan of care. Patient is stable for discharge. Patient will be discharged home. Patient given discharge instructions. Patient voiced understanding of discharge instructions. 10/30/20 00:41 ED Medical Decision Making - Lab Data Result diagrams: 10/29/20 23:19 10/29/20 23:19 - Radiology Data Radiology results: report reviewed CT head without contrast INDICATION : Headache. Hypertension. TECHNIQUE: Axial imaging performed from the skull apex through the skull base without the use of contrast. All CT examinations performed at this facility utilize dose modulation, iterative reconstruction or weight-based dosing, when appropriate, to reduce radiation dose to as low as reasonably achievable. COMPARISON: None FINDINGS: No acute intracranial hemorrhage or parenchymal abnormality. Ventricles are normal in size and appear symmetric. Soft tissues including the orbits appear normal. No acute osseous abnormality. Sinuses and mastoid air cells are clear. IMPRESSION: No acute abnormality. - Medical Decision Making Patient is a 45-year-old female presents emergency room complaints of dizziness, headache and elevated blood pressure. Patient that she is compliant with her medication. Patient was given clonidine early in her ER stay and her blood pressure responded well. Patient also complained of anxiety and patient was given 0.5 mg of Ativan and the patient responded well. Patient resting comfortably in the ER. Patient headache and symptoms resolved with clonidine and Ativan. Patient had labs done were essentially unremarkable. Patient is stable for discharge. Patient instructed to follow-up with her primary care for further management of her blood pressure. Patient to eat a low-salt diet. - Differential Diagnosis Headache, elevated blood pressure, increase salt intake, anxiety, Critical Care Time: Yes Critical care time in (mins) excluding proc time.: 35 Critical care attestation.: If time is entered above; I have spent that time in minutes in the direct care of this critically ill patient, excluding procedure time. Critical Care Time: 35 minutes ED Disposition Clinical Impression: Dizziness, Anxiety, Hypertensive urgency, Hypertension, benign Headache Qualifiers: Headache type: unspecified Headache chronicity pattern: acute headache Intractability: not intractable Qualified Code(s): R51.9 - Headache, unspecified Disposition: DC-01 TO HOME OR SELFCARE Is pt being admited?: No Does the pt Need Aspirin: No Condition: Stable Instructions: Hypertension (ED), Hypertension, Adult, [id number], Dizziness, [id number], Hypertension, Adult, Managing Your Hypertension Additional Instructions: Patient to follow-up with primary care in 2 to 3 days. Patient to eat a low- salt diet. Patient to eat a heart healthy diet. Patient to monitor blood pressure at home. Patient to keep a blood pressure log. Patient to take blood pressure log to all follow-up appointments. Patient to rest. Patient to increase water. Patient to avoid strenuous exercise or heavy lifting until cleared by primary care. Patient to take Tylenol as needed for pain. Patient to continue blood pressure medications. Patient to continue all medications.. Patient to return to the ER if condition worsens, changes or new symptoms arise. Prescriptions: Metoprolol Xl [Metoprolol SUCCINATE ER TAB] 50 mg PO BID 60 Days #30 tablet Referrals: AVEL HOWELL MD [Primary Care Provider] - 2-3 Days Time of Disposition: 00:53
--- NOTE | 2020-10-29 22:13 | Cat Scan Report ---
CT head without contrast INDICATION : Headache. Hypertension. TECHNIQUE: Axial imaging performed from the skull apex through the skull base without the use of con trast. All CT examinations performed at this facility utilize dose modulation, iterative reconstruct ion or weight-based dosing, when appropriate, to reduce radiation dose to as low as reasonably achiev able. COMPARISON: None FINDINGS: No acute intracranial hemorrhage or parenchymal abnormality. Ventricles are normal in si ze and appear symmetric. Soft tissues including the orbits appear normal. No acute osseous abnorm ality. Sinuses and mastoid air cells are clear. IMPRESSION: No acute abnormality. Signer Name: Real Jonas MD Signed: 10/29/2020 10:09 PM Workstation Name: [id number]
[2020-10-29] MEDS ORDERED: LORazepam 2 MG/ML VIAL IM ONE (22:15)
[2020-10-30 00:07] LABS: Hematocrit 33.7 % (30.3-42.9); Hemoglobin 11.2 gm/dl (10.1-14.3); Mean Corpuscular HGB Conc 33 % (30-34); Mean Corpuscular Volume 83 fl (79-97); Platelet Count 353 K/mm3 (140-440); Red Blood Count 4.06 M/mm3 (3.65-5.03); Red Cell Distribution Width 15.8 % (13.2-15.2)
[2020-10-30 00:27] LABS: Alanine Aminotransferase 7 units/L (7-56); Albumin 3.8 g/dL (3.9-5); Blood Urea Nitrogen 12 mg/dL (7-17); Calcium 8.9 mg/dL (8.4-10.2); Hemolysis Index 3
[2020-10-30 00:38] LABS: BUN/Creatinine Ratio 17
[2020-10-30 01:03] VITALS: BP 155/91
== END 2020-10-30 01:25 | disposition home or self-care (01) ==
LOC: ED 17:57
DX: R51.9 Headache, unspecified (principal); R42 Dizziness and giddiness; F41.9 Anxiety disorder, unspecified; I10 Essential (primary) hypertension; E11.9 Type 2 diabetes mellitus without complications; M19.91 Primary osteoarthritis, unspecified site; R56.9 Unspecified convulsions; J45.909 Unspecified asthma, uncomplicated; Z98.890 Other specified postprocedural states; Z79.1 Long term (current) use of non-steroidal anti-inflammatories (NSAID); Z79.899 Other long term (current) drug therapy; Z88.0 Allergy status to penicillin; Z88.8 Allergy status to other drugs, medicaments and biological substances; Z91.018 Allergy to other foods
CPT/HCPCS: 36415; 70450; 80053; 85027; 96372; 99284; J2060

== ENCOUNTER 2020-11-09 15:12 | Observation (INO) | payer BC ==
--- NOTE | 2020-11-09 15:49 | Event Note ---
ED Screening Note ED Screening Note: palpitations that began this morning when she woke up, got worse this afternoon feels like her heart is racing +CP +SOB states she took hydralazine, losartan, atorvastatin, hydrochlorothiazide, metoprolol Mock Up Maker: Dr Norris states EMS advised her she was in SVT and self converted PMHx asthma, epilepsy, PTSD, anemia-never had to be transfused allergy: pencillin, hydromorphine, PCN This initial assessment/diagnostic orders/clinical plan/treatment(s) is/are subject to change based on patients health status, clinical progression and re- assessment by fellow clinical providers in the ED. Further treatment and workup at subsequent clinical providers discretion. Patient/guardian urged not to elope from the ED as their condition may be serious if not clinically assessed and managed. Initial orders include: CP protocol
[2020-11-09 16:25] LABS: Basophils % (Auto) 0.5 % (0.0-1.8); Eosinophils % (Auto) 0.5 % (0.0-4.3); Hematocrit 37.6 % (30.3-42.9); Hemoglobin 12.8 gm/dl (10.1-14.3); Lymphocytes # (Auto) 2.3 K/mm3 (1.2-5.4); Lymphocytes % (Auto) 35.6 % (13.4-35.0); Mean Corpuscular HGB Conc 34 % (30-34); Mean Corpuscular Volume 82 fl (79-97); Monocytes # (Auto) 0.2 K/mm3 (0.0-0.8); Monocytes % (Auto) 3.6 % (0.0-7.3); Red Blood Count 4.59 M/mm3 (3.65-5.03); Red Cell Distribution Width 15.1 % (13.2-15.2)
[2020-11-09 16:27] LABS: Platelet Count 337 K/mm3 (140-440)
[2020-11-09 16:32] LABS: INR 0.82 (0.87-1.13); Partial Thromboplastin Time 25.2 Sec. (24.2-36.6)
[2020-11-09 16:41] LABS: Alanine Aminotransferase 14 units/L (7-56); Albumin 4.5 g/dL (3.9-5); Blood Urea Nitrogen 11 mg/dL (7-17); Calcium 9.8 mg/dL (8.4-10.2); Hemolysis Index 2
[2020-11-09 16:42] LABS: BUN/Creatinine Ratio 16
--- NOTE | 2020-11-09 16:46 | XRay Report ---
CHEST 2 VIEWS INDICATION / CLINICAL INFORMATION: Chest Pain. COMPARISON: 05/24/2020 FINDINGS: SUPPORT DEVICES: None. HEART / MEDIASTINUM: No significant abnormality. LUNGS / PLEURA: No significant pulmonary or pleural abnormality. No pneumothorax. ADDITIONAL FINDINGS: No significant additional findings. IMPRESSION: No significant abnormality or interval change from 05/24/2020 Signer Name: Reymundo Hidalgo MD FACR Signed: 11/09/2020 4:42 PM Workstation Name: [id number]
[2020-11-09] MEDS ORDERED: fentaNYL 100 MCG/2 ML INJ IV ONE (20:19)
[2020-11-09] MEDS ORDERED: ONDANSETRON 4 MG/2 ML INJ IV ONE (20:19)
[2020-11-09] MEDS ORDERED: NITROGLYCERIN 2% OINT 1 GM TP ONE (20:19)
--- NOTE | 2020-11-09 20:21 | Emergency Department Report ---
HPI - General Chief Complaint: Arrhythmia/Palpitations Time Seen by Provider: 11/09/20 15:45 - HPI HPI: Room 38 The patient is a 45-year-old female present with a chief complaint of chest pain. The patient states she went to sleep last night in her usual state of health. The patient states this morning she awakened at 07: 50 and had a constant substernal chest pain as well as a headache. Patient describes her chest pain as a pressure-like in nature associated with shortness of breath and nausea without vomiting. Patient denied diaphoresis. The patient states her chest pain was constant throughout the day even at work. Patient states she co ntinued to feel near syncopal throughout the day. The patient states when she came home from work she laid down secondary to feeling near syncopal and then she noticed her heart rate "shot up." The patient states she measured her heart rate at 124 bpm on her monitor and eventually called her edge roller. When she explained she was having chest pain and shortness of breath that she was told to call 911. EMS states when they arrived on scene the patient was found to have a heart rate of 164 bpm but after vagal maneuver the heart rate decreased to 122 bpm. EMS EKG reveals sinus tachycardia. Patient denies history of fever or cough. Patient currently gives her headache a score of 10/10 in her chest pain a score of 6-7/10. Patient states she had an abnormal stress test in 2019 and she believes her last cardiac catheterization occurred in 2018. ED Past Medical Hx - Past Medical History Previous Medical History?: Yes Hx Hypertension: Yes Hx Diabetes: Yes Hx Arthritis: Yes Hx Headaches / Migraines: Yes Hx Seizures: Yes Hx Asthma: Yes Additional medical history: anemia, svt, endometriosis, BOILS - Surgical History Past Surgical History?: Yes Additional Surgical History: hernia, tubal ligation, right knee surgery, cardiac ablation (2009). right shoulder dislocation - Family History Family history: no significant - Social History Smoking Status: Former Smoker (None x15 years) Substance Use Type: None (Denies illicit drug use) - Medications Home Medications: Home Medications Medication Instructions Recorded Confirmed Last Taken Type Albuterol Sulfate [Ventolin HFA] 2 puff INHALATION Q4HR PRN 08/29/13 09/24/19 Unknown History Amlodipine Besylate [Norvasc] 5 mg PO QDAY 07/01/0909/24/19 09/06/18 History Divalproex Sodium [Depakote ER] 3,000 mg PO HS 03/27/18 09/24/19 09/06/18 History traMADoL [Ultram 50 MG tab] 50 mg PO Q6HR PRN #12 tablet 08/07/18 09/24/19 09/06/18 Rx Simvastatin (NF) [Zocor TAB] 40 mg PO QHS #30 tablet 09/08/18 09/24/19 Unknown Rx Meclizine [Antivert] 25 mg PO Q8H PRN #30 tablet 10/19/18 06/19/19 Unknown Rx ALBUTEROL Inhaler(NF) [VENTOLIN 1 puff IH QID PRN #1 inha 02/03/19 09/24/19 Unknown Rx Inhaler(NF)] HYDROcodone/APAP 5-325 [[place] 1 each PO Q6HR PRN #15 tablet 04/09/19 09/24/19 Unknown Rx 5/325] Meclizine [Antivert] 25 mg PO TID PRN #30 tablet 04/09/19 09/24/19 Unknown Rx Nitroglycerin [Nitrostat] 0.4 mg SL Q5M PRN #30 tab 06/19/19 09/24/19 Unknown Rx Toprol Xl 25 mg PO DAILY 06/19/19 09/24/19 Unknown History traZODone [Desyrel] 1 tab PO HS 06/19/19 09/24/19 Unknown History Cyclobenzaprine [Flexeril 10 MG 10 mg PO QHS PRN #12 tablet 07/23/19 09/24/19 Unknown Rx TAB] Ibuprofen [Motrin 600 MG tab] 600 mg PO Q8H PRN #30 tablet 07/23/19 09/24/19 Unknown Rx Butalb/Acetamin/Caff 50-325-40 1 tab PO Q6HR PRN #24 tab 05/24/20 Unknown Rx [Fioricet] Metoprolol Xl [Metoprolol 50 mg PO BID 60 Days #30 tablet 10/30/20 Unknown Rx SUCCINATE ER TAB] ED Review of Systems ROS: Stated complaint: DENAE/TACHYCARDIA Other details as noted in HPI Constitutional: denies: diaphoresis, fever Eyes: denies: eye pain ENT: denies: throat pain Respiratory: shortness of breath Cardiovascular: chest pain, palpitations Endocrine: no symptoms reported Gastrointestinal: nausea. denies: vomiting Genitourinary: denies: dysuria Musculoskeletal: denies: back pain Neurological: headache Physical Exam - Physical Exam Vital Signs: Vital Signs 11/09/20 11/09/20 11/09/20 15:25 19:16 19:27 Temperature 97.9 F Pulse Rate 110 H 78 Respiratory 22 20 18 Rate Blood Pressure 158/93 O2 Sat by Pulse 100 99 Oximetry Physical Exam: GENERAL: The patient is well-developed well-nourished female lying on stretcher not appearing to be in acute distress. [] HEENT: Normocephalic. Atraumatic. Extraocular motions are intact. Patient has moist mucous membranes. NECK: Supple. Trachea midline CHEST/LUNGS: Clear to auscultation. There is no respiratory distress noted. HEART/CARDIOVASCULAR: Regular. There is no tachycardia. There is no gallop rub or murmur. ABDOMEN: Abdomen is soft, nontender. Patient has normal bowel sounds. There is no abdominal distention. SKIN: There is no rash. There is no edema. There is no diaphoresis. NEURO: The patient is awake, alert, and oriented. The patient is cooperative. The patient has no focal neurologic deficits. The patient has normal speech. Cranial nerves II through XII grossly intact MUSCULOSKELETAL: There is no evidence of acute injury. ED Course Vital Signs 11/09/20 11/09/20 11/09/20 15:25 19:16 19:27 Temperature 97.9 F Pulse Rate 110 H 78 Respiratory 22 20 18 Rate Blood Pressure 158/93 O2 Sat by Pulse 100 99 Oximetry ED Medical Decision Making - Lab Data Result diagrams: 11/09/20 16:00 11/09/20 16:00 Laboratory Tests 11/09/20 11/09/20 11/09/20 16:00 16:00 16:00 WBC 6.4 RBC 4.59 Hgb 12.8 Hct 37.6 MCV 82 MCH 28 MCHC 34 RDW 15.1 Plt Count 337 Lymph % (Auto) 35.6 H Saunders % (Auto) 3.6 Eos % (Auto) 0.5 Baso % (Auto) 0.5 Lymph # (Auto) 2.3 Saunders # (Auto) 0.2 Eos # (Auto) 0.0 Baso # (Auto) 0.0 Seg Neutrophils % 59.8 Seg Neutrophils # 3.8 PT 11.1 L INR 0.82 L APTT 25.2 D-Dimer VBG pH Sodium 140 Potassium 3.6 Chloride 102.8 Carbon Dioxide 26 Anion Gap 15 BUN 11 Creatinine 0.7 Estimated GFR > 60 BUN/Creatinine Ratio 16 Glucose 111 H Calcium 9.8 Magnesium 2.20 Total Bilirubin 0.20 AST 15 ALT 14 Alkaline Phosphatase 119 Total Creatine Kinase 137 H Troponin T < 0.010 Total Protein 8.1 Albumin 4.5 Albumin/Globulin Ratio 1.3 TSH 11/09/20 11/09/20 11/09/20 16:00 16:00 19:13 WBC RBC Hgb Hct MCV MCH MCHC RDW Plt Count Lymph % (Auto) Saunders % (Auto) Eos % (Auto) Baso % (Auto) Lymph # (Auto) Saunders # (Auto) Eos # (Auto) Baso # (Auto) Seg Neutrophils % Seg Neutrophils # PT INR APTT D-Dimer VBG pH 7.382 Sodium Potassium Chloride Carbon Dioxide Anion Gap BUN Creatinine Estimated GFR BUN/Creatinine Ratio Glucose Calcium Magnesium Total Bilirubin AST ALT Alkaline Phosphatase Total Creatine Kinase Troponin T < 0.010 Total Protein Albumin Albumin/Globulin Ratio TSH 1.310 11/09/20 Unknown WBC RBC Hgb Hct MCV MCH MCHC RDW Plt Count Lymph % (Auto) Saunders % (Auto) Eos % (Auto) Baso % (Auto) Lymph # (Auto) Saunders # (Auto) Eos # (Auto) Baso # (Auto) Seg Neutrophils % Seg Neutrophils # PT INR APTT D-Dimer 877.97 H VBG pH Sodium Potassium Chloride Carbon Dioxide Anion Gap BUN Creatinine Estimated GFR BUN/Creatinine Ratio Glucose Calcium Magnesium Total Bilirubin AST ALT Alkaline Phosphatase Total Creatine Kinase Troponin T Total Protein Albumin Albumin/Globulin Ratio TSH - EKG Data -: EKG Interpreted by Me EKG shows normal: sinus rhythm Rate: tachycardia (102 bpm) - EKG Data When compared to previous EKG there are: previous EKG unavailable Interpretation: other (No ischemic changes seen) - Radiology Data Radiology results: report reviewed (Chest x-ray, CT head, VQ scan), image reviewed (Chest x-ray, CT head, VQ scan) interpreted by me: Chest x-ray-no focal infiltrates, no pneumothorax. No foreign body seen [address] [address] XRay Report Signed Patient: DYLON MENDOZA MR#: [id number] : 1975 Acct:[id number] Age/Sex: 45 / F ADM Date: 11/09/20 Loc: ED Attending Dr: Ordering Physician: DIOGENES PERRIN Date of Service: 11/09/20 Procedure(s): XR chest routine 2V Accession Number(s): [id number] cc: DIOGENES PERRIN Fluoro Time In Minutes: CHEST 2 VIEWS INDICATION / CLINICAL INFORMATION: Chest Pain. COMPARISON: 05/24/2020 FINDINGS: SUPPORT DEVICES: None. HEART / MEDIASTINUM: No significant abnormality. LUNGS / PLEURA: No significant pulmonary or pleural abnormality. No pneumothorax. ADDITIONAL FINDINGS: No significant additional findings. IMPRESSION: No significant abnormality or interval change from 05/24/2020 Signer Name: Reymundo Hidalgo MD FACR Signed: 11/09/2020 4:42 PM Workstation Name: [id number] Transcribed By: MS Dictated By: Reymundo Hidalgo MD Electronically Authenticated By: Reymundo Hidalgo MD Signed Date/Time: 11/09/201641 DD/ 41 TD/TT: [facility] [address] [place] [address] Cat Scan Report Signed Patient: DYLON MENDOZA MR#: [id number] : 1975 Acct:[id number] Age/Sex: 45 / F ADM Date: 11/09/20 Loc: ED Attenddb guy Dr: Ordering Physician: RIANNA HAYS MD Date of Service: 11/09/20 Procedure(s): CT head/brain wo con Accession Number(s): [id number] cc: RIANNA HAYS MD CT HEAD WITHOUT CONTRAST INDICATION / CLINICAL INFORMATION: Headache, hypertension. TECHNIQUE: All CT scans at this location are performed using CT dose reduction for ALARA by means of automated exposure control. COMPARISON: Head CT 10/29/2020 and 05/24/2020 FINDINGS: HEMORRHAGE: No evidence of intracranial hemorrhage or extra-axial fluid collection. EXTRA-AXIAL SPACES: Cortical sulci, sylvian fissures and basilar cisterns have an unremarkable appearance. VENTRICULAR SYSTEM: The third and lateral ventricles are of normal size and configuration. CEREBRAL PARENCHYMA: No areas of abnormal brain parenchymal attenuation are identified. There is no indication of recent infarction. MIDLINE SHIFT OR HERNIATION: There is no mass effect. CEREBELLUM / BRAINSTEM: Brainstem and cerebellum have an unremarkable appearance. MIDLINE STRUCTURES:No abnormali ties of the pituitary gland or pineal region are identified. INTRACRANIAL VESSELS:No abnormalities are identified on this noncontrast head CT. ORBITS: visualized portions of the orbits have an unremarkable appearance. SOFT TISSUES of HEAD: No significant abnormality. CALVARIUM: Evaluation of bone windows reveals no abnormalities. PARANASAL SINUSES / MASTOID AIR CELLS: Visualized portions of the paranasal sinuses are free from inflammatory mucosal disease. Mastoid air cells are normally pneumatized. IMPRESSION: 1. Normal head CT without contrast. 2. No interval change in comparison to prior studies 10/29/2020 and 05/24/2020. Signer Name: Maldonado Meyer MD Signed: 11/09/2020 9:24 PM Workstation Name: [id number] Transcribed By: Dictated By: Maldonado Meyer MD Electronically Authenticated By: Maldonado Meyer MD Signed Date/Time: 11/09/202123 DD/ 21 TD/TT: [facility] [address] [place] [address] Nuclear Medicine Report Signed Patient: DYLON MENDOZA MR#: [id number] : 1975 Acct:[id number] Age/Sex: 45 / F ADM Date: 11/09/20 Loc: ED Attending Dr: Ordering Physician: RIANNA HAYS MD Date of Service: 11/09/20 Procedure(s): NM perfusion only lung scan Accession Number(s): [id number] cc: DHRUV HAYS MD NUCLEAR MEDICINE PERFUSION LUNG SCAN INDICATION: Chest pain, shortness of breath. TECHNIQUE: 5.5 mCi of Tc-99m MAA were given by IV. COMPARISON: Chest radiograph dated today. FINDINGS: PERFUSION: No significant perfusion defects. ADDITIONAL FINDINGS: None. IMPRESSION: 1. Low probability for pulmonary embolism. Signer Name: Sunil Ortega MD Signed: 11/09/2020 11:50 PM Workstation Name: [id number] Transcribed By: TL Dictated By: Sunil Ortega MD Electronically Authenticated By: Sunil Ortega MD Signed Date/Time: 11/09/202349 DD/ 49 TD/TT: - Differential Diagnosis ACS, dysrhythmia, SVT, PE, pericarditis, GERD Critical care attestation.: If time is entered above; I have spent that time in minutes in the direct care of this critically ill patient, excluding procedure time. ED Disposition Clinical Impression: Chest pain Disposition: OP ADMIT IP TO THIS HOSP Is pt being admited?: Yes Does the pt Need Aspirin: Yes Condition: Fair Instructions: Chest Pain (ED) Referrals: PRIMARY CARE, [Primary Care Provider] - 3-5 Days Time of Disposition: 23:58 (Hospitalist paged (Dr Lees)) HEART Score - HEART Score History: Moderately suspicious EKG: Normal Age: 45-65 Risk factors: > 3 risk factors or hx of atherosclerotic disease Troponin: Troponin T < 0.010 ng/mL (0.00-0.029) 11/09/20 19:13 Troponin: < normal limit HEART Score: 4
--- NOTE | 2020-11-09 21:29 | Cat Scan Report ---
CT HEAD WITHOUT CONTRAST INDICATION / CLINICAL INFORMATION: Headache, hypertension. TECHNIQUE: All CT scans at this location are performed using CT dose reduction for ALARA by means of automated e xposure control. COMPARISON: Head CT 10/29/2020 and 05/24/2020 FINDINGS: HEMORRHAGE: No evidence of intracranial hemorrhage or extra-axial fluid collection. EXTRA-AXIAL SPACES: Cortical sulci, sylvian fissures and basilar cisterns have an unremarkable appear ance. VENTRICULAR SYSTEM: The third and lateral ventricles are of normal size and configuration. CEREBRAL PARENCHYMA: No areas of abnormal brain parenchymal attenuation are identified. There is no i ndication of recent infarction. MIDLINE SHIFT OR HERNIATION: There is no mass effect. CEREBELLUM / BRAINSTEM: Brainstem and cerebellum have an unremarkable appearance. MIDLINE STRUCTURES:No abnormalities of the pituitary gland or pineal region are identified. INTRACRANIAL VESSELS:No abnormalities are identified on this noncontrast head CT. ORBITS: visualized portions of the orbits have an unremarkable appearance. SOFT TISSUES of HEAD: No significant abnormality. CALVARIUM: Evaluation of bone windows reveals no abnormalities. PARANASAL SINUSES / MASTOID AIR CELLS: Visualized portions of the paranasal sinuses are free from inf lammatory mucosal disease. Mastoid air cells are normally pneumatized. IMPRESSION: 1. Normal head CT without contrast. 2. No interval change in comparison to prior studies 10/29/2020 and 05/24/2020. Signer Name: Maldonado Meyer MD Signed: 11/09/2020 9:24 PM Workstation Name: [id number]
[2020-11-09] MEDS ORDERED: LORazepam 2 MG/ML VIAL IV ONE (22:26)
--- NOTE | 2020-11-09 23:55 | Nuclear Medicine Report ---
NUCLEAR MEDICINE PERFUSION LUNG SCAN INDICATION: Chest pain, shortness of breath. TECHNIQUE: 5.5 mCi of Tc-99m MAA were given by IV. COMPARISON: Chest radiograph dated today. FINDINGS: PERFUSION: No significant perfusion defects. ADDITIONAL FINDINGS: None. IMPRESSION: 1. Low probability for pulmonary embolism. Signer Name: Sunil Ortega MD Signed: 11/09/2020 11:50 PM Workstation Name: [id number]
[2020-11-09] MEDS ORDERED: ASPIRIN 325 MG TAB PO ONE (23:59)
[2020-11-10] MEDS ORDERED: MAGNESIUM HYDROXIDE (MOM) ORAL LIQD UDC PO PRN (00:30)
[2020-11-10] MEDS ORDERED: ACETAMINOPHEN 325 MG TAB PO PRN ×3 (00:30→08:48)
[2020-11-10] MEDS ORDERED: ONDANSETRON 4 MG/2 ML INJ IV PRN (00:30)
[2020-11-10] MEDS ORDERED: DEXTROSE 50% IN WATER (25GM) 50 ML SYRINGE IV PRN (00:30)
[2020-11-10] MEDS ORDERED: NITROGLYCERIN 0.4 MG TAB SUBL SL PRN (00:30)
--- NOTE | 2020-11-10 00:44 | History and Physical Report ---
History of Present Illness Date of examination: 11/09/20 Date of admission: 11/09/20 23:58 Chief complaint: Chest Pain History of present illness: 5-year-old female with known history of seizure disorder, asthma, and SVT presenting to the emergency room today complaining of chest pain. 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 Chest pain was said to be pressure-like was associated with some shortness of breath and nausea. She denies any vomiting, no fever or chills. She felt slightly dizzy. Patient later discovered that she was tachycardic with a heart rate of about 124 on the monitor and therefore called her research manager. She was subsequently encouraged to call EMS. Initial evaluation reveals heart rate of 164 bpm but later went down to 122 bpm after vagal maneuver. On a scale of 10 chest pain was about 6-7 in severity. Patient indicates that she has been compliant with her medications. She follows up with Dr. Norris- Endocrinology Physician. She had an abnormal stress test in 2019. Cardiac catheterization was said to be in 2018. Work-up in the emergency room today reveals elevated D-dimer on labs. V/Q scan was low probability for pulmonary embolism. CT scan of the head was unremarka ble. Patient is being admitted for chest pain, cardiac arrhythmia. Past History Past Medical History: arthritis, diabetes, hypertension, seizures, other (Asth ma,Endometriosis,Anemia,SVT,Seizures) Past Surgical History: hernia repair, Other (Tubal ligation,Cardiac ablation- in 2009) Social history: smoking (Former smoker,) Family history: no significant family history Medications and Allergies Allergies Allergy/AdvReac Type Severity Reaction Status Date / Time hydromorphone [From Dilaudid] Allergy Hives Verified 05/24/20 13:30 Penicillins Allergy Rash Verified 05/24/20 13:27 Tomato Allergy Hives Uncoded 07/21/16 22:52 Home Medications Medication Instructions Recorded Confirmed Last Taken Type Albuterol Sulfate [Ventolin HFA] 2 puff INHALATION Q4HR PRN 08/29/13 09/24/19 Unknown History Amlodipine Besylate [Norvasc] 5 mg PO QDAY 03/27/18 09/24/19 09/06/18 History Divalproex Sodium [Depakote ER] 3,000 mg PO HS 03/27/18 09/24/19 09/06/18 History traMADoL [Ultram 50 MG tab] 50 mg PO Q6HR PRN #12 tablet 08/07/18 09/24/19 09/06/18 Rx Simvastatin (NF) [Zocor TAB] 40 mg PO QHS #30 tablet 09/08/18 09/24/19 Unknown Rx Meclizine [Antivert] 25 mg PO Q8H PRN #30 tablet 10/19/18 06/19/19 Unknown Rx ALBUTEROL Inhaler(NF) [VENTOLIN 1 puff IH QID PRN #1 inha 02/03/19 09/24/19 Unknown Rx Inhaler(NF)] HYDROcodone/APAP 5-325 [[place] 1 each PO Q6HR PRN #15 tablet 04/09/19 09/24/19 Unknown Rx 5/325] Meclizine [Antivert] 25 mg PO TID PRN #30 tablet 04/09/19 09/24/19 Unknown Rx Nitroglycerin [Nitrostat] 0.4 mg SL Q5M PRN #30 tab 06/19/19 09/24/19 Unknown Rx Toprol Xl 25 mg PO DAILY 06/19/19 09/24/19 Unknown History traZODone [Desyrel] 1 tab PO HS 06/19/19 09/24/19 Unknown History Cyclobenzaprine [Flexeril 10 MG 10 mg PO QHS PRN #12 tablet 07/23/19 09/24/19 Unknown Rx TAB] Ibuprofen [Motrin 600 MG tab] 600 mg PO Q8H PRN #30 tablet 07/23/19 09/24/19 Unknown Rx Butalb/Acetamin/Caff 50-325-40 1 tab PO Q6HR PRN #24 tab 05/24/20 Unknown Rx [Fioricet] Metoprolol Xl [Metoprolol 50 mg PO BID 60 Days #30 tablet 10/30/20 Unknown Rx SUCCINATE ER TAB] Review of Systems Constitutional: no fever, no chills, no weakness Ears, nose, mouth and throat: no nasal congestion, no sore throat Cardiovascular: chest pain, palpitations Respiratory: no cough, no shortness of breath Gastrointestinal: no abdominal pain, no nausea, no vomiting, no diarrhea Genitourinary Female: no dysuria, no hematuria Musculoskeletal: no neck pain, no low back pain Integumentary: no rash, no pruritis Neurological: no headaches, no confusion Psychiatric: no anxiety, no depression Exam - Constitutional Vitals: Temp Pulse Resp BP Pulse Ox 97.9 F 83 13 140/90 94 11/09/20 15:25 11/09/20 23:00 11/09/20 23:00 11/09/20 23:00 11/09/20 23:00 General appearance: Present: no acute distress, well-nourished - EENT Eyes: Present: PERRL, EOM intact. Absent: scleral icterus ENT: hearing intact, clear oral mucosa, dentition normal - Neck Neck: Present: supple, normal ROM - Respiratory Respiratory effort: normal Respiratory: bilateral: CTA - Cardiovascular Rhythm: regular Heart Sounds: Present: S1 & S2. Absent: gallop, systolic murmur, diastolic murmur, rub, click - Extremities Extremities: no ischemia, pulses intact, pulses symmetrical, No edema, normal temperature, normal color, Full ROM Peripheral Pulses: within normal limits - Abdominal General gastrointestinal: Present: soft, non-tender, non-distended, normal bowel sounds. Absent: mass - Integumentary Integumentary: Present: clear, warm, dry. Absent: rash - Musculoskeletal Musculoskeletal: strength equal bilaterally - Psychiatric Psychiatric: appropriate mood/affect, intact judgment & insight, memory intact, cooperative - Neurologic Neurologic: CNII-XII intact, no focal deficits, moves all extremities HEART Score - HEART Score History: Moderately suspicious EKG: Normal Age: 45-65 Risk factors: > 3 risk factors or hx of atherosclerotic disease Troponin: Troponin T < 0.010 ng/mL (0.00-0.029) 11/09/20 19:13 Troponin: < normal limit HEART Score: 4 Results - Labs CBC & Chem 7: 11/09/20 16:00 11/09/20 16:00 Labs: Abnormal lab results 11/09/20 11/09/20 11/09/20 Range/Units 16:00 16:00 16:00 Lymph % (Auto) 35.6 H (13.4-35.0) % PT 11.1 L (12.2-14.9) Sec. INR 0.82 L (0.87-1.13) D-Dimer (0-234) ng/mlDDU Glucose 111 H (65-100) mg/dL Total Creatine Kinase 137 H (30-135) units/L Valproic Acid (50-100) ug/mL 11/09/20 11/09/20 Range/Units 22:50 Unknown Lymph % (Auto) (13.4-35.0) % PT (12.2-14.9) Sec. INR (0.87-1.13) D-Dimer 877.97 H (0-234) ng/mlDDU Glucose (65-100) mg/dL Total Creatine Kinase (30-135) units/L Valproic Acid < 2.8 L (50-100) ug/mL Assessment and Plan - Patient Problems (1) Chest pain Current Visit: Yes Status: Acute Plan to address problem: Patient admitted and placed on telemetry. Will check serial cardiac enzymes. Patient placed on daily aspirin, sublingual nitroglycerin and IV morphine as needed for chest pain. Consult placed to cardiology for evaluation and recommendations. (2) Asthma Current Visit: Yes Status: Acute Plan to address problem: We will continue patient on nebulizing treatments and inhalers as needed. (3) Seizure disorder Current Visit: No Status: Acute Plan to address problem: She will be placed on her routine home medications. Patient also placed on seizure precautions. (4) Hypertension, benign Current Visit: No Status: Chronic Plan to address problem: We will resume routine home medications and monitor vital signs closely. (5) DVT prophylaxis Current Visit: No Status: Acute Plan to address problem: Patient placed on subcutaneous Lovenox. (6) Full code status Current Visit: Yes Status: Acute Plan to address problem: Patient is a full code.
[2020-11-10] MEDS ORDERED: ALBUTEROL 8.5 GM MDI INHALATION IH PRN (04:27)
[2020-11-10] MEDS ORDERED: ALBUTEROL 2.5 MG/3 ML NEBU IH PRN (04:40)
[2020-11-10 05:17] LABS: Basophils % (Auto) 0.6 % (0.0-1.8); Eosinophils % (Auto) 0.7 % (0.0-4.3); Hematocrit 34.8 % (30.3-42.9); Hemoglobin 11.8 gm/dl (10.1-14.3); Lymphocytes # (Auto) 2.3 K/mm3 (1.2-5.4); Lymphocytes % (Auto) 43.4 % (13.4-35.0); Mean Corpuscular HGB Conc 34 % (30-34); Mean Corpuscular Volume 83 fl (79-97); Monocytes # (Auto) 0.3 K/mm3 (0.0-0.8); Monocytes % (Auto) 4.8 % (0.0-7.3); Platelet Count 378 K/mm3 (140-440)
[2020-11-10 05:31] LABS: Blood Urea Nitrogen 12 mg/dL (7-17); Calcium 8.9 mg/dL (8.4-10.2); Hemolysis Index 6
[2020-11-10 05:33] LABS: BUN/Creatinine Ratio 17
[2020-11-10] MEDS: INSULIN LISPRO 100 UNIT/ML SUB-Q SCH ×4 (08:39→23:00)
[2020-11-10] MEDS ORDERED: METOPROLOL SUCCINATE XL 50 MG TAB PO SCH (10:00)
[2020-11-10] MEDS ORDERED: amLODIPine 5 MG TAB PO SCH (10:00)
--- NOTE | 2020-11-10 14:09 | Consultation ---
History of Present Illness Consult date: 11/10/20 Requesting physician: ELANA FULLER Consult reason: chest pain History of present illness: The pt is a 45 YO female with a past medical history of paroxysmal SVT, s/p SVT ablation in 2010, non-cardiac chest pain, normal coronaries via LHC in 2017, HTN, HLP, DM, seizure disorder. She is followed in our office by Dr. Norris. She presented with c/o chest pressure, palpitations, headache an SOB for 1 day prior to arrival. Pt states that her symptoms began shortly after waking up yesterday morning. She took her home medications and proceeded to go to work. Her symptoms progressively worsened throughout the day and thus she called our office and spoke to a nurse who advised her to call 911. Pt called EMS and per ED records, EMS states when they arrived on scene the patient was found to have a heart rate of 164 bpm but after vagal maneuver the heart rate decreased to 122 bpm. EMS EKG reveals sinus tachycardia. ECGs and telemetry since admission show NSR HR 80s. On evaluation, pt is resting comfortably in bed. She reports resolution of her symptoms. tte done 03/2018 showed EF 55-60%, mod TR. LHC done 03/2018 showed patent coronaries, normal LV function. Past History Past Medical History: arthritis, diabetes, hypertension, hyperlipidemia, seizures, other (Asthma,Endometriosis,Anemia,SVT,Seizures) Past Surgical History: hernia repair, Other (Tubal ligation,Cardiac ablation- in 2009) Social history: smoking (Former smoker,) Family history: no significant family history Medications and Allergies Allergies Allergy/AdvReac Type Severity Reaction Status Date / Time hydromorphone [From Dilaudid] Allergy Hives Verified 05/24/20 13:30 Penicillins Allergy Rash Verified 05/24/20 13:27 Tomato Allergy Hives Uncoded 07/21/16 22:52 Home Medications Medication Instructions Recorded Confirmed Last Taken Type Albuterol Sulfate [Ventolin HFA] 2 puff INHALATION Q4HR PRN 08/29/13 09/24/19 Unknown History Amlodipine Besylate [Norvasc] 5 mg PO QDAY 03/27/18 09/24/19 09/06/18 History Divalproex Sodium [Depakote ER] 3,000 mg PO HS 03/27/18 09/24/1918 History traMADoL [Ultram 50 MG tab] 50 mg PO Q6HR PRN #12 tablet 08/07/18 09/24/19 09/06/18 Rx Simvastatin (NF) [Zocor TAB] 40 mg PO QHS #30 tablet 09/08/18 09/24/19 Unknown Rx Meclizine [Antivert] 25 mg PO Q8H PRN #30 tablet 10/19/18 06/19/19 Unknown Rx ALBUTEROL Inhaler(NF) [VENTOLIN 1 puff IH QID PRN #1 inha 02/03/19 09/24/19 Unknown Rx Inhaler(NF)] HYDROcodone/APAP 5-325 [[place] 1 each PO Q6HR PRN #15 tablet 04/09/19 09/24/19 Unknown Rx 5/325] Meclizine [Antivert] 25 mg PO TID PRN #30 tablet 04/09/19 09/24/19 Unknown Rx Nitroglycerin [Nitrostat] 0.4 mg SL Q5M PRN #30 tab 06/19/19 09/24/19 Unknown Rx Toprol Xl 25 mg PO DAILY 06/19/19 09/24/19 Unknown History traZODone [Desyrel] 1 tab PO HS 06/19/19 09/24/19 Unknown History Cyclobenzaprine [Flexeril 10 MG 10 mg PO QHS PRN #12 tablet 07/23/19 09/24/19 Unknown Rx TAB] Ibuprofen [Motrin 600 MG tab] 600 mg PO Q8H PRN #30 tablet 07/23/19 09/24/19 Unknown Rx Butalb/Acetamin/Caff 50-325-40 1 tab PO Q6HR PRN #24 tab 05/24/20 Unknown Rx [Fioricet] Metoprolol Xl [Metoprolol 50 mg PO BID 60 Days #30 tablet 10/30/20 Unknown Rx SUCCINATE ER TAB] Active Meds: Active Medications Acetaminophen (Acetaminophen 325 Mg Tab) 650 mg PO Q4H PRN PRN Reason: Pain MILD(1-3)/Fever >100.5/[facility] Last Admin: 11/10/20 08:57 Dose: 650 mg Documented by: Acetaminophen (Acetaminophen 325 Mg Tab) 650 mg PO Q4H PRN PRN Reason: Pain, Mild (1-3) Albuterol (Albuterol 2.5 Mg/3 Ml Nebu) 2.5 mg IH Q4HRT PRN PRN Reason: Shortness Of Breath Amlodipine Besylate (Amlodipine 5 Mg Tab) 5 mg PO QDAY [facility] Last Admin: 11/10/20 11:23 Dose: Not Given Documented by: Aspirin (Aspirin Ec 325 Mg Tab) 325 mg PO QDAY [facility] Dextrose (Dextrose 50% In Water (25gm) 50 Ml Syringe) 50 ml IV Q30MIN PRN; Protocol PRN Reason: Hypoglycemia Divalproex Sodium (Divalproex Er 500 Mg Tab) 3,000 mg PO HS [facility] Insulin Human Lispro (Insulin Lispro 100 Unit/Ml) 0 unit SUB-Q ACHS [facility]; Protocol Last Admin: 11/10/20 08:39 Dose: Not Given Documented by: Magnesium Hydroxide (Magnesium Hydroxide (Mom) Oral Liqd Udc) 30 ml PO Q4H PRN PRN Reason: Constipation Metoprolol Succinate (Metoprolol Succinate Xl 50 Mg Tab) 50 mg PO BID [facility] Last Admin: 11/10/20 11:29 Dose: 50 mg Documented by: Nitroglycerin (Nitroglycerin 0.4 Mg Tab Subl) 0.4 mg SL Q5M PRN PRN Reason: Chest Pain Ondansetron HCl (Ondansetron 4 Mg/2 Ml Inj) 4 mg IV Q8H PRN PRN Reason: Nausea And Vomiting Pravastatin Sodium (Pravastatin 80 Mg Tab) 80 mg PO QHS [facility] Sodium Chloride (Sodium Chloride 0.9% 10 Ml Flush Syringe) 10 ml IV BID [facility] Last Admin: 11/10/20 11:36 Dose: Not Given Documented by: Sodium Chloride (Sodium Chloride 0.9% 10 Ml Flush Syringe) 10 ml IV PRN PRN PRN Reason: LINE FLUSH Trazodone HCl (Trazodone 50 Mg Tab) 50 mg PO HS [facility] Review of Systems Constitutional: no weight loss, no weight gain, no fever, no chills, no sweats Ears, nose, mouth and throat: no ear pain, no nose pain, no sinus pressure, no sinus pain Cardiovascular: chest pain, palpitations, rapid/irregular heart beat, shortness of breath, dyspnea on exertion, no orthopnea, no edema, no syncope, no lightheadedness Respiratory: no cough, no shortness of breath, no dyspnea on exertion, no congestion, no wheezing, no pain on inspiration Gastrointestinal: no abdominal pain, no nausea, no vomiting, no diarrhea, no constipation, no change in bowel habits Genitourinary Female: no pelvic pain, no flank pain, no dysuria, no urinary frequency, no urgency Musculoskeletal: no neck stiffness, no neck pain, no shooting arm pain, no arm numbness/tingling, no low back pain, no shooting leg pain Integumentary: no rash, no pruritis, no redness, no sores, no wounds Neurological: no head injury, no paralysis, no weakness, no parathesias, no numbness, no tingling, no seizures, no syncope Psychiatric: no anxiety Endocrine: no cold intolerance, no heat intolerance Hematologic/Lymphatic: no easy bruising Allergic/Immunologic: no urticaria Physical Examination Vital Signs Temp Pulse Resp BP Pulse Ox 97.9 F 110 H 22 158/93 100 11/09/20 15:25 11/09/20 15:25 11/09/20 15:25 11/09/20 15:25 11/09/20 15:25 General appearance: no acute distress HEENT: Positive: PERRL, Normocephaly, Mucus Membranes Moist Neck: Positive: neck supple, trachea midline Cardiac: Positive: Reg Rate and Rhythm, S1/S2 Lungs: Positive: Decreased Breath Sounds Neuro: Positive: Grossly Intact Abdomen: Negative: Tender Skin: Negative: Rash Musculoskeletal: No Pain Extremities: Absent: edema Results 11/10/20 04:59 11/10/20 04:59 Cardiac Enzymes 11/09/20 Range/Units 16:00 AST 15 (5-40) units/L Coagulation 11/09/20 Range/Units 16:00 PT 11.1 L (12.2-14.9) Sec. INR 0.82 L (0.87-1.13) APTT 25.2 (24.2-36.6) Sec. CBC 11/09/20 11/10/20 Range/Units 16:00 04:59 WBC 6.4 5.3 (4.5-11.0) K/mm3 RBC 4.59 4.20 (3.65-5.03) M/mm3 Hgb 12.8 11.8 (10.1-14.3) gm/dl Hct 37.6 34.8 (30.3-42.9) % Plt Count 337 378 (140-440) K/mm3 Lymph # (Auto) 2.3 2.3 (1.2-5.4) K/mm3 Dillon # (Auto) 0.2 0.3 (0.0-0.8) K/mm3 Eos # (Auto) 0.0 0.0 (0.0-0.4) K/mm3 Baso # (Auto) 0.0 0.0 (0.0-0.1) K/mm3 Comprehensive Metabolic Panel 11/09/20 11/10/20 Range/Units 16:00 04:59 Sodium 140 140 (137-145) mmol/L Potassium 3.6 3.7 (3.6-5.0) mmol/L Chloride 102.8 102.8 (98-107) mmol/L Carbon Dioxide 26 28 (22-30) mmol/L BUN 11 12 (7-17) mg/dL Creatinine 0.7 0.7 (0.6-1.2) mg/dL Glucose 111 H 119 H (65-100) mg/dL Calcium 9.8 8.9 (8.4-10.2) mg/dL AST 15 (5-40) units/L ALT 14 (7-56) units/L Alkaline Phosphatase 119 (35-129) units/L Total Protein 8.1 (6.3-8.2) g/dL Albumin 4.5 (3.9-5) g/dL - Imaging and Cardiology Echo: report reviewed (03/2018 showed EF 55-60%, mod TR. ) Cardiac cath: report reviewed (03/2018 showed patent coronaries, normal LV function. ) EKG: report reviewed, image reviewed EKG interpretations - Telemetry EKG Rhythm: Sinus Rhythm - EKG Sinus rhythms and dysrhythmias: sinus rhythm Assessment and Plan Pt presented with reported SVT in the field - no strips available for review. She has h/o paroxysmal SVT and is s/p SVT ablation in 2010. She has maintained NSR since admission. Labwork is unremarkable, AMI r/o, v/q scan is low prob for PE. Pt has h/o normal coronaries via C in 2018. No plans for repeat ischemic evaluation at this time. Stress test cancelled. D/c home norvasc and increase home BB. Cont to observe overnight on telemetry. Await echo. Anticipate d/c in AM. Will follow. The patient has been seen in conjunction with Dr. Glenda Diaz who agrees with the assessment and plan of care. - Patient Problems (1) Paroxysmal SVT (supraventricular tachycardia) Current Visit: Yes Status: Chronic (2) History of cardiac radiofrequency ablation Current Visit: Yes Status: Chronic (3) HTN (hypertension) Current Visit: Yes Status: Chronic (4) Hyperlipidemia Current Visit: Yes Status: Chronic (5) Diabetes Current Visit: Yes Status: Chronic (6) Normal coronary arteries Current Visit: Yes Status: Chronic (7) Seizure disorder Current Visit: Yes Status: Chronic
--- NOTE | 2020-11-10 14:18 | Progress Note ---
Assessment and Plan (1) Chest pain Current Visit: Yes Status: Acute Plan to address problem: Patient admitted and placed on telemetry. Will check serial cardiac enzymes. Patient placed on daily aspirin, sublingual nitroglycerin and IV morphine as needed for chest pain. Consult placed to cardiology for evaluation and recommendations. Status post VQ scan yesterday showed low probability for PE (2) Asthma Current Visit: Yes Status: Acute Plan to address problem: We will continue patient on nebulizing treatments and inhalers as needed. (3) Seizure disorder Current Visit: No Status: Acute Plan to address problem: She will be placed on her routine home medications. Patient also placed on seizure precautions. (4) Hypertension, benign Current Visit: No Status: Chronic Plan to address problem: We will resume routine home medications and monitor vital signs closely. (5) DVT prophylaxis Current Visit: No Status: Acute Plan to address problem: Patient placed on subcutaneous Lovenox. (6) Full code status Current Visit: Yes Status: Acute Plan to address problem: Patient is a full code. 11/10/20: Patient cannot have stress test today as she had a VQ scan yesterday. Consulted cardiology, will follow recommendation for chest pain management. Continue supportive care and medical management for chest pain, follow the patient with serial troponin and EKG. Subjective Date of service: 11/10/20 Interval history: Patient seen and examined. Medical records and medication list reviewed. No acute event overnight noted by the RN. Patient denies any difficulty breathing. Patient is tolerating diet. She complains of intermittent ongoing chest pain neck scale of 6 out of 10 Discussed plan of care at bedside with patient. Objective - Exam Narrative Exam: GENERAL: well-developed and well-nourished female lying on bed appeared to be in no discomfort. HEENT: Normocephalic. Atraumatic. No conjunctival congestion or icterus. Patient has moist mucous membranes. NECK: Supple. Trachea midline. CHEST/LUNGS: Clear to auscultated bilaterally, breathing nonlabored. No wheezes crackles or rhonchi. HEART/CARDIOVASCULAR: Regular in rate and rhythm. S1 and S2 positive. ABDOMEN: Abdomen is soft, nontender. Patient has normal bowel sounds. SKIN: There is no rash. Warm and dry. NEURO: No focal motor deficit. Follows command. MUSCULOSKELETAL: No joint effusion or tenderness. EXTRIMITY: No edema, no cyanosis or clubbing. PSYCH: Cooperative. - Constitutional Vitals: Vital Signs - 12hr 11/10/20 11/10/20 11/10/20 03:00 04:00 05:00 Pulse Rate 66 69 72 Respiratory 16 14 13 Rate Blood Pressure 151/81 151/81 140/86 Blood Pressure [Right] O2 Sat by Pulse 94 96 98 Oximetry 11/10/20 11/10/20 11/10/20 06:00 07:00 08:00 Pulse Rate 69 76 70 Respiratory 14 14 11 L Rate Blood Pressure 147/86 145/84 147/90 Blood Pressure [Right] O2 Sat by Pulse 97 97 98 Oximetry 11/10/20 11/10/20 11/10/20 09:00 10:00 11:23 Pulse Rate 68 65 66 Respiratory 14 13 Rate Blood Pressure 157/88 136/79 157/78 Blood Pressure [Right] O2 Sat by Pulse 97 97 Oximetry 11/10/20 12:51 Pulse Rate 72 Respiratory 16 Rate Blood Pressure Blood Pressure 160/93 [Right] O2 Sat by Pulse 98 Oximetry - Labs CBC & Chem 7: 11/11/20 06:12 11/11/20 06:12 Labs: Abnormal lab results 11/09/20 11/09/20 11/09/20 Range/Units 16:00 16:00 16:00 Lymph % (Auto) 35.6 H (13.4-35.0) % PT 11.1 L (12.2-14.9) Sec. INR 0.82 L (0.87-1.13) D-Dimer (0-234) ng/mlDDU Glucose 111 H (65-100) mg/dL Total Creatine Kinase 137 H (30-135) units/L Valproic Acid (50-100) ug/mL 11/09/20 11/09/20 11/10/20 Range/Units 22:50 Unknown 04:59 Lymph % (Auto) 43.4 H (13.4-35.0) % PT (12.2-14.9) Sec. INR (0.87-1.13) D-Dimer 877.97 H (0-234) ng/mlDDU Glucose (65-100) mg/dL Total Creatine Kinase (30-135) units/L Valproic Acid < 2.8 L (50-100) ug/mL 11/10/20 Range/Units 04:59 Lymph % (Auto) (13.4-35.0) % PT (12.2-14.9) Sec. INR (0.87-1.13) D-Dimer (0-234) ng/mlDDU Glucose 119 H (65-100) mg/dL Total Creatine Kinase (30-135) units/L Valproic Acid (50-100) ug/mL HEART Score - HEART Score EKG: Normal Age: 45-65 Risk factors: > 3 risk factors or hx of atherosclerotic disease Troponin: Troponin T < 0.010 ng/mL (0.00-0.029) 11/10/20 04:59 Troponin: < normal limit
[2020-11-10] MEDS ORDERED: DIVALPROEX ER 500 MG TAB PO SCH (22:00)
[2020-11-10] MEDS ORDERED: NON-FORMULARY EACH (Simvastatin (Nf) 40 MG Tablet) PO SCH (22:00)
[2020-11-10] MEDS ORDERED: traZODone 50 MG TAB PO SCH (22:00)
[2020-11-10] MEDS ORDERED: PRAVASTATIN 80 MG TAB PO SCH (22:00)
[2020-11-10] MEDS: METOPROLOL TARTRATE 50 MG TAB PO SCH (23:03)
[2020-11-11 06:37] LABS: Hematocrit 35.7 % (30.3-42.9); Hemoglobin 11.9 gm/dl (10.1-14.3); Mean Corpuscular HGB Conc 33 % (30-34); Mean Corpuscular Volume 83 fl (79-97); Platelet Count 372 K/mm3 (140-440); Red Blood Count 4.29 M/mm3 (3.65-5.03)
[2020-11-11 06:47] LABS: INR 1.05 (0.87-1.13)
[2020-11-11 06:52] LABS: BUN/Creatinine Ratio 16; Blood Urea Nitrogen 13 mg/dL (7-17); Calcium 8.5 mg/dL (8.4-10.2); Hemolysis Index 3
[2020-11-11] MEDS: INSULIN LISPRO 100 UNIT/ML SUB-Q SCH ×3 (08:19→16:54)
[2020-11-11] MEDS: METOPROLOL TARTRATE 50 MG TAB PO SCH (09:58)
[2020-11-11] MEDS ORDERED: ASPIRIN 81 MG TAB CHEW PO SCH (10:00)
[2020-11-11] MEDS ORDERED: ASPIRIN EC 325 MG TAB PO SCH (10:00)
--- NOTE | 2020-11-11 11:10 | Progress Note ---
Assessment and Plan Pt presented with reported SVT in the field - no strips available for review. She has h/o paroxysmal SVT and is s/p SVT ablation in 2010. She has maintained NSR since admission. Labwork is unremarkable, AMI r/o, v/q scan is low prob for PE. Pt has h/o normal coronaries via [facility] in 2018. No plans for repeat ischemic evaluation at this time. Stress test cancelled. tte reviewed - EF 60-65%, impaired relaxation. Currently stable cardiac status. Pt may discharge from cardiology standpoint on present cardiac regimen. Follow up in our [place] office with Dr. Norris on 12/06/2020 @ 3:45PM. The patient has been seen in conjunction with Dr. Glenda Diaz who agrees with the assessment and plan of care. - Patient Problems (1) Paroxysmal SVT (supraventricular tachycardia) Current Visit: Yes Status: Chronic (2) History of cardiac radiofrequency ablation Current Visit: Yes Status: Chronic (3) HTN (hypertension) Current Visit: Yes Status: Chronic (4) Hyperlipidemia Current Visit: Yes Status: Chronic (5) Diabetes Current Visit: Yes Status: Chronic (6) Normal coronary arteries Current Visit: Yes Status: Chronic (7) Seizure disorder Current Visit: Yes Status: Chronic Subjective Date of service: 11/11/20 Principal diagnosis: SVT Interval history: pt resting comfortably in bed, no current cardiac complaints. tele reviewed - in NSR, no acute events noted overnight. Objective Last Vital Signs Temp 98.2 F 11/11/20 07:38 Pulse 59 L 11/11/20 09:58 Resp 18 11/11/20 07:38 BP 143/78 11/11/20 09:58 Pulse Ox 97 11/11/20 07:38 - Physical Examination General: No Apparent Distress HEENT: Positive: PERRL, Normocephaly, Mucus Membranes Moist Neck: Positive: neck supple, trachea midline Cardiac: Positive: Reg Rate and Rhythm, S1/S2 Lungs: Positive: Decreased Breath Sounds Neuro: Positive: Grossly Intact Abdomen: Negative: Tender Skin: Negative: Rash Musculoskeletal: No Pain Extremities: Absent: edema - Labs and Meds Coagulation 11/11/20 Range/Units 06:12 PT 13.5 (12.2-14.9) Sec. INR 1.05 (0.87-1.13) CBC 11/11/20 Range/Units 06:12 WBC 4.7 (4.5-11.0) K/mm3 RBC 4.29 (3.65-5.03) M/mm3 Hgb 11.9 (10.1-14.3) gm/dl Hct 35.7 (30.3-42.9) % Plt Count 372 (140-440) K/mm3 Comprehensive Metabolic Panel 11/11/20 Range/Units 06:12 Sodium 138 (137-145) mmol/L Potassium 3.5 L (3.6-5.0) mmol/L Chloride 101.0 (98-107) mmol/L Carbon Dioxide 29 (22-30) mmol/L BUN 13 (7-17) mg/dL Creatinine 0.8 (0.6-1.2) mg/dL Glucose 104 H (65-100) mg/dL Calcium 8.5 (8.4-10.2) mg/dL - Imaging and Cardiology EKG: report reviewed, image reviewed Echo: report reviewed (03/2018 showed EF 55-60%, mod TR. ) Cardiac cath: report reviewed (03/2018 showed patent coronaries, normal LV function. ) - Telemetry EKG Rhythm: Sinus Rhythm - EKG Sinus rhythms and dysrhythmias: sinus rhythm
[2020-11-11 11:36] LABS: Platelet Estimate Consistent w Auto; RBC Morphology Normal; Total Cells Counted 100
--- NOTE | 2020-11-11 15:17 | Discharge Summary ---
Providers - Providers Date of Admission: 11/09/20 23:58 Date of discharge: 11/11/20 Attending physician: FRANCISCA LUEVANO 11/10/20 Consult to Cardiac Rehabilitation [CONS] Routine Reason For Exam: Phase I 11/10/20 00:31 Consult to Cardiology [CONS] Routine Consulting Provider: DREA NORRIS Reason For Exam: chest pain Consult to Dietitian/Nutrition [CONS] Routine Physician Instructions: Reason For Exam: Reason for Consult: Diet education Primary care physician: [employer]ER Hospitalization Condition: Fair Hospital course: The pt is a 45 YO female with a past medical history of paroxysmal SVT, s/p SVT ablation in 2010, non-cardiac chest pain, normal coronaries via LHC in 2018, HTN, HLP, DM, seizure disorder who followed up with Dr. Molina.he presented with complaints of chest pressure, palpitation, headache and shortness of breath for 1 day prior to arrival. per ED records, EMS states when they arrived on scene th e patient was found to have a heart rate of 164 bpm but after vagal maneuver the heart rate decreased to 122 bpm. EMS EKG reveals sinus tachycardia. ECGs and telemetry since admission show NSR HR 80s. Patient was evaluated with serial cardiac enzymes and EKG. Chest x-ray showed no infiltrate and VQ scan showed low probability for PE. 2D echo showed preserved EF. Her oxygen saturation was 9200% on room air. Cardiology was consulted and recommended outpatient follow- up and cleared patient for discharge. Patient was then discharged home in stable condition. Patient follow-up with Dr. oNrris in 1 week. Discharge diagnosis: Chest pain, likely due to GERD History of asthma, stable Seizure disorder, recommended to be compliant with medication Hypertension, benign Paroxysmal SVT, resolved Mild hypokalemia, high K rich diet recommended Disposition: - TO HOME OR SELFCARE Time spent for discharge: 34 minutes Core Measure Documentation - Palliative Care Palliative Care/ Comfort Measures: Not Applicable - Core Measures Any of the following diagnoses?: none Exam - Physical Exam Narrative exam: GENERAL: well-developed and well-nourished female lying on bed appeared to be in no discomfort. HEENT: Normocephalic. Atraumatic. No conjunctival congestion or icterus. Patient has moist mucous membranes. NECK: Supple. Trachea midline. CHEST/LUNGS: Clear to auscultated bilaterally, breathing nonlabored. No wheezes crackles or rhonchi. HEART/CARDIOVASCULAR: Regular in rate and rhythm. S1 and S2 positive. ABDOMEN: Abdomen is soft, nontender. Patient has normal bowel sounds. SKIN: There is no rash. Warm and dry. NEURO: No focal motor deficit. Follows command. MUSCULOSKELETAL: No joint effusion or tenderness. EXTRIMITY: No edema, no cyanosis or clubbing. PSYCH: Cooperative. - Constitutional Vitals: Temp Pulse Resp BP Pulse Ox 98.5 F 63 20 146/84 98 11/11/20 12:39 11/11/20 12:39 11/11/20 12:39 11/11/20 12:39 11/11/20 12:39 Plan Activity: advance as tolerated Weight Bearing Status: Weight Bear as Tolerated Diet: low fat, low salt (high K) Special Instructions: record daily BP diary Additional Instructions: BMP in one week Follow up with: PRIMARY CAREMD [Primary Care Provider] - 3-5 Days DREA NORRIS MD [Staff Physician] - 7 Days Prescriptions: Aspirin EC [Halfprin EC] 81 mg PO QDAY #30 tablet. Metoprolol [Lopressor TAB] 50 mg PO BID #60 tablet Simvastatin 40 mg PO DAILY #30 tablet
[2020-11-11 16:55] VITALS: BP 154/88
== END 2020-11-11 17:37 | disposition home or self-care (01) ==
LOC: ED 15:12 → 4A 23:58
PROVIDERS: ADMIT Internal Medicine Geriatric Medicine; ATTEND Internal Medicine
DX: R07.89 Other chest pain (principal); J45.909 Unspecified asthma, uncomplicated; R56.9 Unspecified convulsions; G93.2 Benign intracranial hypertension; I10 Essential (primary) hypertension; E11.9 Type 2 diabetes mellitus without complications; I47.1 Supraventricular tachycardia; E78.5 Hyperlipidemia, unspecified; G43.909 Migraine, unspecified, not intractable, without status migrainosus; E87.6 Hypokalemia; D64.9 Anemia, unspecified; M19.90 Unspecified osteoarthritis, unspecified site; Z98.890 Other specified postprocedural states; Z98.51 Tubal ligation status; Z87.891 Personal history of nicotine dependence; Z79.82 Long term (current) use of aspirin
CPT/HCPCS: 36415; 70450; 71046; 78580; 80048; 80053; 80164; 82550; 82805; 82962; 83735; 84443; 84484; 85025; 85379; 85610; 85730; 93005; 93306; 96374; 96375; 99285; A9540; G0378; J2060; J2405; J3010; 85007

== ENCOUNTER 2020-11-29 22:54 | Observation (INO) | payer BC ==
[2020-11-30] MEDS ORDERED: DEXTROSE 50% IN WATER (25GM) 50 ML VIAL IV PRN (02:59)
--- NOTE | 2020-11-30 03:05 | Emergency Department Report ---
ED General Adult HPI - General Chief complaint: Hypoglycemia Stated complaint: GENERAL WEAKNESS PUI?: No Time Seen by Provider: 11/30/20 02:48 Source: patient, EMS ( EMS documentation not available at time of chart dictat ion ), RN notes reviewed, old records reviewed Mode of arrival: Ambulatory Limitations: No Limitations - History of Present Illness Initial comments: The patient was evaluated in the emergency department for symptoms described in the history of present illness. He/she was evaluated in the context of the [facility] COVID-19 pandemic, which necessitated consideration that the patient might be at risk for infection with the virus that causes COVID-19. Institutional protocols and algorithms that pertain to the evaluation of patients at risk for COVID-19 are in a state of rapid change based on information released by regulatory bodies including the CDC and federal and state organizations. These policies and algorithms were followed during the patient's care in the emergency department. Please note that these policies, procedures and recommendations changed on a rapid basis. The patient is a 45-year-old female. I have evaluated this patient in the past. Her past medical history includes paroxysmal SVT, obesity, seizures, asthma, type 2 diabetes, currently maintained on glipizide. She does not know her last hemoglobin A1c. The patient is brought to the hospital by emergency medical services with a complaint of hypoglycemia. Patient reportedly on the phone with her insurance company with a complaint of feeling weak and dizzy, found to be hypoglycemic with an Accu-Chek of 58. This was treated with ora intervention, glucose improved, and then dropped again. The patient denies headache, neck pain, chest pain, abdominal pain, shortness of breath, nausea, vomiting, diarrhea. Positive chronic cough. No loss of taste or smell. Endorses compliance with medications. She was previously maintained on Metformin, but could not tolerate it secondary to diarrhea. Patient having difficulty with diet and lifestyle, secondary to her history of SVT. She reports that she is "trying" to do better with her diet. Currently, she feels like she is at her baseline. She reports compliance with her valproic acid. To me, the patient makes no complaint of having auras, or feeling like she is g oing to have a seizure. -: Sudden Consistency: intermittent Improves with: eating Worsens with: none - Related Data Home Medications Medication Instructions Recorded Confirmed Last Taken AtorvaSTATin [Lipitor] 40 mg PO QHS 11/30/20 11/30/20 Unknown Divalproex ER [DepaKOTE ER] 3,000 mg PO QHS 11/30/20 11/30/20 Unknown Escitalopram Oxalate [Lexapro] 20 mg PO QHS 11/30/20 11/30/20 Unknown Fluticasone Propionate [Flovent 50 mcg IH BID MDD 2 puffs 11/30/20 11/30/20 Unknown Diskus] Fluticasone/Salmeterol [Advair 1 puff IH BID 11/30/20 11/30/20 Unknown Diskus 500-50 mcg] Losartan [Cozaar] 100 mg PO QDAY 11/30/20 11/30/20 Unknown Melatonin [Meladox 3MG TAB ER] 3 mg PO QHS 11/30/20 11/30/20 Unknown Metoclopramide [Reglan] 10 mg PO QDAY 11/30/20 11/30/20 Unknown Metoprolol [Lopressor] 25 mg PO QDAY 11/30/20 11/30/20 Unknown Montelukast [Singulair] 10 mg PO QPM 11/30/20 11/30/20 Unknown Omeprazole 20 mg PO QDAY 11/30/20 11/30/20 Unknown Tiotropium [Spiriva] 18 mcg IH QDAY MDD 2 puffs 11/30/20 11/30/20 Unknown glipiZIDE [Glucotrol] 5 mg PO QDAY 11/30/20 11/30/20 Unknown hydrALAZINE [Apresoline TAB] 50 mg PO TID 11/30/20 11/30/20 Unknown hydroCHLOROthiazide 37.5 mg PO TID 11/30/20 11/30/20 Unknown [Hydrochlorothiazide] levETIRAcetam [Keppra TAB] 500 mg PO BID 11/30/20 11/30/20 Unknown Allergies Allergy/AdvReac Type Severity Reaction Status Date / Time hydromorphone [From Dilaudid] Allergy Hives Verified 05/24/20 13:30 Penicillins Allergy Rash Verified 05/24/20 13:27 Tomato Allergy Hives Uncoded 07/21/16 22:52 ED Review of Systems ROS: Stated complaint: GENERAL WEAKNESS Other details as noted in HPI Constitutional: malaise, weakness. denies: fever Eyes: denies: eye discharge Respiratory: cough Cardiovascular: denies: chest pain Gastrointestinal: denies: abdominal pain, nausea, vomiting, diarrhea Genitourinary: denies: dysuria Musculoskeletal: denies: back pain Neurological: weakness Hematological/Lymphatic: denies: easy bleeding ED Past Medical Hx - Past Medical History Previous Medical History?: Yes Hx Hypertension: Yes Hx Heart Attack/AMI: No Hx Congestive Heart Failure: No Hx Diabetes: Yes Hx Deep Vein Thrombosis: No Hx Pulmonary Embolism: No Hx Liver Disease: No Hx Arthritis: Yes Hx Headaches / Migraines: Yes Hx Seizures: Yes Hx Asthma: Yes Hx COPD: No Hx Tuberculosis: No Hx Dementia: No Hx HIV: No Additional medical history: anemia, svt, endometriosis, BOILS - Surgical History Past Surgical History?: Yes Hx Coronary Stent: No Hx Pacemaker: No Hx Internal Defibrillator: No Additional Surgical History: hernia, tubal ligation, right knee surgery, cardiac ablation (2009). right shoulder dislocation - Social History Smoking Status: Never Smoker Substance Use Type: None - Medications Home Medications: Home Medications Medication Instructions Recorded Confirmed Last Taken Type AtorvaSTATin [Lipitor] 40 mg PO QHS 11/30/20 11/30/20 Unknown History Divalproex ER [DepaKOTE ER] 3,000 mg PO QHS 11/30/20 11/30/20 Unknown History Escitalopram Oxalate [Lexapro] 20 mg PO QHS 11/30/20 11/30/20 Unknown History Fluticasone Propionate [Flovent 50 mcg IH BID MDD 2 puffs 11/30/20 11/30/20 Unknown History Diskus] Fluticasone/Salmeterol [Advair 1 puff IH BID 11/30/20 11/30/20 Unknown History Diskus 500-50 mcg] Losartan [Cozaar] 100 mg PO QDAY 11/30/20 11/30/20 Unknown History Melatonin [Meladox 3MG TAB ER] 3 mg PO QHS 11/30/20 11/30/20 Unknown History Metoclopramide [Reglan] 10 mg PO QDAY 11/30/20 11/30/20 Unknown History Metoprolol [Lopressor] 25 mg PO QDAY 11/30/20 11/30/20 Unknown History Montelukast [Singulair] 10 mg PO QPM 11/30/20 11/30/20 Unknown History Omeprazole 20 mg PO QDAY 11/30/20 11/30/20 Unknown History Tiotropium [Spiriva] 18 mcg IH QDAY MDD 2 puffs 11/30/20 11/30/20 Unknown History glipiZIDE [Glucotrol] 5 mg PO QDAY 11/30/20 11/30/20 Unknown History hydrALAZINE [Apresoline TAB] 50 mg PO TID 11/30/20 11/30/20 Unknown History hydroCHLOROthiazide 37.5 mg PO TID 11/30/20 11/30/20 Unknown History [Hydrochlorothiazide] levETIRAcetam [Keppra TAB] 500 mg PO BID 11/30/20 11/30/20 Unknown History ED Physical Exam - General Limitations: No Limitations General appearance: alert, in no apparent distress - Head Head exam: Present: atraumatic, normocephalic - Eye Eye exam: Present: normal appearance, EOMI. Absent: nystagmus - ENT ENT exam: Present: normal exam, normal orophraynx, mucous membranes moist, normal external ear exam - Neck Neck exam: Present: normal inspection, full ROM. Absent: tenderness, meningismus - Respiratory Respiratory exam: Present: normal lung sounds bilaterally. Absent: respiratory distress, wheezes, rales, rhonchi, stridor, decreased breath sounds - Cardiovascular Cardiovascular Exam: Present: regular rate, normal rhythm, normal heart sounds. Absent: bradycardia, tachycardia, irregular rhythm, systolic murmur, diastolic murmur, rubs, gallop - GI/Abdominal GI/Abdominal exam: Present: soft. Absent: distended, tenderness, guarding, rebound, rigid, pulsatile mass - Extremities Exam Extremities exam: Present: normal inspection, full ROM, other (2+ pulses noted in the bilateral upper and lower extremities. There is no palpable cord. negative Homans sign. Muscular compartments are soft. The pelvis is stable.). Absent: pedal edema, calf tenderness - Back Exam Back exam: Present: normal inspection, full ROM. Absent: tenderness, CVA tenderness (R), CVA tenderness (L), paraspinal tenderness, vertebral tenderness - Neurological Exam Neurological exam: Present: alert, oriented X3, other (No facial droop. Tongue midline. Extraocular movements intact bilaterally. Facial sensation intact to light touch in V1, V2, V3 distribution bilaterally. 5 and a 5 strength in 4 extremities. Sensation intact to light touch in 4 extremities.). Absent: motor sensory deficit - Psychiatric Psychiatric exam: Present: normal affect, normal mood - Skin Skin exam: Present: warm, dry, intact, normal color. Absent: rash ED Course Vital Signs 11/29/20 11/30/20 11/30/20 23:15 03:01 03:28 Temperature 97.9 F Pulse Rate 90 70 81 Respiratory 18 18 Rate Blood Pressure 188/105 169/92 157/92 O2 Sat by Pulse 98 97 Oximetry - Reevaluation(s) Reevaluation #1: 11/30/20 03:06 Differential diagnosis, including but not limited to: Medication associated hypoglycemia, electrolyte derangement, pneumonia, urinary tract infection Assessment and plan: 45-year-old female, who is clinically sober at this time, with a GCS of 15, with intermittent hypoglycemia, in the context of glipizide/sulfonylurea use. She is otherwise afebrile with reassuring vital signs. She is not able to tolerate Metformin secondary to side effects. Glipizide/sulfonylurea has unpredictable kinetics, and patient at risk for recurrent hypoglycemia within the next 24 hours. She last took this medication at 7:00 PM on November 29, 2020. We will check basic laboratory studies, EKG, urinalysis, x-ray of the chest, place patient on Accu-Cheks, and as needed dextrose. We have recommended admission to the medical service for glycemic monitoring. Patient amenable to this plan of care. Reassess after initial data points, x-ray, urinalysis, and EKG have resulted. 11/30/20 03:57 Laboratory studies, x-ray of the chest reviewed and appreciated. Hospital physician, Dr. Elicia Sam to admit for glycemic monitoring and supportive care ED Medical Decision Making - Lab Data Result diagrams: 11/30/20 03:08 11/30/20 03:08 Vital Signs 11/29/20 23:15 Temperature 97.9 F Pulse Rate 90 Respiratory 18 Rate Blood Pressure 188/105 O2 Sat by Pulse 98 Oximetry Lab Results 11/30/20 11/30/20 11/30/20 Range/Units 02:44 03:08 03:08 WBC 8.2 (4.5-11.0) K/mm3 RBC 4.13 (3.65-5.03) M/mm3 Hgb 11.4 (10.1-14.3) gm/dl Hct 33.7 (30.3-42.9) % MCV 82 (79-97) fl MCH 28 (28-32) pg MCHC 34 (30-34) % RDW 14.5 (13.2-15.2) % Plt Count 362 (140-440) K/mm3 POC Glucose 114 H (70-105) mg/dL Hemoglobin A1c 5.9 (4-6) % Vital Signs 11/29/20 11/30/20 11/30/20 23:15 03:01 03:28 Temperature 97.9 F Pulse Rate 90 70 81 Respiratory 18 18 Rate Blood Pressure 188/105 169/92 157/92 O2 Sat by Pulse 98 97 Oximetry Lab Results 11/30/20 11/30/20 11/30/20 Range/Units 02:44 03:08 03:08 WBC 8.2 (4.5-11.0) K/mm3 RBC 4.13 (3.65-5.03) M/mm3 Hgb 11.4 (10.1-14.3) gm/dl Hct 33.7 (30.3-42.9) % MCV 82 (79-97) fl MCH 28 (28-32) pg MCHC 34 (30-34) % RDW 14.5 (13.2-15.2) % Plt Count 362 (140-440) K/mm3 Sodium 135 L (137-145) mmol/L Potassium 3.5 L (3.6-5.0) mmol/L Chloride 97.5 L (98-107) mmol/L Carbon Dioxide 31 H (22-30) mmol/L Anion Gap 10 mmol/L BUN 7 (7-17) mg/dL Creatinine 0.8 (0.6-1.2) mg/dL Estimated GFR > 60 ml/min BUN/Creatinine Ratio 9 % Glucose 101 H (65-100) mg/dL POC Glucose 114 H (70-105) mg/dL Hemoglobin A1c (4-6) % Calcium 9.0 (8.4-10.2) mg/dL Magnesium 2.20 (1.7-2.3) mg/dL Total Bilirubin 0.20 (0.1-1.2) mg/dL AST 12 (5-40) units/L ALT 10 (7-56) units/L Alkaline Phosphatase 110 (35-129) units/L Total Creatine Kinase 67 (30-135) units/L Total Protein 7.0 (6.3-8.2) g/dL Albumin 3.8 L (3.9-5) g/dL Albumin/Globulin Ratio 1.2 % HCG, Quant (0-4) mIU/mL Valproic Acid (50-100) ug/mL 11/30/20 11/30/20 11/30/20 Range/Units 03:08 03:08 03:15 WBC (4.5-11.0) K/mm3 RBC (3.65-5.03) M/mm3 Hgb (10.1-14.3) gm/dl Hct (30.3-42.9) % MCV (79-97) fl MCH (28-32) pg MCHC (30-34) % RDW (13.2-15.2) % Plt Count (140-440) K/mm3 Sodium (137-145) mmol/L Potassium (3.6-5.0) mmol/L Chloride (98-107) mmol/L Carbon Dioxide (22-30) mmol/L Anion Gap mmol/L BUN (7-17) mg/dL Creatinine (0.6-1.2) mg/dL Estimated GFR ml/min BUN/Creatinine Ratio % Glucose (65-100) mg/dL POC Glucose (70-105) mg/dL Hemoglobin A1c 5.9 (4-6) % Calcium (8.4-10.2) mg/dL Magnesium (1.7-2.3) mg/dL Total Bilirubin (0.1-1.2) mg/dL AST (5-40) units/L ALT (7-56) units/L Alkaline Phosphatase (35-129) units/L Total Creatine Kinase (30-135) units/L Total Protein (6.3-8.2) g/dL Albumin (3.9-5) g/dL Albumin/Globulin Ratio % HCG, Quant < 2 (0-4) mIU/mL Valproic Acid < 2.8 L (50-100) ug/mL - EKG Data -: EKG Interpreted by Mn EKG shows normal: sinus rhythm Rate: normal - EKG Data 11/30/20 03:09 Time of interpretation, 3: 0 6 AM Sinus rhythm, 70 bpm. Normal axis, first-degree AV block, VT interval 221 ms. Poor R wave progression. Minimal motion artifact. QTC prolonged, 458 ms. This is an abnormal EKG. This is not a STEMI. Appears grossly unchanged with compared to prior EKG from October 2020 - Radiology Data Radiology results: pending, report reviewed, image reviewed X-ray of the chest negative for acute finding Critical care attestation.: If time is entered above; I have spent that time in minutes in the direct care of this critically ill patient, excluding procedure time. ED Disposition Clinical Impression: Hypoglycemia Adverse effect of sulfonylurea Qualifiers: Encounter type: initial encounter Qualified Code(s): T38.3X5A - Adverse effect of insulin and oral hypoglycemic [antidiabetic] drugs, initial encounter Disposition: 09 OP ADMIT IP TO THIS HOSP Is pt being admited?: Yes Does the pt Need Aspirin: No Condition: Good Referrals: PRIMARY CARE, [Primary Care Provider] - 3-5 Days
[2020-11-30] MEDS ORDERED: amLODIPine 5 MG TAB PO ONE (03:08)
[2020-11-30 03:22] LABS: Hematocrit 33.7 % (30.3-42.9); Hemoglobin 11.4 gm/dl (10.1-14.3); Mean Corpuscular HGB Conc 34 % (30-34); Mean Corpuscular Volume 82 fl (79-97); Platelet Count 362 K/mm3 (140-440); Red Blood Count 4.13 M/mm3 (3.65-5.03); Red Cell Distribution Width 14.5 % (13.2-15.2)
[2020-11-30] MEDS ORDERED: METOPROLOL TARTRATE 50 MG TAB PO ONE (03:24)
[2020-11-30] MEDS ORDERED: LOSARTAN 50 MG TAB PO ONE (03:24)
--- NOTE | 2020-11-30 03:26 | XRay Report ---
CHEST 1 VIEW 11/30/2020 2:19 AM INDICATION / CLINICAL INFORMATION: cough hypoglycemia. COMPARISON: 11/09/2020. FINDINGS: SUPPORT DEVICES: None. HEART / MEDIASTINUM: No significant abnormality. LUNGS / PLEURA: No significant pulmonary or pleural abnormality. No pneumothorax. ADDITIONAL FINDINGS: No significant additional findings. IMPRESSION: No acute abnormality. Signer Name: Shakeel Robles MD Signed: 11/30/2020 3:21 AM Workstation Name: [id number]
[2020-11-30 03:45] LABS: Alanine Aminotransferase 10 units/L (7-56); Albumin 3.8 g/dL (3.9-5); BUN/Creatinine Ratio 9; Blood Urea Nitrogen 7 mg/dL (7-17); Hemolysis Index 7
[2020-11-30] MEDS ORDERED: VALPROIC ACID 250 MG CAP PO ONE (03:55)
[2020-11-30] MEDS ORDERED: DEXTROSE 50% IN WATER (25GM) 50 ML SYRINGE IV PRN (04:37)
--- NOTE | 2020-11-30 05:05 | History and Physical Report ---
History of Present Illness Date of examination: 11/30/20 Date of admission: 11/30/20 03:58 Chief complaint: Weakness. History of present illness: 45 year old female presenting with weakness after taking her oral hypoglycemic drug Glipizide at about 7.00 pm last night. Patient said she ate all her meals,and later on started feeling weak and blood sugar showed low level of 58. she took some oral glucose drinks and sugar level went up and later on showed some little drop. Patient denied intake of any new medication or herbs, patient also denied history of chest pain ,fever, nausea, vomiting, diarrhea Past History Past Medical History: arrhythmia, anemia, arthritis, diabetes, hypertension, migraines, seizures, other (ASTHMA) Past Surgical History: hernia repair, Other (RIGHT MIKIE SURGERY, CARDIAC ABLATION, RIGHT SHOULDER SHOULDER) Social history: no significant social history Family history: no significant family history Medications and Allergies Allergies Allergy/AdvReac Type Severity Reaction Status Date / Time hydromorphone [From Dilaudid] Allergy Hives Verified 05/24/20 13:30 Penicillins Allergy Rash Verified 05/24/20 13:27 Tomato Allergy Hives Uncoded 07/21/16 22:52 Home Medications Medication Instructions Recorded Confirmed Last Taken Type AtorvaSTATin [Lipitor] 40 mg PO QHS 11/30/20 11/30/20 Unknown History Divalproex ER [DepaKOTE ER] 3,000 mg PO QHS 11/30/20 11/30/20 Unknown History Escitalopram Oxalate [Lexapro] 20 mg PO QHS 11/30/20 11/30/20 Unknown History Fluticasone Propionate [Flovent 50 mcg IH BID MDD 2 puffs 11/30/20 11/30/20 Unknown History Diskus] Fluticasone/Salmeterol [Advair 1 puff IH BID 11/30/20 11/30/20 Unknown History Diskus 500-50 mcg] Losartan [Cozaar] 100 mg PO QDAY 11/30/20 11/30/20 Unknown History Melatonin [Meladox 3MG TAB ER] 3 mg PO QHS 11/30/20 11/30/20 Unknown History Metoclopramide [Reglan] 10 mg PO QDAY 11/30/20 11/30/20 Unknown History Metoprolol [Lopressor] 25 mg PO QDAY 11/30/20 11/30/20 Unknown History Montelukast [Singulair] 10 mg PO QPM 11/30/20 11/30/20 Unknown History Omeprazole 20 mg PO QDAY 11/30/20 11/30/20 Unknown History Tiotropium [Spiriva] 18 mcg IH QDAY MDD 2 puffs 11/30/20 11/30/20 Unknown History glipiZIDE [Glucotrol] 5 mg PO QDAY 11/30/20 11/30/20 Unknown History hydrALAZINE [Apresoline TAB] 50 mg PO TID 11/30/20 11/30/20 Unknown History hydroCHLOROthiazide 37.5 mg PO TID 11/30/20 11/30/20 Unknown History [Hydrochlorothiazide] levETIRAcetam [Keppra TAB] 500 mg PO BID 11/30/20 11/30/20 Unknown History Active Meds: Active Medications Dextrose (Dextrose 50% In Water (25gm) 50 Ml Vial) 50 gm IV Q30MIN PRN; Protocol PRN Reason: Hypoglycemia Dextrose (Dextrose 50% In Water (25gm) 50 Ml Syringe) 50 ml IV Q30MIN PRN; Protocol PRN Reason: Hypoglycemia Insulin Human Regular (Insulin Regular, Human 100 Units/1 Ml) 0 units SUB-Q AC LENI; Protocol Insulin Human Regular (Insulin Regular, Human 100 Units/1 Ml) 0 units SUB-Q QHS LENI; Protocol Review of Systems Constitutional: weakness, no fever, no chills, no sweats, no malaise Eyes: bilateral: other (NO BILATERAL EYE SYMPTOMS) Ears, nose, mouth and throat: no ear pain Breasts: deferred Cardiovascular: no chest pain, no orthopnea, no palpitations, no rapid/irregular heart beat, no syncope, no lightheadedness, no shortness of breath Respiratory: no cough, no excessive sputum, no shortness of breath Gastrointestinal: no nausea, no vomiting, no diarrhea, no constipation Genitourinary Female: no urinary frequency, no nocturia Musculoskeletal: no neck pain, no low back pain Integumentary: no rash, no pruritis, no redness, no sores, no wounds, no lesions Neurological: weakness, no paralysis, no parathesias, no numbness, no tingling, no seizures, no syncope, no headaches, no migraines, no convulsions, no aphasia, no change in speech, no change in mentation Psychiatric: no anxiety, no depression Endocrine: no polyuria, no nocturia, no palpatations Hematologic/Lymphatic: no easy bruising Exam - Constitutional Vitals: Temp Pulse Resp BP Pulse Ox 97.9 F 81 18 157/92 97 11/29/20 23:15 11/30/20 03:28 11/30/20 03:01 11/30/20 03:28 11/30/20 03:01 General appearance: Present: no acute distress - EENT Eyes: Present: PERRL, EOM intact ENT: hearing intact, clear oral mucosa, dentition normal - Neck Neck: Present: supple, normal ROM - Respiratory Respiratory effort: normal - Cardiovascular Rhythm: regular Heart Sounds: Present: S1 & S2. Absent: gallop, systolic murmur, diastolic murmur - Extremities Extremities: no ischemia, No edema Peripheral Pulses: within normal limits - Abdominal General gastrointestinal: Present: deferred, soft, non-tender, non-distended. Absent: tender, distended, rigid, hepatomegaly, splenomegaly Female genitourinary: Present: deferred - Rectal Rectal Exam: deferred - Integumentary Integumentary: Present: clear, warm, dry. Absent: jaundice, rash - Musculoskeletal Musculoskeletal: generalized weakness - Psychiatric Psychiatric: appropriate mood/affect HEART Score - HEART Score Risk factors: 1-2 risk factors Troponin: < normal limit - Critical Actions Critical Actions: 0-3 pts:0.9-1.7%risk of adverse cardiac event.Candidate for discharge Results - Labs CBC & Chem 7: 11/30/20 03:08 11/30/20 03:08 Labs: Laboratory Last Values WBC 8.2 K/mm3 (4.5-11.0) 11/30/20 03:08 RBC 4.13 M/mm3 (3.65-5.03) 11/30/20 03:08 Hgb 11.4 gm/dl (10.1-14.3) 11/30/20 03:08 Hct 33.7 % (30.3-42.9) 11/30/20 03:08 MCV 82 fl (79-97) 11/30/20 03:08 MCH 28 pg (28-32) 11/30/20 03:08 MCHC 34 % (30-34) 11/30/20 03:08 RDW 14.5 % (13.2-15.2) 11/30/20 03:08 Plt Count 362 K/mm3 (140-440) 11/30/20 03:08 Sodium 135 mmol/L (137-145) L 11/30/20 03:08 Potassium 3.5 mmol/L (3.6-5.0) L 11/30/20 03:08 Chloride 97.5 mmol/L (98-107) L 11/30/20 03:08 Carbon Dioxide 31 mmol/L (22-30) H 11/30/20 03:08 Anion Gap 10 mmol/L 11/30/20 03:08 BUN 7 mg/dL (7-17) 11/30/20 03:08 Creatinine 0.8 mg/dL (0.6-1.2) 11/30/20 03:08 Estimated GFR > 60 ml/min 11/30/20 03:08 BUN/Creatinine Ratio 9 % 11/30/20 03:08 Glucose 101 mg/dL (65-100) H 11/30/20 03:08 POC Glucose 114 mg/dL (70-105) H 11/30/20 02:44 Hemoglobin A1c 5.9 % (4-6) 11/30/20 03:08 Calcium 9.0 mg/dL (8.4-10.2) 11/30/20 03:08 Magnesium 2.20 mg/dL (1.7-2.3) 11/30/20 03:08 Total Bilirubin 0.20 mg/dL (0.1-1.2) 11/30/20 03:08 AST 12 units/L (5-40) 11/30/20 03:08 ALT 10 units/L (7-56) 11/30/20 03:08 Alkaline Phosphatase 110 units/L (35-129) 11/30/20 03:08 Total Creatine Kinase 67 units/L (30-135) 11/30/20 03:08 Total Protein 7.0 g/dL (6.3-8.2) 11/30/20 03:08 Albumin 3.8 g/dL (3.9-5) L 11/30/20 03:08 Albumin/Globulin Ratio 1.2 % 11/30/20 03:08 HCG, Quant < 2 mIU/mL (0-4) 11/30/20 03:15 Valproic Acid < 2.8 ug/mL (50-100) L 11/30/20 03:08 Assessment and Plan - Patient Problems (1) Hypoglycemia Current Visit: Yes Status: Acute Plan to address problem: 1. ACCUCHECKS 2. HYPOGLYCEMIC PROTOCOL 3. SLIDING SCALE INSULING COVERAGE 4. DIEBETIC DIET
[2020-11-30 06:08] LABS: Bacteria,Urine 1+ /HPF (Negative); Bilirubin,Urine NEG (Negative); Blood,Urine NEG (Negative); Color,Urine Yellow (Yellow); Mucus,Urine 1+ /HPF; Protein,Urine <15 mg/dL mg/dL (Negative); Urobilinogen,Urine < 2.0 mg/dL (<2.0)
[2020-11-30] MEDS: INSULIN REGULAR, HUMAN 100 UNITS/1 ML SUB-Q SCH ×2 (07:30→11:30)
[2020-11-30 11:41] VITALS: BP 144/92
--- NOTE | 2020-11-30 13:10 | Discharge Summary ---
Providers - Providers Date of Admission: 11/30/20 03:58 Date of discharge: 11/30/20 Attending physician: DENIZ LUIS Primary care physician: SHUTTLE FILLER Hospitalization Condition: Good Disposition: DC-01 TO HOME OR SELFCARE Time spent for discharge: 32 min Core Measure Documentation - Palliative Care Palliative Care/ Comfort Measures: Not Applicable - Core Measures Any of the following diagnoses?: none Exam - Constitutional Vitals: Temp Pulse Resp BP Pulse Ox 97.9 F 87 20 144/92 98 11/30/20 06:33 11/30/20 11:33 11/30/20 06:33 11/30/20 11:33 11/30/20 11:33 General appearance: Present: no acute distress, well-nourished - EENT Eyes: Present: PERRL, EOM intact - Neck Neck: Present: supple, normal ROM - Respiratory Respiratory effort: normal Respiratory: bilateral: diminished, negative: rales, rhonchi, wheezing - Cardiovascular Rhythm: regular Heart Sounds: Present: S1 & S2 - Extremities Extremities: no ischemia, No edema - Abdominal General gastrointestinal: Present: soft, non-tender, non-distended, normal bowel sounds - Integumentary Integumentary: Present: clear, warm - Musculoskeletal Musculoskeletal: strength equal bilaterally - Psychiatric Psychiatric: appropriate mood/affect, cooperative - Neurologic Neurologic: CNII-XII intact, moves all extremities Plan Activity: advance as tolerated, no driving until cleared by PCP, other (Seizure precautions) Diet: diabetic Additional Instructions: Your blood sugars are in the normal range, your Hb A1c is 5.9[within normal range] advised to hold diabetic medications glipizide for 1 to 2 weeks, and check with primary care physician for recommendations regarding resuming diabetic medications based on blood sugars. Avoid hypoglycemia. If you have worsening symptoms contact MD or go to emergency room. Gave prescription for 30 days of Depakote 3000 mg p.o. nightly as recommended by private neurologist Dr. Martin, advised to get additional prescriptions from your private neurologist. Follow up with: PRIMARY CAREMD [Primary Care Provider] - 3-5 Days OLEGARIO CROOK MD [Referring] - 7 Days Prescriptions: Divalproex ER [DepaKOTE ER] 3,000 mg PO QDAY #30 tablet
[2020-11-30] MEDS ORDERED: INSULIN REGULAR, HUMAN 100 UNITS/1 ML SUB-Q SCH (22:00)
== END 2020-11-30 16:15 | disposition home or self-care (01) ==
LOC: ED 22:54 → 3A 11-30 03:58
PROVIDERS: ADMIT Internal Medicine; ATTEND Internal Medicine
DX: E11.649 Type 2 diabetes mellitus with hypoglycemia without coma (principal); D64.9 Anemia, unspecified; I49.9 Cardiac arrhythmia, unspecified; T38.3X5A Adverse effect of insulin and oral hypoglycemic [antidiabetic] drugs, initial encounter; M19.90 Unspecified osteoarthritis, unspecified site; I10 Essential (primary) hypertension; G43.909 Migraine, unspecified, not intractable, without status migrainosus; R56.9 Unspecified convulsions; J45.909 Unspecified asthma, uncomplicated; Z98.890 Other specified postprocedural states; Z79.4 Long term (current) use of insulin; Z98.51 Tubal ligation status
CPT/HCPCS: 36415; 71045; 80053; 80164; 81001; 82550; 82962; 83036; 83735; 84702; 85027; 93005; 99285; G0378

== ENCOUNTER 2021-02-08 13:24 | Outpatient (CLI) | payer BC ==
[2021-02-08 14:06] LABS: Alanine Aminotransferase 6 units/L (7-56); Albumin 4.2 g/dL (3.9-5); BUN/Creatinine Ratio 17; Blood Urea Nitrogen 15 mg/dL (7-17); Calcium 9.3 mg/dL (8.4-10.2); Hemolysis Index 4
[2021-02-08 14:23] LABS: Basophils % (Auto) 0.2 % (0.0-1.8); Eosinophils % (Auto) 0.2 % (0.0-4.3); Hematocrit 35.6 % (30.3-42.9); Hemoglobin 11.6 gm/dl (10.1-14.3); Lymphocytes # (Auto) 1.7 K/mm3 (1.2-5.4); Mean Corpuscular HGB Conc 33 % (30-34); Mean Corpuscular Volume 82 fl (79-97); Monocytes # (Auto) 0.2 K/mm3 (0.0-0.8); Monocytes % (Auto) 3.8 % (0.0-7.3); Platelet Count 352 K/mm3 (140-440); Red Blood Count 4.37 M/mm3 (3.65-5.03); Red Cell Distribution Width 15.8 % (13.2-15.2)
== END 2021-02-08 13:25 | disposition home or self-care (01) ==
LOC: LAB 13:24
PROVIDERS: ATTEND Specialist
DX: G40.211 Localization-related (focal) (partial) symptomatic epilepsy and epileptic syndromes with complex partial seizures, intractable, with status epilepticus (principal)
CPT/HCPCS: 36415; 80053; 80164; 85025

== ENCOUNTER 2021-07-08 11:28 | Outpatient (CLI) | payer BC ==
[2021-07-08 12:40] LABS: Albumin 3.7 g/dL (3.9-5); Blood Urea Nitrogen 11 mg/dL (7-17); Calcium 8.4 mg/dL (8.4-10.2); HDL Cholesterol 45 mg/dL (40-59); Hemolysis Index 8; LDL Cholesterol,Direct 144 mg/dL (50-130)
[2021-07-08 12:41] LABS: Alanine Aminotransferase < 5 units/L (7-56); BUN/Creatinine Ratio 16
== END 2021-07-08 11:29 | disposition home or self-care (01) ==
LOC: LAB 11:28
PROVIDERS: ATTEND Internal Medicine
DX: E11.9 Type 2 diabetes mellitus without complications (principal); E78.5 Hyperlipidemia, unspecified
CPT/HCPCS: 36415; 80053; 80061; 83036

== ENCOUNTER 2021-09-09 17:56 | Emergency (ER) | payer BC ==
[2021-09-09 18:23] VITALS: BP 161/92
--- NOTE | 2021-09-09 19:03 | XRay Report ---
XR shoulder 2+V LT INDICATION / CLINICAL INFORMATION: SHOULDER PAIN. COMPARISON: None available. FINDINGS: BONES/JOINT(S): No acute fracture or subluxation. No significant degenerative changes. SOFT TISSUES: No significant abnormality. ADDITIONAL FINDINGS: None. Signer Name: Richar Bonilla MD Signed: 09/09/2021 6:59 PM Workstation Name: [id number]
[2021-09-09] MEDS ORDERED: IBUPROFEN 400 MG TAB PO ONE (22:06)
[2021-09-09] MEDS ORDERED: ACETAMINOPHEN 325 MG TAB PO ONE (22:06)
--- NOTE | 2021-09-09 22:11 | Emergency Department Report ---
Upper Extremity - HPI Chief Complaint: Extremity Injury, Upper Stated Complaint: SHOULDER PAIN Time Seen by Provider: 09/09/21 21:54 Upper Extremity: Left Shoulder Occurred When: Today Mechanism: Fall Severity: moderate Symptoms: Yes Pain with Movement, No Deformity, No Limited Range of Movement, No Numbness, No Weakness, No Swelling, No Bruising/Ecchymosis, No Laceration or Abrasion Other History: The patient is a 46-year-old female. I have evaluated the patient in the past. She is right-hand dominant. She states that she is not . She presents to the ER today with a complaint of left-sided shoulder pain, after she believes that she rolled out of bed by accident, and landed on her shoulder. She thinks that she may have also hit her head, and her lower back. She denies severe headache, neck pain, chest pain, abdominal pain, shortness of breath, vomiting, diarrhea urinary symptoms, extremity weakness and numbness. She took low-dose Tylenol this morning for pain, but was reluctant to take more, out of concerns for possible sedating effects. She does not believe she had a seizure today. She does report a distant history of seizures, reports compliance with her AED medications, and reports that her last seizure was in January. Her pain is sharp and throbbing, increases with palpation and range of motion, and it decreases with rest. ED Review of Systems ROS: Stated complaint: SHOULDER PAIN Other details as noted in HPI Constitutional: denies: fever Eyes: denies: eye discharge ENT: denies: epistaxis Respiratory: denies: see HPI Cardiovascular: denies: chest pain, palpitations Gastrointestinal: denies: abdominal pain Musculoskeletal: arthralgia, myalgia Neurological: denies: weakness, numbness, paresthesias Psychiatric: anxiety Hematological/Lymphatic: denies: easy bleeding ED Past Medical Hx - Past Medical History Hx Hypertension: Yes Hx Heart Attack/AMI: No Hx Congestive Heart Failure: No Hx Diabetes: Yes Hx Deep Vein Thrombosis: No Hx Pulmonary Embolism: No Hx Liver Disease: No Hx Arthritis: Yes Hx Headaches / Migraines: Yes Hx Seizures: Yes Hx Asthma: Yes Hx COPD: No Hx Tuberculosis: No Hx Dementia: No Hx HIV: No Additional medical history: anemia, svt, endometriosis, BOILS - Surgical History Hx Coronary Stent: No Hx Pacemaker: No Hx Internal Defibrillator: No Additional Surgical History: hernia, tubal ligation, right knee surgery, cardiac ablation (2009). right shoulder dislocation - Social History Smoking Status: Never Smoker - Medications Home Medications: Home Medications Medication Instructions Recorded Confirmed Last Taken Type AtorvaSTATin [Lipitor] 40 mg PO QHS 11/30/20 11/30/20 Unknown History Divalproex ER [DepaKOTE ER] 3,000 mg PO QDAY #30 tablet 11/30/20 Unknown Rx Escitalopram Oxalate [Lexapro] 20 mg PO QHS 11/30/20 11/30/20 Unknown History Fluticasone Propionate [Flovent 50 mcg IH BID MDD 2 puffs 11/30/20 11/30/20 Unknown History Diskus] Fluticasone/Salmeterol [Advair 1 puff IH BID 11/30/20 11/30/20 Unknown History Diskus 500-50 mcg] Losartan [Cozaar] 100 mg PO QDAY 11/30/20 11/30/20 Unknown History Melatonin [Meladox 3MG TAB ER] 3 mg PO QHS 11/30/20 11/30/20 Unknown History Metoprolol [Lopressor TAB] 25 mg PO QDAY 11/30/20 11/30/20 Unknown History Montelukast [Singulair] 10 mg PO QPM 11/30/20 11/30/20 Unknown History Omeprazole 20 mg PO QDAY 11/30/20 11/30/20 Unknown History Prazosin 3 mg PO QHS 11/30/20 11/30/20 Unknown History Tiotropium [Spiriva] 18 mcg IH QDAY MDD 2 puffs 11/30/20 11/30/20 Unknown History glipiZIDE [Glucotrol] 5 mg PO QDAY 11/30/20 11/30/20 Unknown History hydrALAZINE [Apresoline TAB] 50 mg PO TID 11/30/20 11/30/20 Unknown History hydroCHLOROthiazide 37.5 mg PO TID 11/30/20 11/30/20 Unknown History [Hydrochlorothiazide] levETIRAcetam [Keppra TAB] 500 mg PO BID 11/30/20 11/30/20 Unknown History Acetaminophen [Non-Aspirin Extra 650 mg PO Q6HR PRN #30 tablet 09/09/21 Unknown Rx Strength] Ibuprofen [Motrin] 600 mg PO Q8H PRN #30 tablet 09/09/21 Unknown Rx Upper Extremity Exam - Exam General: Vital signs noted. No distress. Alert and acting appropriately. There is no facial droop. The tongue is midline. Extraocular movements are intact bilaterally. There is 5 out of 5 strength in bilateral upper and lower extremities. Sensation is intact to light touch bilateral upper and lower extremities. There is no past-pointing. There is no pronator drift. There is normal [id number]. There is a normal gait. 2+ pulses noted in the bilateral upper and lower extremities. There is no palpable cord. negative Homans sign. Muscular compartments are soft. The pelvis is stable. There is point tenderness to the left lateral shoulder. There is no redness, pus or streaking. Sensation is intact to light touch in the deltoid, median, radial, ulnar distribution. Head and Torso: No HEENT Abnormality, No Neck Tenderness, No Chest/Lungs Abnormality, No Abdominal Tenderness, No Back Tenderness Shoulder Exam: Yes Shoulder Tenderness (There is left-sided shoulder tenderness), Yes Normal Range of Motion in Shoulder (Range of motion in the left shoulder is intact, but slow, secondary to pain), No Clavicle Tenderness, No Shoulder Deformity, No AC Joint Tenderness Arm Exam: No Arm/Humerus Tenderness, No Arm Deformity Elbow: Yes Normal Range of Motion in Elbow, No Elbow Tenderness, No Elbow Deformity Forearm: No Forearm Tenderness, No Forearm Deformity, No Pain with Pronation, No Pain with Supination Wrist: Yes Normal ROM in Wrist, No Wrist Tenderness, No Wrist Deformity, No S nuffbox Tenderness, No Pain with Axial Thumb Compression Hand: Yes Normal ROM in Digit(s), No Hand Tenderness, No Hand Deformity, No Digit Tenderness, No Digit(s) Deformity, No Tendon Dysfunction CMS Exam: Yes Normal Distal Pulses, Yes Normal Capillary Refill, Yes Normal Distal Sensation, No Broken Skin ED Course Vital Signs 09/09/21 18:23 Temperature 98 F Pulse Rate 71 Respiratory 16 Rate Blood Pressure 161/92 [Right] O2 Sat by Pulse 99 Oximetry ED Medical Decision Making - Lab Data Vital Signs 09/09/21 18:23 Temperature 98 F Pulse Rate 71 Respiratory 16 Rate Blood Pressure 161/92 [Right] O2 Sat by Pulse 99 Oximetry - Radiology Data Radiology results: pending, report reviewed, image reviewed XR shoulder 2+V LT INDICATION / CLINICAL INFORMATION: SHOULDER PAIN. COMPARISON: None available. FINDINGS: BONES/JOINT(S): No acute fracture or subluxation. No significant degenerative changes. SOFT TISSUES: No significant abnormality. ADDITIONAL FINDINGS: None. Signer Name: Richar Bonilla MD Signed: 09/09/2021 5:59 PM Workstation Name: [id number] - Medical Decision Making Differential diagnosis, including but not limited to: Sprain, strain, fracture, dislocation, blunt shoulder injury Assessment and plan: 46-year-old female, who was afebrile, with reassuring vital signs, clinically sober, with a GCS of 15, patient is clinically sober at this time. The cervical spine is cleared through nexus and [place] c spine rule with a primary complaint of left-sided shoulder pain after blunt trauma. X-rays negative for acute fracture or dislocation. Physical examination benign unremarkable. Patient counseled on the natural history of blunt trauma. Tylenol, Motrin, rest, ice, compression, elevation, range of motion activity, outpatient follow-up. Patient articulated understanding. Return precautions reviewed. During the history and physical examination, I am chaperoned by Roxanna Culp Critical care attestation.: If time is entered above; I have spent that time in minutes in the direct care of this critically ill patient, excluding procedure time. ED Disposition Clinical Impression: Fall, Left shoulder pain Disposition: 01 HOME / SELF CARE / HOMELESS Is pt being admited?: No Does the pt Need Aspirin: No Condition: Stable Instructions: Shoulder Pain, RICE Therapy for Routine Care of Injuries Additional Instructions: As we discussed, pain typically gets worse before it gets better after blunt trauma. Rest and avoid heavy lifting, and avoid strenuous physical activity. Engage in physical activities as tolerated. Alternate ice packs and heat packs as needed for physical pain. For pain, the patient can take ibuprofen, 600 mg with food every 6 hours, alternating with acetaminophen, 650 mg every 4 hours, also which can be purchased [id number]. Return to the ER right away with new pain, worsened pain, migration of pain, fevers, chills, confusion, weakness, numbness, intractable nausea or vomiting, severe chest pain, or severe abdominal pain. Follow-up with your primary care doctor in 7 to 10 days for repeat checkup and evaluation Referrals: AVEL HOWELL MD [Primary Care Provider] - 3-5 Days Forms: Work/School Release Form(ED)
== END 2021-09-09 22:29 | disposition home or self-care (01) ==
LOC: ED 17:56
DX: M25.512 Pain in left shoulder (principal); I10 Essential (primary) hypertension; E11.8 Type 2 diabetes mellitus with unspecified complications; G43.909 Migraine, unspecified, not intractable, without status migrainosus; J45.909 Unspecified asthma, uncomplicated; M19.90 Unspecified osteoarthritis, unspecified site; N80.9 Endometriosis, unspecified; Z98.51 Tubal ligation status; Z98.890 Other specified postprocedural states; Z88.5 Allergy status to narcotic agent; Z88.0 Allergy status to penicillin; W19.XXXA Unspecified fall, initial encounter; Y93.89 Activity, other specified; Y92.89 Other specified places as the place of occurrence of the external cause; Y99.8 Other external cause status
CPT/HCPCS: 99283

== ENCOUNTER 2021-10-15 14:19 | Emergency (ER) | payer OTHER, BC ==
[2021-10-15 15:18] VITALS: BP 182/98
[2021-10-15] MEDS ORDERED: IPRATROPIUM/ALBUTEROL SULFATE 3 ML AMPUL.NEB IH ONE (15:37)
[2021-10-15] MEDS ORDERED: dexAMETHasone 4 MG/ML VIAL IM ONE (15:37)
--- NOTE | 2021-10-15 17:40 | Emergency Department Report ---
ED Asthma HPI - General Chief Complaint: Adult Asthma Stated Complaint: DIFFICULTY BREATHING Time Seen by Provider: 10/15/21 15:36 Source: patient Mode of arrival: Ambulatory Limitations: No Limitations - History of Present Illness Initial Comments: 38-year-old female with known past medical history of asthma [facility] department complaining of asthma exacerbation of unknown etiology not responding to her usual home medications so she presents emergency department seeking further evaluation and treatment options. MD Complaint: "asthma attack", wheezing -: Gradual Severity: moderate Associated Symptoms: dry cough - Related Data Home Medications Medication Instructions Recorded Confirmed Last Taken AtorvaSTATin [Lipitor] 40 mg PO QHS 11/30/20 11/30/20 Unknown Escitalopram Oxalate [Lexapro] 20 mg PO QHS 11/30/20 11/30/20 Unknown Fluticasone Propionate [Flovent 50 mcg IH BID MDD 2 puffs 11/30/20 11/30/20 Unknown Diskus] Fluticasone/Salmeterol [Advair 1 puff IH BID 11/30/20 11/30/20 Unknown Diskus 500-50 mcg] Losartan [Cozaar] 100 mg PO QDAY 11/30/20 11/30/20 Unknown Melatonin [Meladox 3MG TAB ER] 3 mg PO QHS 11/30/20 11/30/20 Unknown Metoprolol [Lopressor TAB] 25 mg PO QDAY 11/30/20 11/30/20 Unknown Montelukast [Singulair] 10 mg PO QPM 11/30/20 11/30/20 Unknown Omeprazole 20 mg PO QDAY 11/30/20 11/30/20 Unknown Prazosin 3 mg PO QHS 11/30/20 11/30/20 Unknown Tiotropium [Spiriva] 18 mcg IH QDAY MDD 2 puffs 11/30/20 11/30/20 Unknown glipiZIDE [Glucotrol] 5 mg PO QDAY 11/30/20 11/30/20 Unknown hydrALAZINE [Apresoline TAB] 50 mg PO TID 11/30/20 11/30/20 Unknown hydroCHLOROthiazide 37.5 mg PO TID 11/30/20 11/30/20 Unknown [Hydrochlorothiazide] levETIRAcetam [Keppra TAB] 500 mg PO BID 11/30/20 11/30/20 Unknown Previous Rx's Medication Instructions Recorded Last Taken Type Divalproex ER [DepaKOTE ER] 3,000 mg PO QDAY #30 tablet 11/30/20 Unknown Rx Acetaminophen [Non-Aspirin Extra 650 mg PO Q6HR PRN #30 tablet 09/09/21 Unknown Rx Strength] Ibuprofen [Motrin] 600 mg PO Q8H PRN #30 tablet 09/09/21 Unknown Rx Albuterol Mdi (or & Nicu Only) 2 puff IH QID PRN #1 inhalation 10/15/21 Unknown Rx [ProAir HFA Inhaler] Benzonatate [Tessalon Perles] 100 mg PO Q8HR #20 cap 10/15/21 Unknown Rx Montelukast [Singulair] 10 mg PO QPM #14 tablet 10/15/21 Unknown Rx predniSONE [Deltasone] 50 mg PO QDAY #5 tab 10/15/21 Unknown Rx Allergies Allergy/AdvReac Type Severity Reaction Status Date / Time hydromorphone [From Dilaudid] Allergy Hives Verified 09/09/21 18:22 Penicillins Allergy Rash Verified 09/09/21 18:22 Tomato Allergy Hives Uncoded 07/21/16 22:52 wasp Allergy Hives Uncoded 10/15/21 15:19 ED Review of Systems ROS: Stated complaint: DIFFICULTY BREATHING Other details as noted in HPI Comment: All other systems reviewed and negative ED Past Medical Hx - Past Medical History Hx Hypertension: Yes Hx Heart Attack/AMI: No Hx Congestive Heart Failure: No Hx Diabetes: Yes Hx Deep Vein Thrombosis: No Hx Pulmonary Embolism: No Hx Liver Disease: No Hx Arthritis: Yes Hx Headaches / Migraines: Yes Hx Seizures: Yes Hx Asthma: Yes Hx COPD: No Hx Tuberculosis: No Hx Dementia: No Hx HIV: No Additional medical history: anemia, svt, endometriosis, BOILS - Surgical History Hx Coronary Stent: No Hx Pacemaker: No Hx Internal Defibrillator: No Additional Surgical History: hernia, tubal ligation, right knee surgery, cardiac ablation (2009). right shoulder dislocation - Social History Smoking Status: Never Smoker - Medications Home Medications: Home Medications Medication Instructions Recorded Confirmed Last Taken Type AtorvaSTATin [Lipitor] 40 mg PO QHS 11/30/20 11/30/20 Unknown History Divalproex ER [DepaKOTE ER] 3,000 mg PO QDAY #30 tablet 11/30/20 Unknown Rx Escitalopram Oxalate [Lexapro] 20 mg PO QHS 11/30/20 11/30/20 Unknown History Fluticasone Propionate [Flovent 50 mcg IH BID MDD 2 puffs 11/30/20 11/30/20 Unknown History Diskus] Fluticasone/Salmeterol [Advair 1 puff IH BID 11/30/20 11/30/20 Unknown History Diskus 500-50 mcg] Losartan [Cozaar] 100 mg PO QDAY 11/30/20 11/30/20 Unknown History Melatonin [Meladox 3MG TAB ER] 3 mg PO QHS 11/30/20 11/30/20 Unknown History Metoprolol [Lopressor TAB] 25 mg PO QDAY 11/30/20 11/30/20 Unknown History Montelukast [Singulair] 10 mg PO QPM 11/30/20 11/30/20 Unknown History Omeprazole 20 mg PO QDAY 11/30/20 11/30/20 Unknown History Prazosin 3 mg PO QHS 11/30/20 11/30/20 Unknown History Tiotropium [Spiriva] 18 mcg IH QDAY MDD 2 puffs 11/30/20 11/30/20 Unknown History glipiZIDE [Glucotrol] 5 mg PO QDAY 11/30/20 11/30/20 Unknown History hydrALAZINE [Apresoline TAB] 50 mg PO TID 11/30/20 11/30/20 Unknown History hydroCHLOROthiazide 37.5 mg PO TID 11/30/20 11/30/20 Unknown History [Hydrochlorothiazide] levETIRAcetam [Keppra TAB] 500 mg PO BID 11/30/20 11/30/20 Unknown History Acetaminophen [Non-Aspirin Extra 650 mg PO Q6HR PRN #30 tablet 09/09/21 Unknown Rx Strength] Ibuprofen [Motrin] 600 mg PO Q8H PRN #30 tablet 09/09/21 Unknown Rx Albuterol Mdi (or & Nicu Only) 2 puff IH QID PRN #1 inhalation 10/15/21 Unknown Rx [ProAir HFA Inhaler] Benzonatate [Tessalon Perles] 100 mg PO Q8HR #20 cap 10/15/21 Unknown Rx Montelukast [Singulair] 10 mg PO QPM #14 tablet 10/15/21 Unknown Rx predniSONE [Deltasone] 50 mg PO QDAY #5 tab 10/15/21 Unknown Rx ED Physical Exam - General Limitations: No Limitations General appearance: alert, in no apparent distress - Head Head exam: Present: atraumatic, normocephalic - Eye Eye exam: Present: normal appearance - ENT ENT exam: Present: mucous membranes moist - Neck Neck exam: Present: normal inspection - Respiratory Respiratory exam: Present: wheezes, rhonchi. Absent: respiratory distress - Cardiovascular Cardiovascular Exam: Present: regular rate, normal rhythm. Absent: systolic murmur, diastolic murmur, rubs, gallop - GI/Abdominal GI/Abdominal exam: Present: soft, normal bowel sounds - Extremities Exam Extremities exam: Present: normal inspection - Back Exam Back exam: Present: normal inspection - Neurological Exam Neurological exam: Present: alert, oriented X3 - Psychiatric Psychiatric exam: Present: normal affect, normal mood - Skin Skin exam: Present: warm, dry, intact, normal color. Absent: rash ED Course Vital Signs 10/15/21 15:16 Temperature 98.9 F Pulse Rate 80 Respiratory 20 Rate Blood Pressure 182/98 [Left] O2 Sat by Pulse 99 Oximetry ED Medical Decision Making - Radiology Data Radiology results: report reviewed - Medical Decision Making No altered mental status, saddle respirations, belly breathing or other signs of impending ventilatory failure. No intubations or recent admissions to the hospital for asthma. Unlikely pneumonia, CHF, COPD, GERD Workup Review include a chest x-ray which was normal she also received steroids and albuterol Therapies: Prednisone 50 mg PO. Albuterol nebulizer Reassessment: Patient improved with albuterol and ipratropium in less than 3 hours. Disposition: Discharge home with return precautions. Advised to follow up with primary care physician within next 24-48 hours. Aside from this acute exacerbation patient has been well controlled on baseline home regimen. Rx short steroid course, albuterol, Singulair, Flovent Critical care attestation.: If time is entered above; I have spent that time in minutes in the direct care of this critically ill patient, excluding procedure time. ED Disposition Clinical Impression: Acute asthma exacerbation, Asthma Disposition: HOME / SELF CARE / HOMELESS Is pt being admited?: No Does the pt Need Aspirin: No Condition: Stable Instructions: Asthma, Adult, Cough, Adult, [id number], How to Use a Metered Dose Inhaler, Cough, Adult, Asthma (ED) Prescriptions: predniSONE [Deltasone] 50 mg PO QDAY #5 tab Albuterol Mdi (or & Nicu Only) [ProAir HFA Inhaler] 2 puff IH QID PRN #1 inhalation PRN Reason: Shortness Of Breath Montelukast [Singulair] 10 mg PO QPM #14 tablet Benzonatate [Tessalon Perles] 100 mg PO Q8HR #20 cap Referrals: PRIMARY CAREMD [Primary Care Provider] - 3-5 Days ARTURO MENG MD [Staff Physician] - 3-5 Days
--- NOTE | 2021-10-15 18:27 | XRay Report ---
CHEST 2 VIEWS INDICATION / CLINICAL INFORMATION: cough an dsob. COMPARISON: 11/30/2020 FINDINGS: SUPPORT DEVICES: None. HEART / MEDIASTINUM: No significant abnormality. LUNGS / PLEURA: No significant pulmonary or pleural abnormality. No pneumothorax. ADDITIONAL FINDINGS: No significant additional findings. IMPRESSION: 1. No acute findings. Signer Name: Jersey Rodriguez MD Signed: 10/15/2021 6:23 PM Workstation Name: [id number]
== END 2021-10-15 19:20 | disposition home or self-care (01) ==
LOC: ED 14:19
DX: J45.901 Unspecified asthma with (acute) exacerbation (principal); I10 Essential (primary) hypertension; E11.9 Type 2 diabetes mellitus without complications; M19.90 Unspecified osteoarthritis, unspecified site; G43.909 Migraine, unspecified, not intractable, without status migrainosus; N80.9 Endometriosis, unspecified; Z98.51 Tubal ligation status; Z98.890 Other specified postprocedural states; Z88.0 Allergy status to penicillin; Z88.5 Allergy status to narcotic agent; Z91.018 Allergy to other foods; Z91.038 Other insect allergy status
CPT/HCPCS: 71046; 94640; 96372; 99283; J1100

== ENCOUNTER 2021-12-01 12:18 | Outpatient (CLI) | payer BC ==
[2021-12-01 12:49] LABS: Basophils % (Auto) 0.3 % (0.0-1.8); Eosinophils % (Auto) 0.3 % (0.0-4.3); Hematocrit 36.3 % (30.3-42.9); Hemoglobin 12.1 gm/dl (10.1-14.3); Lymphocytes # (Auto) 2.1 K/mm3 (1.2-5.4); Lymphocytes % (Auto) 36.3 % (13.4-35.0); Mean Corpuscular HGB Conc 33 % (30-34); Mean Corpuscular Volume 92 fl (79-97); Monocytes # (Auto) 0.2 K/mm3 (0.0-0.8); Monocytes % (Auto) 4.1 % (0.0-7.3); Platelet Count 302 K/mm3 (140-440); Red Blood Count 3.96 M/mm3 (3.65-5.03); Red Cell Distribution Width 13.9 % (13.2-15.2)
[2021-12-01 13:13] LABS: Alanine Aminotransferase 15 units/L (7-56); Albumin 4.5 g/dL (3.9-5); BUN/Creatinine Ratio 13; Blood Urea Nitrogen 10 mg/dL (7-17); Calcium 9.8 mg/dL (8.4-10.2); Chol/HDL Ratio 3.76 %; HDL Cholesterol 56 mg/dL (40-59); Hemolysis Index 1; LDL Cholesterol,Direct 134 mg/dL (50-130)
[2021-12-02 13:19] LABS: Creatinine,Urine 435.2 mg/dL (0.1-20.0)
[2021-12-02 13:20] LABS: Microalbumin/Creatinine Ratio 4.3 ug/mg
== END 2021-12-01 12:19 | disposition home or self-care (01) ==
LOC: LAB 12:18
PROVIDERS: ATTEND Internal Medicine
DX: Z00.00 Encounter for general adult medical examination without abnormal findings (principal); I10 Essential (primary) hypertension; R53.83 Other fatigue; E11.9 Type 2 diabetes mellitus without complications; E78.5 Hyperlipidemia, unspecified; E55.9 Vitamin D deficiency, unspecified
CPT/HCPCS: 36415; 80053; 80061; 82043; 82306; 83036; 84443; 85025

== ENCOUNTER 2022-04-10 16:10 | Emergency (ER) | payer BC ==
[2022-04-10] MEDS ORDERED: SODIUM CHLORIDE 0.9% 1000 ML 1,000 ML IV ONE (17:05)
[2022-04-10 18:08] LABS: Basophils % (Auto) 0.3 % (0.0-1.8); Eosinophils % (Auto) 0.4 % (0.0-4.3); Hematocrit 36.3 % (30.3-42.9); Hemoglobin 12.1 gm/dl (10.1-14.3); Lymphocytes # (Auto) 2.6 K/mm3 (1.2-5.4); Lymphocytes % (Auto) 41.2 % (13.4-35.0); Mean Corpuscular HGB Conc 33 % (30-34); Mean Corpuscular Volume 90 fl (79-97); Monocytes # (Auto) 0.4 K/mm3 (0.0-0.8); Monocytes % (Auto) 7.1 % (0.0-7.3); Platelet Count 263 K/mm3 (140-440); Red Blood Count 4.05 M/mm3 (3.65-5.03); Red Cell Distribution Width 15.2 % (13.2-15.2)
[2022-04-10 18:27] LABS: Alanine Aminotransferase 8 units/L (7-56); Albumin 4.2 g/dL (3.9-5); BUN/Creatinine Ratio 14; Blood Urea Nitrogen 11 mg/dL (7-17); Calcium 9.7 mg/dL (8.4-10.2); Hemolysis Index 6
--- NOTE | 2022-04-10 20:17 | Emergency Department Report ---
ED Seizure HPI - General Chief Complaint: Seizure Stated Complaint: SEIZURES Time Seen by Provider: 04/10/22 17:03 Source: EMS Mode of arrival: Stretcher Limitations: Other - History of Present Illness Initial Comments: WITNESSED SEIZURE. PATIENT POST ICTAL 2MG ATIVAN GIVEN BY EMS pt has history fo seziures takes keppra and depakote , no head injuyr no incontinence MD Complaint: seizure -: Sudden, hour(s) Description of Episode: loss of consciousness, tonic-clonic movement Witnessed:: Yes Trauma: No Seizure History: known seizure disorder Place: home Possible Precipitating Event: none Associated Symptoms: denies: denies other symptoms, chest pain, confusion, cough - Related Data Home Medications Medication Instructions Recorded Confirmed Last Taken AtorvaSTATin [Lipitor] 40 mg PO QHS 11/30/20 11/30/20 Unknown Escitalopram Oxalate [Lexapro] 20 mg PO QHS 11/30/20 11/30/20 Unknown Fluticasone Propionate [Flovent 50 mcg IH BID MDD 2 puffs 11/30/20 11/30/20 Unknown Diskus] Fluticasone/Salmeterol [Advair 1 puff IH BID 11/30/20 11/30/20 Unknown Diskus 500-50 mcg] Losartan [Cozaar] 100 mg PO QDAY 11/30/20 11/30/20 Unknown Melatonin [Meladox 3MG TAB ER] 3 mg PO QHS 11/30/20 11/30/20 Unknown Metoprolol [Lopressor TAB] 25 mg PO QDAY 11/30/20 11/30/20 Unknown Montelukast [Singulair] 10 mg PO QPM 11/30/20 11/30/20 Unknown Omeprazole 20 mg PO QDAY 11/30/20 11/30/20 Unknown Prazosin 3 mg PO QHS 11/30/20 11/30/20 Unknown Tiotropium [Spiriva] 18 mcg IH QDAY MDD 2 puffs 11/30/20 11/30/20 Unknown glipiZIDE [Glucotrol] 5 mg PO QDAY 11/30/20 11/30/20 Unknown hydrALAZINE [Apresoline TAB] 50 mg PO TID 11/30/20 11/30/20 Unknown hydroCHLOROthiazide 37.5 mg PO TID 11/30/20 11/30/20 Unknown [Hydrochlorothiazide] levETIRAcetam [Keppra TAB] 500 mg PO BID 11/30/20 11/30/20 Unknown Previous Rx's Medication Instructions Recorded Last Taken Type Divalproex ER [DepaKOTE ER] 3,000 mg PO QDAY #30 tablet 11/30/20 Unknown Rx Acetaminophen [Non-Aspirin Extra 650 mg PO Q6HR PRN #30 tablet 09/09/21 Unknown Rx Strength] Ibuprofen [Motrin] 600 mg PO Q8H PRN #30 tablet 09/09/21 Unknown Rx Albuterol Mdi (or & Nicu Only) 2 puff IH QID PRN #1 inhalation 10/15/21 Unknown Rx [ProAir HFA Inhaler] Benzonatate [Tessalon Perles] 100 mg PO Q8HR #20 cap 10/15/21 Unknown Rx Montelukast [Singulair] 10 mg PO QPM #14 tablet 10/15/21 Unknown Rx predniSONE [Deltasone] 50 mg PO QDAY #5 tab 10/15/21 Unknown Rx Allergies Allergy/AdvReac Type Severity Reaction Status Date / Time hydromorphone [From Dilaudid] Allergy Hives Verified 09/09/21 18:22 Penicillins Allergy Rash Verified 09/09/21 18:22 Tomato Allergy Hives Uncoded 07/21/16 22:52 wasp Allergy Hives Uncoded 10/15/21 15:19 ED Review of Systems ROS: Stated complaint: SEIZURES Other details as noted in HPI Constitutional: denies: chills, fever Eyes: denies: eye pain, eye discharge, vision change ENT: denies: ear pain, throat pain Respiratory: denies: cough, shortness of breath, wheezing Cardiovascular: denies: chest pain, palpitations Endocrine: no symptoms reported Gastrointestinal: denies: abdominal pain, nausea, diarrhea Genitourinary: denies: urgency, dysuria, discharge Musculoskeletal: denies: back pain, joint swelling, arthralgia Skin: denies: rash, lesions Neurological: denies: headache, weakness, paresthesias Psychiatric: denies: anxiety, depression Hematological/Lymphatic: denies: easy bleeding, easy bruising ED Past Medical Hx - Past Medical History Hx Hypertension: Yes Hx Heart Attack/AMI: No Hx Congestive Heart Failure: No Hx Diabetes: Yes Hx Deep Vein Thrombosis: No Hx Pulmonary Embolism: No Hx Liver Disease: No Hx Arthritis: Yes Hx Headaches / Migraines: Yes Hx Seizures: Yes Hx Asthma: Yes Hx COPD: No Hx Tuberculosis: No Hx Dementia: No Hx HIV: No Additional medical history: anemia, svt, endometriosis, BOILS - Surgical History Hx Coronary Stent: No Hx Pacemaker: No Hx Internal Defibrillator: No Additional Surgical History: hernia, tubal ligation, right knee surgery, cardiac ablation (2009). right shoulder dislocation - Social History Smoking Status: Unknown if ever smoked - Medications Home Medications: Home Medications Medication Instructions Recorded Confirmed Last Taken Type AtorvaSTATin [Lipitor] 40 mg PO QHS 11/30/20 11/30/20 Unknown History Divalproex ER [DepaKOTE ER] 3,000 mg PO QDAY #30 tablet 11/30/20 Unknown Rx Escitalopram Oxalate [Lexapro] 20 mg PO QHS 11/30/20 11/30/20 Unknown History Fluticasone Propionate [Flovent 50 mcg IH BID MDD 2 puffs 11/30/20 11/30/20 Unknown History Diskus] Fluticasone/Salmeterol [Advair 1 puff IH BID 11/30/20 11/30/20 Unknown History Diskus 500-50 mcg] Losartan [Cozaar] 100 mg PO QDAY 11/30/20 11/30/20 Unknown History Melatonin [Meladox 3MG TAB ER] 3 mg PO QHS 11/30/20 11/30/20 Unknown History Metoprolol [Lopressor TAB] 25 mg PO QDAY 11/30/20 11/30/20 Unknown History Montelukast [Singulair] 10 mg PO QPM 11/30/20 11/30/20 Unknown History Omeprazole 20 mg PO QDAY 11/30/20 11/30/20 Unknown History Prazosin 3 mg PO QHS 11/30/20 11/30/20 Unknown History Tiotropium [Spiriva] 18 mcg IH QDAY MDD 2 puffs 11/30/20 11/30/20 Unknown History glipiZIDE [Glucotrol] 5 mg PO QDAY 11/30/20 11/30/20 Unknown History hydrALAZINE [Apresoline TAB] 50 mg PO TID 11/30/20 11/30/20 Unknown History hydroCHLOROthiazide 37.5 mg PO TID 11/30/20 11/30/20 Unknown History [Hydrochlorothiazide] levETIRAcetam [Keppra TAB] 500 mg PO BID 11/30/20 11/30/20 Unknown History Acetaminophen [Non-Aspirin Extra 650 mg PO Q6HR PRN #30 tablet 09/09/21 Unknown Rx Strength] Ibuprofen [Motrin] 600 mg PO Q8H PRN #30 tablet 09/09/21 Unknown Rx Albuterol Mdi (or & Nicu Only) 2 puff IH QID PRN #1 inhalation 10/15/21 Unknown Rx [ProAir HFA Inhaler] Benzonatate [Tessalon Perles] 100 mg PO Q8HR #20 cap 10/15/21 Unknown Rx Montelukast [Singulair] 10 mg PO QPM #14 tablet 10/15/21 Unknown Rx predniSONE [Deltasone] 50 mg PO QDAY #5 tab 10/15/21 Unknown Rx ED Physical Exam - General Limitations: Other General appearance: in no apparent distress, other (drowsy sleepy ) - Head Head exam: Present: atraumatic, normocephalic - Eye Eye exam: Present: normal appearance - ENT ENT exam: Present: mucous membranes moist - Neck Neck exam: Present: normal inspection - Respiratory Respiratory exam: Present: normal lung sounds bilaterally. Absent: respiratory distress - Cardiovascular Cardiovascular Exam: Present: regular rate, normal rhythm. Absent: systolic murmur, diastolic murmur, rubs, gallop - GI/Abdominal GI/Abdominal exam: Present: soft, normal bowel sounds - Extremities Exam Extremities exam: Present: normal inspection - Back Exam Back exam: Present: normal inspection - Psychiatric Psychiatric exam: Present: normal affect, normal mood - Skin Skin exam: Present: warm, dry, intact, normal color. Absent: rash ED Course Vital Signs 04/10/22 04/10/22 04/10/22 16:14 16:52 17:01 Temperature 98.4 F Pulse Rate 90 66 76 Respiratory 18 15 17 Rate Blood Pressure 135/78 Blood Pressure 152/90 [Left] O2 Sat by Pulse 99 96 Oximetry 04/10/22 04/10/22 17:05 18:01 Temperature Pulse Rate 64 Respiratory 15 Rate Blood Pressure 131/85 Blood Pressure [Left] O2 Sat by Pulse 100 100 Oximetry ED Medical Decision Making - Lab Data Result diagrams: 04/10/22 17:43 07/18/22 17:43 - Medical Decision Making pt was given ativan 2 before coming here pt is asleep/post ictal , observed for 4 hours and she back to her baseline , remembers everything and vss, pt is goingt o beggs for possible vegal nerve stimulator and has an MRI scheduled on Critical care attestation.: If time is entered above; I have spent that time in minutes in the direct care of this critically ill patient, excluding procedure time. ED Disposition Clinical Impression: Seizure Disposition: 01 HOME / SELF CARE / HOMELESS Is pt being admited?: No Does the pt Need Aspirin: No Condition: Stable Instructions: Epilepsy Forms: Work/School Release Form(ED)
[2022-04-10 23:34] VITALS: BP 156/89
== END 2022-04-10 23:34 | disposition home or self-care (01) ==
LOC: ED 16:10
DX: R56.9 Unspecified convulsions (principal); I10 Essential (primary) hypertension; E11.9 Type 2 diabetes mellitus without complications; M19.90 Unspecified osteoarthritis, unspecified site; J45.909 Unspecified asthma, uncomplicated; G43.909 Migraine, unspecified, not intractable, without status migrainosus; Z88.0 Allergy status to penicillin; Z88.6 Allergy status to analgesic agent; Z88.1 Allergy status to other antibiotic agents; Z91.02 Food additives allergy status; Z79.899 Other long term (current) drug therapy
CPT/HCPCS: 36415; 80053; 80164; 85025; 96360; 99283; J7030; 80320; G0480

== ENCOUNTER 2022-04-17 09:05 | Outpatient (CLI) | payer BC ==
[2022-04-17 12:38] LABS: Chol/HDL Ratio 4.41 %
== END 2022-04-17 09:06 | disposition home or self-care (01) ==
LOC: LABHHL 09:05
PROVIDERS: ATTEND Internal Medicine
DX: E11.9 Type 2 diabetes mellitus without complications (principal); E78.5 Hyperlipidemia, unspecified
CPT/HCPCS: 36415; 80061; 83036